=== PATIENT | male | born 1990 | race Caucasian/White ===

== ENCOUNTER 2017-12-24 20:12 | Emergency (ER) | payer BC, MEDICAID ==
--- NOTE | 2017-12-24 20:13 | EDPHY ---
H & P Time Seen by Provider: 12/24/17 20:20 Constitutional: Initial Vital Signs Temperature (C) 36.8 C 12/24/17 20:19 Heart Rate 90 12/24/17 20:19 Respiratory Rate 16 12/24/17 20:19 Blood Pressure 124/86 H 12/24/17 20:19 O2 Sat (%) 95 12/24/17 20:19 O2 Delivery Mode Room Air O2 (L/minute) 2 Allergies/Adverse Reactions: No Known Allergies Allergy (Unverified 12/24/17 20:21) Home Medications: Medication Instructions Recorded NK [No Known Home Meds] 12/24/17 Medical Decision Making ED Course/Re-evaluation: CHIEF COMPLAINT: Alcohol intoxication. HISTORY OF PRESENT ILLNESS: The patient is a chronic alcoholic living on the [address]. Patient drinks on a daily basis and obtains whatever alcohol is available. Patient was found outside the group home where he was waiting for a bed and bystanders called the EMS system. Patient denies any injuries denies loss of consciousness denies any recent trauma. Patient denies co-ingestion. Patient denies suicidal or homicidal behavior. REVIEW OF SYSTEMS: A comprehensive 10 system review of systems is otherwise negative aside from elements mentioned in the history of present illness and medical decision making. PHYSICAL EXAM: General Appearance: Alert, well hydrated, appropriate, and non-toxic appearing. Head: Atraumatic without scalp tenderness or obvious injury Eyes: Pupils equal, round, reactive to light and accommodation, EOMI, no trauma , no injection. Ears: Clear bilaterally, no perforation, normal landmarks Nose: Atraumatic, no rhinorrhea, clear. Throat: There is no erythema or exudates, no lesions, normal tonsils, mucus membranes moist. Neck: Supple, 2+ carotid upstroke, nontender, no lymphadenopathy. Respiratory: No retractions, no distress, no wheezes, and no accessory muscle use. Lungs are clear to auscultation bilaterally. Cardiovascular: Regular rate and rhythm, no murmurs, rubs, or gallops. Bilateral carotid, radial, dorsalis pedis, and posterior tibial pulses intact. Good capillary refill all extremities. Gastrointestinal: Abdomen is soft, nontender, non-distended, no masses, no rebound, no guarding, no peritoneal signs. Musculoskeletal: Normal active ROM of all extremities, atraumatic. Neurological: Alert, appropriate, and interactive. The patient has normal DTRs and non-focal cranial nerves, motor, sensory, and cerebellar exam. Skin: No rashes, good turgor, no nodules on palpation. PAST MEDICAL HISTORY: Denies. PAST SURGICAL HISTORY: Denies. SOCIAL HISTORY: Transient. Lives in [place]. History of alcohol abuse. DIFFERENTIAL DIAGNOSIS: Includes but not limited to alcohol intoxication, polysubstance abuse. MEDICAL DECISION MAKING: I serially examined this patient since the patient's arrival here in the emergency department. The patient continues to become more and more sober with each examination. I serially questioned the patient and the patient's story given initially has not changed. The patient still denies any trauma, any head injury, and any illicit drug use. At this point, the patient is walking the department freely and is clinically sober. We're discharging the patient to the [facility] in stable condition. (Kristofer Davila) I accepted sign-out on this patient at approximately 10:15 p.m.. The patient was eventually able to walk with a steady gait and was [facility] with [facility]. (Sarah Isaacs) - Data Points Medications Given: Discontinued Medications Chlordiazepoxide (Librium 25 Mg Prepack#6) 1 btl TAKEHOME EDNOW ONE Stop: 12/25/17 03:55 Last Admin: 12/25/17 03:55 Dose: 1 btl Chlordiazepoxide HCl (Librium) 25 mg PO EDNOW ONE Stop: 12/25/17 03:51 Last Admin: 12/25/17 03:53 Dose: 25 mg Famotidine (Pepcid) 40 mg IVP EDNOW ONE Stop: 12/24/17 21:55 Last Admin: 12/24/17 22:02 Dose: 40 mg Sodium Chloride (Ns) 1,000 mls @ 0 mls/hr IV EDNOW ONE; Wide Open PRN Reason: Protocol Stop: 12/24/17 20:25 Last Admin: 12/24/17 20:28 Dose: 1,000 mls Ondansetron HCl (Zofran) 4 mg IVP EDNOW ONE Stop: 12/24/17 23:04 Last Admin: 12/24/17 23:04 Dose: 4 mg Promethazine HCl (Phenergan) 12.5 mg IVP ONCE ONE Stop: 12/25/17 00:07 Last Admin: 12/25/17 00:10 Dose: 12.5 mg Departure - Departure Disposition: Home, Routine, Self-Care Clinical Impression: Alcoholic intoxication Qualifiers: Complication of substance-induced condition: with delirium Qualified Code(s): F10.921 - Alcohol use, unspecified with intoxication delirium Vomiting Qualifiers: Vomiting type: unspecified Vomiting Intractability: non-intractable Nausea presence: with nausea Qualified Code(s): R11.2 - Nausea with vomiting, unspecified Condition: Good Instructions: At-Risk Alcohol Use (ED) Additional Instructions: Please return to the emergency department if your worse in any way. Referrals: [facility] [Outside] - As per Instructions Report Scribed for: Kristofer Davila Report Scribed by: Lucila Padron Date of Report: 12/24/17 Time of Report: 20:16
[2017-12-24] MEDS ORDERED: NS 1,000 ML IV ONE (20:24)
[2017-12-24] MEDS ORDERED: FAMOTIDINE 20 MG/2 ML SDV IVP ONE (21:54)
[2017-12-24] MEDS ORDERED: ONDANSETRON 4 MG/2 ML VIAL ONE (22:59)
[2017-12-24] MEDS ORDERED: ONDANSETRON 4 MG/2 ML VIAL IVP ONE (23:03)
[2017-12-25] MEDS ORDERED: PROMETHAZINE HCL 25 MG/ML INJ IVP ONE (00:06)
[2017-12-25] MEDS ORDERED: chlordiazePOXIDE 25 MG CAP PO ONE (03:50)
[2017-12-25] MEDS ORDERED: CHLORDIAZEPOXIDE 25MG PREPK#6 BTL TAKEHOME ONE ×2 (03:52→03:54)
[2017-12-25 04:18] VITALS: BP 158/70
== END 2017-12-25 04:17 | disposition home or self-care (01) ==
DX: F10.921 Alcohol use, unspecified with intoxication delirium (principal); R11.2 Nausea with vomiting, unspecified; E86.9 Volume depletion, unspecified
CPT/HCPCS: 96374; J2405; J2550

== ENCOUNTER 2017-12-26 23:53 | Inpatient (IN) | payer BC, MEDICAID ==
[2017-12-27] MEDS ORDERED: NS 1,000 ML IV ONE (00:03)
[2017-12-27] MEDS ORDERED: FAMOTIDINE 20 MG/NACL 50 ML IV ONE (00:03)
[2017-12-27] MEDS ORDERED: ONDANSETRON 4 MG/2 ML VIAL IVP ONE (00:03)
[2017-12-27] MEDS ORDERED: LORazepam 2 MG/ML INJ IVP ONE (00:03)
[2017-12-27] MEDS ORDERED: LORazepam 2 MG/ML INJ IVP PRN (00:10)
[2017-12-27] MEDS ORDERED: LORazepam 1 MG TAB PO PRN (00:10)
[2017-12-27] MEDS ORDERED: MAGNESIUM SULF 2 GM/WATER 50 ML IV ONE ×2 (00:44→09:18)
[2017-12-27 00:46] LABS: PLATELET COUNT 210 10^3/uL (150-400)
[2017-12-27] MEDS ORDERED: IOPAMIDOL (ISOVUE-300) 100 ML BTL ONE (02:19)
[2017-12-27] MEDS ORDERED: ONDANSETRON DISINTEGRATING 4 MG TAB PO PRN (02:58)
[2017-12-27] MEDS ORDERED: ONDANSETRON 4 MG/2 ML VIAL IVP PRN (02:58)
[2017-12-27] MEDS ORDERED: PROMETHAZINE HCL 25 MG/ML INJ IVP PRN (02:58)
[2017-12-27] MEDS ORDERED: NS 1,000 ML IV SCH (03:00)
[2017-12-27] MEDS ORDERED: FLUMAZENIL 0.5 MG/5 ML MDV IVP PRN (03:04)
--- NOTE | 2017-12-27 03:08 | EDPHY ---
H & P Stated Complaint: ETOH withdrawal, tremors, N/V Time Seen by Provider: 12/26/17 23:55 HPI/ROS: HPI The patient presents with nausea, vomiting, abdominal pain which have been present throughout the day today. Symptoms started slowly and got progressively worse. He has had multiple episodes of emesis which began as clear and then became darker. He drinks alcohol daily, he says whenever he can get and has history of alcohol withdrawal. Since about noon today he has been unable to consume any alcohol because of vomiting. He describes an aching epigastric abdominal pain which is moderate in severity getting progressively worse. He is brought in by ambulance. He has 1 prior episode of pancreatitis in which she was [place] the hospital out of state.. REVIEW OF SYSTEMS 10 systems were reviewed and negative with the exception of the elements mentioned in the history of present illness. PMHx: Hypertension, anxiety, PTSD Soc Hx: Alcohol abuse with history of alcohol withdrawal, homeless, moved to [place] about 3 weeks ago PHYSICAL General Appearance: Uncomfortable appearing with mild tremor Eyes: Pupils equal and round no pallor or injection ENT, Mouth: Mucous membranes moist Respiratory: There are no retractions, lungs are clear to auscultation Cardiovascular: Regular rate and rhythm Gastrointestinal: Abdomen is soft and tender in the epigastrium and left upper quadrant without rebound or guarding Neurological: A&O, moves all extremities, mild hand tremor Skin: Warm and dry, no rashes Musculoskeletal: Neck is supple non tender Extremities: symmetrical, full range of motion Psychiatric: Patient is oriented X 3, there is no agitation Source: Patient, EMS Exam Limitations: No limitations - Personal History Current Tetanus/Diphtheria Vaccine: Unsure - Medical/Surgical History Hx Asthma: No Hx Chronic Respiratory Disease: No Hx Diabetes: No Hx Cardiac Disease: No Hx Renal Disease: No Hx Cirrhosis: No Hx Alcoholism: No Hx HIV/AIDS: No Hx Splenectomy or Spleen Trauma: No Other PMH: HTN, anxiety, PTSD, ETOH - Social History Smoking Status: Current every day smoker Constitutional: Initial Vital Signs Temperature (C) 36.8 C 12/27/17 00:01 Heart Rate 95 12/27/17 00:01 Respiratory Rate 16 12/27/17 00:01 Blood Pressure 150/112 H 12/27/17 00:01 O2 Sat (%) 98 12/27/17 00:01 O2 Delivery Mode Room Air O2 (L/minute) 2 Allergies/Adverse Reactions: gabapentin [From Neurontin] Allergy (Verified 12/27/17 00:03) Home Medications: Medication Instructions Recorded NK [No Known Home Meds] 12/24/17 Medical Decision Making - Diagnostics Imaging Results: CT abdomen pelvis demonstrates mild pancreatitis, fatty liver, discussed with the radiologist prison guard. Imaging: Discussed imaging studies w/ call person Radiologist Differential Diagnosis: 27-year-old homeless male with history of alcohol abuse abuse, 1 episode of pancreatitis, presents with epigastric abdominal pain, nausea vomiting, tremors. I suspect she is suffering from either alcoholic gastritis or pancreatitis which then led to nausea and vomiting which prevented him from consuming his usual alcohol is which has put him into mild alcohol withdrawal. Here, he does not have any ongoing vomiting though does feel nauseated and has tenderness in his epigastrium. In the emergency department, patient received IV fluids, medication for pain and antiemetics. He received 2 doses of 1 mg of Ativan with improvement in his withdrawal symptoms. He had ongoing pain despite treatment here. His labs revealed pancreatitis and transaminitis. CT scan is abdomen was obtained which demonstrated fatty liver and pancreatitis. I consulted with Dr. Reeder of the hospitalist service and she will admit the patient for alcohol withdrawal and symptomatic pancreatitis. The patient is happy with this plan. - Data Points Laboratory Results: Laboratory Results 12/27/17 00:05 12/27/17 00:05 12/27/17 12/27/17 00:05 00:05 WBC 9.17 10^3/uL 10^3/uL (3.80-9.50) RBC 4.89 10^6/uL 10^6/uL (4.40-6.38) Hgb 16.0 g/dL g/dL (13.7-17.5) Hct 44.3 % % (40.0-51.0) MCV 90.6 fL fL (81.5-99.8) MCH 32.7 pg pg (27.9-34.1) MCHC 36.1 g/dL g/dL (32.4-36.7) RDW 13.5 % % (11.5-15.2) Plt Count 210 10^3/uL 10^3/uL (150-400) MPV 10.5 fL fL (8.7-11.7) Neut % (Auto) 81.2 % H % (39.3-74.2) Lymph % (Auto) 10.6 % L % (15.0-45.0) [place] % (Auto) 7.4 % % (4.5-13.0) Eos % (Auto) 0.0 % L % (0.6-7.6) Baso % (Auto) 0.4 % % (0.3-1.7) Nucleat RBC Rel Count 0.0 % % (0.0-0.2) Absolute Neuts (auto) 7.44 10^3/uL H 10^3/uL (1.70-6.50) Absolute Lymphs (auto) 0.97 10^3/uL L 10^3/uL (1.00-3.00) Absolute Monos (auto) 0.68 10^3/uL 10^3/uL (0.30-0.80) Absolute Eos (auto) 0.00 10^3/uL L 10^3/uL (0.03-0.40) Absolute Basos (auto) 0.04 10^3/uL 10^3/uL (0.02-0.10) Absolute Nucleated RBC 0.00 10^3/uL 10^3/uL (0-0.01) Immature Gran % 0.4 % % (0.0-1.1) Immature Gran # 0.04 10^3/uL 10^3/uL (0.00-0.10) Sodium 143 mEq/L mEq/L (135-145) Potassium 3.7 mEq/L mEq/L (3.3-5.0) Chloride 91 mEq/L L mEq/L (97-110) Carbon Dioxide 34 mEq/l H mEq/l (22-31) Anion Gap 18 mEq/L H mEq/L (8-16) BUN 10 mg/dL mg/dL (7-23) Creatinine 0.7 mg/dL mg/dL (0.7-1.3) Estimated GFR > 60 Glucose 116 mg/dL H mg/dL (70-100) Calcium 10.4 mg/dL mg/dL (8.5-10.4) Magnesium 1.4 mg/dL L mg/dL (1.6-2.3) Total Bilirubin 1.9 mg/dL H mg/dL (0.1-1.4) Conjugated Bilirubin 0.6 mg/dL H mg/dL (0.0-0.5) Unconjugated Bilirubin 1.3 mg/dL H mg/dL (0.0-1.1) AST 290 IU/L H IU/L (17-59) ALT 272 IU/L H IU/L (21-72) Alkaline Phosphatase 144 IU/L H IU/L (38-126) Total Protein 8.8 g/dL H g/dL (6.3-8.2) Albumin 5.1 g/dL H g/dL (3.5-5.0) Lipase 2640 IU/L H IU/L (23-300) Medications Given: Lorazepam (Ativan Injection) 0 mg IVP Q1H PRN; Protocol PRN Reason: Alcohol Withdrawal w/IV access Stop: 12/27/17 12:10 Last Admin: 12/27/17 02:05 Dose: 1 mg Discontinued Medications Sodium Chloride (Ns) 1,000 mls @ 0 mls/hr IV EDNOW ONE; Wide Open PRN Reason: Protocol Stop: 12/27/17 00:04 Last Admin: 12/27/17 00:10 Dose: 1,000 mls Famotidine/Sodium Chloride (Pepcid 20 Mg (Premix)) 50 mls @ 200 mls/hr IV EDNOW ONE Stop: 12/27/17 00:17 Last Admin: 12/27/17 00:10 Dose: 50 mls Magnesium Sulfate (Magnesium Sulf 2 Gm (Premix)) 50 mls @ 50 mls/hr IV ONCE ONE Stop: 12/27/17 01:43 Last Admin: 12/27/17 01:21 Dose: 50 mls Lorazepam (Ativan Injection) 1 mg IVP EDNOW ONE Stop: 12/27/17 00:04 Last Admin: 12/27/17 00:10 Dose: 1 mg Ondansetron HCl (Zofran) 4 mg IVP EDNOW ONE Stop: 12/27/17 00:04 Last Admin: 12/27/17 00:11 Dose: 4 mg Departure - Departure Disposition: [facility] Clinical Impression: Acute alcoholic pancreatitis Qualifiers: Acute pancreatitis complication: unspecified Qualified Code(s): K85.20 - Alcohol induced acute pancreatitis without necrosis or infection Alcohol withdrawal Qualifiers: Complication of substance-induced condition: with delirium Qualified Code(s): F10.231 - Alcohol dependence with withdrawal delirium Condition: Fair
[2017-12-27 03:18] LABS: INR 0.89 (0.83-1.16); PROTIME(PATIENT) 12.3 SEC (12.0-15.0)
--- NOTE | 2017-12-27 05:15 | PDGENHP ---
History and Physical - Chief Complaint Abdominal pain, nausea and vomiting - History of Present Illness Source-patient provides history is fair historian. EMR was reviewed and case discussed with ED provider. HPI - this is a 27-year-old gentleman with past medical history significant for alcohol dependence, bipolar disorder, anxiety, PTSD who presents emergency department today with complaints of intractable nausea vomiting for 12 hr as well as epigastric abdominal pain. Patient with longstanding history of alcohol dependence. He reports drinking up to on average 1 L of hard liquor every day. He was seen in the emergency department in treated for alcohol intoxication. Patient has continued to drink alcohol and subsequently developed intractable nausea vomiting. He reports he feels very dehydrated has not yet urinated in many hours. Unknown if patient had any hematemesis. He denies any diarrhea. Patient denies any fevers or chills. In the emergency department patient was treated for acute pancreatitis and nausea vomiting. In addition patient had signs symptoms of increasing withdrawal and was given initial dosing of Ativan 1 mg. History Information - Allergies/Home Medication List Allergies/Adverse Reactions: gabapentin [From Neurontin] Allergy (Verified 12/27/17 00:03) Home Medications: NK [No Known Home Meds] 12/24/17 [Last Taken Unknown] I have personally reviewed and updated: family history, medical history, social history, surgical history - Past Medical History Additional medical history: Bipolar disorder, PTSD, anxiety, alcohol dependence - Surgical History Reports: no pertinent surgical hx - Family History Additional family history: Diabetes in grandparents. Grandfather with history of stroke and [place] - Social History Smoking Status: Current every day smoker Alcohol Use: None Drug Use: None Additional social history: Patient is currently homeless. Recently relocated from [place]. Review of Systems Review of Systems: ROS: 10pt was reviewed & negative except for what was stated in HPI & below Constitutional: Denies: chills, fever Respiratory: Denies: cough, shortness of breath Gastrointestinal: Reports: vomitting, abdominal pain (See HPI), nausea. Denies : black stools, diarrhea Genitourinary: Reports: other (Patient reports that he has not made any urine today) Muscolosketal: Reports: no symptoms Skin: Reports: no symptoms (Patient denies any new rashes or sores) Neurological: Reports: anxiety, emotional problems, tremors Physical Exam Physical Exam: Selected Entries 12/27/17 00:01 Blood Pressure Automatic Method Heart Rate 95 Respiratory 16 Rate O2 Sat (%) 98 Temperature (C) 36.8 C Blood Pressure 150/112 H Mean Arterial 124 H Pressure (MAP) O2 Delivery Room Air Mode Temperature Oral Source Temp Pulse Resp BP Pulse Ox 36.7 C 69 16 119/62 97 12/27/17 03:39 12/27/17 03:39 12/27/17 03:39 12/27/17 03:39 12/27/17 03:39 O2 (L/minute) 2 Constitutional: no apparent distress, unkempt, other (NAD. Pleasant young adult gentleman is lying quietly in bed. He wakes easily to name falls back asleep) Eyes: PERRL (Decreased reactivity light bilaterally but symmetric), anicteric sclera, EOMI (Grossly normal limited secondary to patient's somnolence), No scleral injection Ears, Nose, Mouth, Throat: dry mucous membranes, other (No nasal discharge), No poor dentition Cardiovascular: regular rate and rhythym, no murmur, rub, or gallop, pulses symmetric bilaterally, No edema Peripheral Pulses: 1+: dorsalis-pedis (R), dorsalis-pedis (L) Respiratory: no respiratory distress, no rales or rhonchi, clear to auscultation , No inspiratory crackles Gastrointestinal: no palpable masses, tenderness (Epigastric and upper abdomen) , other (Hypoactive bowel sounds.), No guarding, No distension Genitourinary: no bladder tenderness, No colon in urethra Skin: no rashes or abrasions, other (Skin appears weathered, some abrasions to his distal extremities.) Musculoskeletal: generalized weakness (Patient lying quietly in bed somnolent but moves all extremities.) Neurologic: AAOx3, other (Grossly Nonfocal.), No facial droop Psychiatric: thought process linear, flat affect, No anxious, No depressed, No agitated Lab Data & Imaging Review 12/27/17 00:05 12/27/17 00:05 WBC 9.17 10^3/uL (3.80-9.50) 12/27/17 00:05 RBC 4.89 10^6/uL (4.40-6.38) 12/27/17 00:05 Hgb 16.0 g/dL (13.7-17.5) 12/27/17 00:05 Hct 44.3 % (40.0-51.0) 12/27/17 00:05 MCV 90.6 fL (81.5-99.8) 12/27/17 00:05 MCH 32.7 pg (27.9-34.1) 12/27/17 00:05 MCHC 36.1 g/dL (32.4-36.7) 12/27/17 00:05 RDW 13.5 % (11.5-15.2) 12/27/17 00:05 Plt Count 210 10^3/uL (150-400) 12/27/17 00:05 MPV 10.5 fL (8.7-11.7) 12/27/17 00:05 Neut % (Auto) 81.2 % (39.3-74.2) H 12/27/17 00:05 Lymph % (Auto) 10.6 % (15.0-45.0) L 12/27/17 00:05 [place] % (Auto) 7.4 % (4.5-13.0) 12/27/17 00:05 Eos % (Auto) 0.0 % (0.6-7.6) L 12/27/17 00:05 Baso % (Auto) 0.4 % (0.3-1.7) 12/27/17 00:05 Nucleat RBC Rel Count 0.0 % (0.0-0.2) 12/27/17 00:05 Absolute Neuts (auto) 7.44 10^3/uL (1.70-6.50) H 12/27/17 00:05 Absolute Lymphs (auto) 0.97 10^3/uL (1.00-3.00) L 12/27/17 00:05 Absolute Monos (auto) 0.68 10^3/uL (0.30-0.80) 12/27/17 00:05 Absolute Eos (auto) 0.00 10^3/uL (0.03-0.40) L 12/27/17 00:05 Absolute Basos (auto) 0.04 10^3/uL (0.02-0.10) 12/27/17 00:05 Absolute Nucleated RBC 0.00 10^3/uL (0-0.01) 12/27/17 00:05 Immature Gran % 0.4 % (0.0-1.1) 12/27/17 00:05 Immature Gran # 0.04 10^3/uL (0.00-0.10) 10 00:05 PT 12.3 SEC (12.0-15.0) 12/27/17 00:05 INR 0.89 (0.83-1.16) 12/27/17 00:05 APTT 27.2 SEC (23.0-38.0) 12/27/17 00:05 Sodium 143 mEq/L (135-145) 12/27/17 00:05 Potassium 3.7 mEq/L (3.3-5.0) 12/27/17 00:05 Chloride 91 mEq/L (97-110) L 12/27/17 00:05 Carbon Dioxide 34 mEq/l (22-31) H 12/27/17 00:05 Anion Gap 18 mEq/L (8-16) H 12/27/17 00:05 BUN 10 mg/dL (7-23) 12/27/17 00:05 Creatinine 0.7 mg/dL (0.7-1.3) 12/27/17 00:05 Estimated GFR > 60 12/27/17 00:05 Glucose 116 mg/dL (70-100) H 12/27/17 00:05 Calcium 10.4 mg/dL (8.5-10.4) 12/27/17 00:05 Magnesium 1.4 mg/dL (1.6-2.3) L 12/27/17 00:05 Total Bilirubin 1.9 mg/dL (0.1-1.4) H 12/27/17 00:05 Conjugated Bilirubin 0.6 mg/dL (0.0-0.5) H 12/27/17 00:05 Unconjugated Bilirubin 1.3 mg/dL (0.0-1.1) H 12/27/17 00:05 AST 290 IU/L (17-59) H 12/27/17 00:05 ALT 272 IU/L (21-72) H 12/27/17 00:05 Alkaline Phosphatase 144 IU/L (38-126) H 12/27/17 00:05 Total Protein 8.8 g/dL (6.3-8.2) H 12/27/17 00:05 Albumin 5.1 g/dL (3.5-5.0) H 12/27/17 00:05 Lipase 2640 IU/L (23-300) H 12/27/17 00:05 Imaging Review: Preliminary radiology report as noted below. Final report pending. early pancreatitis fatty hepatomegally riguzzi 2:45 am Visualized and Interpreted imaging results: Yes Assessment & Plan Assessment: 27-year-old male with history of alcohol dependence, bipolar disorder, anxiety, PTSD presents to the ED with complaints of intractable nausea vomiting and epigastric pain #Acute alcoholic pancreatitis (Acute) - # intractable nausea vomiting - Zofran Phenergan p.r.n. # abdominal pain - pain improved since arrival. Dilaudid available p.r.n.. #Alcohol withdrawal (Acute) - CIWA protocol in place. Patient received 2 mg Ativan since arrival to the floor and his CIWA score was minimal. At time of my interview patient was with a baseline tremor but he is quite cooperative and somnolent. # transaminitis - continue to monitor LFTs. Likely secondary to alcoholic hepatitis # hyperbilirubinemia - due to alcohol dependence. IV fluids as noted above. # hypomagnesemia - replacement has been given in the emergency department will continue monitor replace if needed. # anion gap metabolic acidosis - likely related to starvation ketosis in setting of intractable nausea vomiting and significant dehydration. Chronic medical issues Bipolar disorder - Ativan available p.r.n. and through CIWA protocol Anxiety - Ativan available p.r.n. PTSD - Ativan available p.r.n. FEN - continue IV fluid hydration. Electrolyte monitoring replacement as noted above. NPO status. PPX-SCDs. Anticoagulation with Lovenox. Cor status-full Disposition-patient admitted inpatient status on the [facility] floor for his acute pancreatitis
--- NOTE | 2017-12-27 05:43 | CPEKG ---
Test Reason : OPEN Blood Pressure : / mmHG Vent. Rate : 083 BPM Atrial Rate : 084 BPM P-R Int : 132 ms QRS Dur : 100 ms QT Int : 405 ms P-R-T Axes : 035 102 028 degrees QTc Int : 476 ms Sinus rhythm Left posterior fascicular block Abnormal inferior Q waves Borderline T abnormalities, anterior leads Borderline prolonged QT interval Confirmed by Sarah Isaacs ([id number]) on 12/27/2017 5:42:44 AM Referred By: Confirmed By:Sarah Isaacs
[2017-12-27] MEDS ORDERED: PROTOCOL MAGNESIUM 1 DOSE IV PRN (08:45)
[2017-12-27] MEDS: FAMOTIDINE 20 MG/NACL 50 ML IV SCH ×2 (09:22→20:59)
[2017-12-27] MEDS: ENOXAPARIN 40 MG/0.4 ML SYR SC SCH (09:22)
[2017-12-27] MEDS: THIAMINE HCL 500 MG in NS 100 ML IV SCH (09:22)
--- NOTE | 2017-12-27 09:40 | PDMN ---
Medical Necessity Medical necessity: MCG: M595 substance related disorders A-2 days, M250 pancreatitis 2 days: : presents with intractable N/V., adb. pain., acute alcoholic pancreatitis,( Lipase 2640) CIWA initiated, tremors noted, cont. to monitor LFT's, transaminitis, hyperbilirubeniemia, hypomagnesemia, anion gap metabolic acidosis. pt will be NPO anticipate > 2 MN ongoing med nec care, tx and further eval.
[2017-12-27] MEDS: HYDROmorphONE/DILAUDID 2 MG/ML INJ IVP PRN ×3 (09:46→22:50)
--- NOTE | 2017-12-27 09:49 | HOSPPROG ---
Hospitalist Progress Note Assessment/Plan: 27-year-old male with history of alcohol dependence, bipolar disorder, anxiety, PTSD admitted with acute pancreatitis and alcohol WD #Acute alcoholic pancreatitis (Acute) - # intractable nausea vomiting - Phenergan p.r.n. # abdominal pain - pain improved since arrival. Dilaudid available p.r.n.. #Alcohol withdrawal (Acute) - CIWA protocol in place. Patient received 2 mg Ativan since arrival to the floor and his CIWA score was minimal. # transaminitis - continue to monitor LFTs. Likely secondary to alcoholic hepatitis # hyperbilirubinemia - due to alcohol dependence. IV fluids as noted above. # hypomagnesemia. # anion gap metabolic acidosis - likely related to starvation ketosis in setting of intractable nausea vomiting and significant dehydration *abnormal EKG *prolonged QT syndrome *Bipolar disorder - Ativan available p.r.n. and through CIWA protocol *Anxiety - Ativan available p.r.n. *PTSD - Ativan available p.r.n. FEN - continue IV fluid hydration. Electrolyte monitoring replacement as noted above. NPO status. PPX-SCDs. Anticoagulation with Lovenox. Cor status-full Plan: He is actively WD. Given his hx of daily ETOH abuse, will start long acting Benzo in addition to CIWA cont IVF, will change to NS + KCl Stop meds (Zofran) which prolong QT recheck EKG in a.m. cont NPO, will provide Ice chips recheck Magnesium and replace accordingly Subjective: hx of cocaine use. denies prior heart attack. no cp. still with abd pain but better. Tremulous Objective: Vital Signs Temp Pulse Resp BP Pulse Ox 36.8 C 70 16 114/66 92 12/27/17 07:54 12/27/17 07:54 12/27/17 07:54 12/27/17 07:54 12/27/17 07:54 12/26/17 12/27/17 12/28/17 05:59 05:59 05:59 Intake Total 1050 Balance 1050 PT 12.3 SEC (12.0-15.0) 12/27/17 00:05 INR 0.89 (0.83-1.16) 12/27/17 00:05 - Physical Exam Constitutional: no apparent distress Eyes: PERRL Ears, Nose, Mouth, Throat: dry mucous membranes Cardiovascular: regular rate and rhythym, no murmur, rub, or gallop, systolic murmur Respiratory: no respiratory distress Gastrointestinal: normoactive bowel sounds, tenderness Skin: warm Musculoskeletal: full muscle strength Neurologic: AAOx3 Psychiatric: interacting appropriately, not encephalopathic, anxious Lymph, Heme, Immunologic: No petechiae ICD10 Worksheet Patient Problems: Problems Problem Status Onset Acute alcoholic pancreatitis Acute Alcohol withdrawal Acute
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
[2017-12-27] MEDS: NS W/ 20 KCl/L 1,000 ML IV SCH ×2 (10:52→19:47)
[2017-12-27] MEDS: DIAZEPAM 5 MG/ML 1 ML SYR IVP SCH ×3 (10:52→22:51)
--- NOTE | 2017-12-27 11:16 | ASMTCMCOM ---
CM Note CM Note Notes: Reviewed chart, pt is a homeless young man. He is an alcoholic, he drinks 1L of hard liquor per day. Spoke with RN, pt not appropriate to talk to today, he is still withdrawing. Medicaid application will be submitted for him today. DC Plan: TBD Date Signed: 12/27/2017 11:15 AM Electronically Signed By:Melina Tracy RN
[2017-12-27] MEDS: LORazepam 2 MG/ML INJ IVP PRN ×3 (11:27→19:47)
[2017-12-28] MEDS: HYDROmorphONE/DILAUDID 2 MG/ML INJ IVP PRN ×3 (02:35→16:33)
[2017-12-28] MEDS: NS W/ 20 KCl/L 1,000 ML IV SCH ×3 (03:47→17:36)
[2017-12-28 05:40] LABS: PLATELET COUNT 143 10^3/uL (150-400)
[2017-12-28] MEDS: DIAZEPAM 5 MG/ML 1 ML SYR IVP SCH ×3 (05:54→23:01)
[2017-12-28] MEDS: ENOXAPARIN 40 MG/0.4 ML SYR SC SCH (09:35)
[2017-12-28] MEDS: FAMOTIDINE 20 MG/NACL 50 ML IV SCH ×2 (09:35→20:26)
[2017-12-28] MEDS: THIAMINE HCL 500 MG in NS 100 ML IV SCH (10:57)
--- NOTE | 2017-12-28 11:41 | HOSPPROG ---
Hospitalist Progress Note Assessment/Plan: 27-year-old male with history of alcohol dependence, bipolar disorder, anxiety, PTSD admitted with acute pancreatitis and alcohol WD #Acute alcoholic pancreatitis (Acute) - # intractable nausea vomiting - Phenergan p.r.n. # abdominal pain - pain improved since arrival. Dilaudid available p.r.n.. #Alcohol withdrawal (Acute) - [facility] protocol in place. Patient received 2 mg Ativan since arrival to the floor and his CIWA score was minimal. # transaminitis - continue to monitor LFTs. Likely secondary to alcoholic hepatitis # hyperbilirubinemia - due to alcohol dependence. IV fluids as noted above. # hypomagnesemia. # anion gap metabolic acidosis - likely related to starvation ketosis in setting of intractable nausea vomiting and significant dehydration *abnormal EKG *prolonged QT syndrome *Bipolar disorder - Ativan available p.r.n. and through CIWA protocol *Anxiety - Ativan available p.r.n. *PTSD - Ativan available p.r.n. #Sinus Bradycardia, likely Benzo induced FEN - continue IV fluid hydration. Electrolyte monitoring replacement as noted above. NPO status. PPX-SCDs. Anticoagulation with Lovenox. Cor status-full Plan: Still with acute pancreatitis. cont with IVF and bowel rest. No Ice as he has been taking in too much cont with scheduled Valium and Ativan as needed. Will need to monitor Hr closely EKG shows inferior Q waves. Will likely need a TTE once acute issues are resolved Pain mgmt repeat labs in a.m. Subjective: no cp or sob. still with abd pain. afebrile. bradycardia present Objective: Vital Signs Temp Pulse Resp BP Pulse Ox 36.2 C 40 L 14 124/85 H 92 12/28/17 08:00 12/28/17 08:00 12/28/17 08:00 12/28/17 08:00 12/28/17 08:00 Laboratory Results 12/28/17 05:30 12/28/17 05:10 12/27/17 12/28/17 12/29/17 05:59 05:59 05:59 Intake Total 1050 2785 Output Total 450 350 Balance 1050 2335 -350 PT 12.3 SEC (12.0-15.0) 12/27/17 00:05 INR 0.89 (0.83-1.16) 12/27/17 00:05 - Physical Exam Constitutional: no apparent distress Eyes: PERRL Ears, Nose, Mouth, Throat: moist mucous membranes, hearing normal Cardiovascular: bradycardia Respiratory: no respiratory distress, no rales or rhonchi, clear to auscultation Gastrointestinal: tenderness, No rebound, No distension Skin: warm Neurologic: AAOx3 Psychiatric: interacting appropriately, not anxious, not encephalopathic Lymph, Heme, Immunologic: No petechiae ICD10 Worksheet Patient Problems: Problems Problem Status Onset Acute alcoholic pancreatitis Acute Alcohol withdrawal Acute
--- NOTE | 2017-12-28 11:41 | ASMTCAGE ---
CAGE Do you feel you ought to Answers: Yes cut down on your drinking or drug use? Do people annoy you by Answers: No criticizing your drinking or drug use? Do you feel guilty about Answers: Yes your drinking or drug use? Do you drink or use drugs Answers: Yes first thing in the morning ([employer])? Additional Comments daily marijuana use 1/2 gram. In addition 1 pint to 1 L of vodka daily Date Signed: 12/28/2017 11:40 AM Electronically Signed By:Kathy Chavez RN
--- NOTE | 2017-12-28 12:02 | ASMTCMCOM ---
CM Note CM Note Notes: 12/28/2017 Case Management Note Met w/pt. Pt on CIWA protocol for withdrawl. Pt has flat affect and spoke softly making it difficult to hear at times but able to participate in conversation. CAGE complete. Pt reports lengthy struggle with addiction. Confirms current use of marijuana and alcohol with history of cocaine use. Pt reports a diagnosis of bipolar, anxiety, depression and PTSD. Pt reports taking Trazadone, Seroquel, Mirtazapine and Klonopin while at an inpatient treatment center in [facility] in 2017. Pt unable to recall name of facility. Pt reported Trazadone helped him sleep but didn't find the rest of the meds helpful and discontinued them shortly after completing rehab. Pt reports that his mother approximately 6 months ago from kidney failure. Pt and mother had achieved sobriety prior to her passing. Pt resumed drinking upon her . Pt reports a younger brother in [place] that he is not in contact with any longer. Pt states has no relationship with his father. 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 Pt came to [place]. Pt spent the night at the residential but has not completed the coordinated entry process. Discussed difficulties with finding inpatient residential treatment with Medicaid. Provided resources for private counselors, [facility], [employer] in [place] and the coordinated entry process for the residential. Case Management d/c poc: anticipating to the street Case Management will follow. Date Signed: 12/28/2017 12:01 PM Electronically Signed By:Kathy Chavez RN
--- NOTE | 2017-12-28 12:13 | CPEKG ---
Test Reason : OPEN Blood Pressure : / mmHG Vent. Rate : 044 BPM Atrial Rate : 043 BPM P-R Int : 133 ms QRS Dur : 100 ms QT Int : 483 ms P-R-T Axes : 021 085 033 degrees QTc Int : 414 ms Sinus bradycardia Abnormal inferior Q waves Confirmed by Marlon Jefferson ([id number]) on 12/28/2017 12:13:10 PM Referred By: Confirmed By:Marlon Jefferson
[2017-12-28] MEDS: LORazepam 2 MG/ML INJ IVP PRN ×3 (12:56→20:26)
[2017-12-28] MEDS: NICOTINE 14 MG/24 HR PATCH TD SCH (23:01)
[2017-12-29] MEDS: NS W/ 20 KCl/L 1,000 ML IV SCH ×2 (00:06→06:06)
[2017-12-29] MEDS: LORazepam 2 MG/ML INJ IVP PRN ×6 (00:11→20:59)
[2017-12-29] MEDS: HYDROmorphONE/DILAUDID 2 MG/ML INJ IVP PRN ×3 (01:26→15:40)
[2017-12-29 06:04] LABS: PLATELET COUNT 163 10^3/uL (150-400)
[2017-12-29] MEDS: DIAZEPAM 5 MG/ML 1 ML SYR IVP SCH (06:31)
[2017-12-29] MEDS ORDERED: MAGNESIUM SULF 1 GM/DEXTROSE 100 ML IV ONE (08:31)
[2017-12-29] MEDS: THIAMINE HCL 500 MG in NS 100 ML IV SCH (08:49)
[2017-12-29] MEDS: FAMOTIDINE 20 MG/NACL 50 ML IV SCH ×2 (08:50→20:30)
[2017-12-29] MEDS: ENOXAPARIN 40 MG/0.4 ML SYR SC SCH (08:50)
[2017-12-29] MEDS: NICOTINE 14 MG/24 HR PATCH TD SCH (08:50)
--- NOTE | 2017-12-29 11:05 | HOSPPROG ---
Hospitalist Progress Note Assessment/Plan: 27-year-old male with history of alcohol dependence, bipolar disorder, anxiety, PTSD admitted with acute pancreatitis and alcohol WD #Acute alcoholic pancreatitis (Acute) - # intractable nausea vomiting - Phenergan p.r.n. # abdominal pain - pain improved since arrival. Dilaudid available p.r.n.. #Alcohol withdrawal (Acute) - CIWA protocol in place. # transaminitis - continue to monitor LFTs. Likely secondary to alcoholic hepatitis # hyperbilirubinemia - due to alcohol dependence. # hypomagnesemia, on replacement protocol # anion gap metabolic acidosis - likely related to starvation ketosis in setting of intractable nausea vomiting and significant dehydration *abnormal EKG *prolonged QT syndrome *Bipolar disorder - Ativan available p.r.n. and through CIWA protocol *Anxiety - Ativan available p.r.n. *PTSD - Ativan available p.r.n. #Sinus Bradycardia, likely Benzo induced FEN - continue IV fluid hydration. Electrolyte monitoring replacement as noted above. NPO status. PPX-SCDs. Anticoagulation with Lovenox. Cor status-full Plan: start CLD Stop IVF Stop Diazepam Cont CIWA with Ativan cont inpatient Subjective: was asleep last night. no Diazepam given at night. still with mild tremor. Feels better. Abd pain is better too. Objective: Vital Signs Temp Pulse Resp BP Pulse Ox 37.7 C 71 14 139/96 H 95 12/29/17 07:54 12/29/17 07:54 12/29/17 07:54 12/29/17 07:54 12/29/17 07:54 Laboratory Results 12/29/17 05:02 12/29/17 05:02 12/28/17 12/29/17 12/30/17 05:59 05:59 05:59 Intake Total 2785 3755 Output Total 450 3150 1375 Balance 2335 605 -1375 PT 12.3 SEC (12.0-15.0) 12/27/17 00:05 INR 0.89 (0.83-1.16) 12/27/17 00:05 - Physical Exam Constitutional: no apparent distress Eyes: PERRL Ears, Nose, Mouth, Throat: moist mucous membranes, hearing normal Cardiovascular: regular rate and rhythym Respiratory: no respiratory distress, no rales or rhonchi Gastrointestinal: normoactive bowel sounds, soft, non-tender abdomen, tenderness (mild mid epigastric), No rebound, No distension Skin: warm Neurologic: AAOx3 Psychiatric: interacting appropriately, not encephalopathic, anxious Lymph, Heme, Immunologic: No petechiae ICD10 Worksheet Patient Problems: Problems Problem Status Onset Acute alcoholic pancreatitis Acute Alcohol withdrawal Acute
[2017-12-30] MEDS: LORazepam 2 MG/ML INJ IVP PRN (02:01)
[2017-12-30] MEDS: HYDROmorphONE/DILAUDID 2 MG/ML INJ IVP PRN (03:08)
[2017-12-30] MEDS: THIAMINE HCL 100 MG TAB PO SCH (08:03)
[2017-12-30] MEDS: ENOXAPARIN 40 MG/0.4 ML SYR SC SCH (08:03)
[2017-12-30] MEDS: FAMOTIDINE 20 MG/NACL 50 ML IV SCH ×2 (08:03→08:09)
[2017-12-30] MEDS: NICOTINE 14 MG/24 HR PATCH TD SCH (08:04)
[2017-12-30] MEDS: MAGNESIUM SULF 1 GM/DEXTROSE 100 ML IV ONE ×2 (08:04→08:09)
--- NOTE | 2017-12-30 09:48 | HOSPPROG ---
Hospitalist Progress Note Assessment/Plan: 27-year-old male with history of alcohol dependence, bipolar disorder, anxiety, PTSD admitted with acute pancreatitis and alcohol WD. He is tolerating a CLD. His lipase cont to be mildly elevated. He cont to have abd pain, although improved. He will cont with a CLD. Saltine crackers ok. Can hopefully advance diet tomorrow. He is off IVF. His IV infiltrated this morning and he has requested no IV. Meds will be changed to PO. Ativan PO as needed for anxiety and WD symptoms which have improved significantly. #Acute alcoholic pancreatitis # intractable nausea vomiting - Phenergan p.r.n. # abdominal pain - pain improved since arrival. Dilaudid available p.r.n.. #Alcohol withdrawal (Acute) - [facility] protocol in place. # transaminitis - continue to monitor LFTs. Likely secondary to alcoholic hepatitis # hyperbilirubinemia - due to alcohol dependence. # hypomagnesemia, on replacement protocol # anion gap metabolic acidosis - likely related to starvation ketosis in setting of intractable nausea vomiting and significant dehydration *abnormal EKG: will check TTE today *prolonged QT syndrome *Bipolar disorder - Ativan available p.r.n. and through CIWA protocol *Anxiety - Ativan available p.r.n. *PTSD - Ativan available p.r.n. #Sinus Bradycardia, likely Benzo induced: TTE per above FEN - continue IV fluid hydration. Electrolyte monitoring replacement as noted above. NPO status. PPX-SCDs. Anticoagulation with Lovenox. Cor status-full cont inpatient Subjective: no cp or sob. still with some anxiety and WD but much improved. Still with abd pain, but improving. no n/v Objective: Vital Signs Temp Pulse Resp BP Pulse Ox 36.7 C 47 L 16 127/90 H 97 12/30/17 07:23 12/30/17 07:23 12/30/17 07:23 12/30/17 07:23 12/30/17 07:23 Laboratory Results 12/29/17 05:02 12/30/17 05:37 12/29/17 12/30/17 12/31/17 05:59 05:59 05:59 Intake Total 3755 650 Output Total 3150 3400 Balance 605 -2750 PT 12.3 SEC (12.0-15.0) 12/27/17 00:05 INR 0.89 (0.83-1.16) 12/27/17 00:05 - Physical Exam Constitutional: no apparent distress Eyes: PERRL Ears, Nose, Mouth, Throat: moist mucous membranes Cardiovascular: regular rate and rhythym Respiratory: no respiratory distress Gastrointestinal: normoactive bowel sounds, tenderness Skin: warm Neurologic: AAOx3 Psychiatric: interacting appropriately, not anxious, not encephalopathic Lymph, Heme, Immunologic: No petechiae ICD10 Worksheet Patient Problems: Problems Problem Status Onset Acute alcoholic pancreatitis Acute Alcohol withdrawal Acute
[2017-12-30] MEDS: LORazepam 0.5 MG TAB PO PRN ×3 (11:20→22:05)
--- NOTE | 2017-12-30 12:59 | ECHO ---
[email or web address] [address] Main: [phone] Fax: Transthoracic Echocardiogram Name: JUVENCIO HICKMAN MR#: [id number] Study Date: 12/30/2017 Study Time: 11:44 AM Date of : 1990 Age: 27 year(s) Height: 167.6 cm (66 in.) Weight: 106.14 kg (234 lb.) BSA: 2.14 m2 Gender: Male Examination: Echo Indication: Inferior Q waves, Hx of Cocaine/Polysubstance abuse Image Quality: Contrast: Requested by: Marcio Crook BP: 122 mmHg/77 mmHg Heart Rate: Rhythm: Indication: Inferior Q waves, Hx of Cocaine/Polysubstance abuse Procedure Staff Manager Fine Dining: Peter Valera RDCS Reading Physician: Po Bernal MD Requesting Provider: Measurements: Chambers Valvular Assessment AV/MV Valvular Assessment TV/PV Normal Normal Normal Name Value Range Name Value Range Name Value Range Ao Crystal (MM): 3.4 cm (2.2 cm-3.7 AV Vmax: 1.15 m/s (1 m/s-1.7 PV Vmax: 0.69 m/s (0.6 m/s-0.9 cm) m/s) m/s) IVSd (2D): 1.0 cm (0.6 cm-1.1 AV maxP mmHg ( - ) PV PGmax: 2 mmHg ( - ) cm) LVOT Vmax: 0.71 m/s (0.7 m/s-1.1 LVDd (2D): 5.4 cm (4.2 cm-5.9 m/s) cm) MV E Vmax: 0.55 m/s ( - ) LVDs (2D): 3.5 cm (2.1 cm-4 MV A Vmax: 0.44 m/s ( - ) cm) MV E/A: 1.25 ( - ) LVPWd (2D): 1.0 cm (0.6 cm-1 cm) LVEF (2D): 62 (>=54 %) Continued Measurements: Chambers Valvular Assessment AV/MV Name Value Name Value LADs Lon.6 cm MV E' Septal: 0.08 m/s LA Area: 14.0 cm2 MV E/E' Septal: 6.50 LA Volume: 41 ml MV E/E' Lateral: 6.50 LA Volume Index: 19.2 ml/m2 Findings: Left Ventricle: Normal size left ventricle. No LV hypertrophy. Normal global systolic LV function. EF is 62 %. No Patient: JUVENCIO HICKMAN Study Date: 12/30/2017 Page 1 of 2 11:44 AM regional wall motion abnormality. Normal diastolic LV function. Right Ventricle: Normal size right ventricle. Left Atrium: The left atrium is normal in size. Right Atrium: The right atrium is normal in size. Mitral Valve: The mitral valve is normal in appearance and function. Aortic Valve: The aortic valve is normal in appearance and function. Tricuspid Valve: The tricuspid valve is normal in appearance and function. Pulmonic Valve: The pulmonic valve is normal in appearance and function. Aorta: The aorta is normal. Pericardium: No pericardial effusion. Exam Comments: Bradycardia. (No Signature Object) Patient: JUVENCIO HICKMAN Study Date: 12/30/2017 Page 2 of 2 11:44 AM [id number]
[2017-12-30] MEDS: oxyCODONE IR 5 MG TAB PO PRN ×3 (15:15→22:06)
[2017-12-30] MEDS: PANTOPRAZOLE SODIUM 40 MG TAB PO SCH (15:15)
[2017-12-31] MEDS: oxyCODONE IR 5 MG TAB PO PRN ×6 (02:03→23:08)
[2017-12-31] MEDS: LORazepam 0.5 MG TAB PO PRN ×6 (02:04→23:08)
--- NOTE | 2017-12-31 10:09 | ASMTCMCOM ---
CM Note CM Note Notes: Pt will most likely d/c independent when medically stable. Resources have been given. CM available for changes. Plan: Independent Date Signed: 12/31/2017 10:08 AM Electronically Signed By:JUNIE Howell
[2017-12-31] MEDS: ENOXAPARIN 40 MG/0.4 ML SYR SC SCH ×2 (10:21→11:17)
[2017-12-31] MEDS ORDERED: MAGNESIUM HYDROXIDE 30 ML UDCUP PO PRN (10:46)
[2017-12-31] MEDS ORDERED: POLYETHYLENE GLYCOL 3350 17 GM PKT PO PRN (10:46)
[2017-12-31] MEDS ORDERED: LACTULOSE 20 GM/30 ML UDCUP PO PRN (10:46)
[2017-12-31] MEDS ORDERED: BISACODYL 10 MG SUPP PR PRN (10:46)
[2017-12-31] MEDS: PANTOPRAZOLE SODIUM 40 MG TAB PO SCH (11:17)
[2017-12-31] MEDS: THIAMINE HCL 100 MG TAB PO SCH (11:17)
[2017-12-31] MEDS: NICOTINE 14 MG/24 HR PATCH TD SCH (11:17)
--- NOTE | 2017-12-31 11:47 | HOSPPROG ---
Hospitalist Progress Note Assessment/Plan: 27-year-old male with history of alcohol dependence, bipolar disorder, anxiety, PTSD admitted with acute pancreatitis and alcohol WD. He is tolerating a CLD. His lipase cont to be mildly elevated. He cont to have abd pain, although improved. He will cont with a CLD. Saltine crackers ok. Can hopefully advance diet tomorrow. He is off IVF. His IV infiltrated this morning and he has requested no IV. Meds will be changed to PO. Ativan PO as needed for anxiety and WD symptoms which have improved significantly. #Acute alcoholic pancreatitis # intractable nausea vomiting - Phenergan p.r.n., tolerated CLD yesterday, will advance as tolerated today # abdominal pain - pain improved since arrival. Dilaudid available p.r.n.. #Alcohol withdrawal (Acute) - [facility] protocol in place. # transaminitis - continue to monitor LFTs. Likely secondary to alcoholic hepatitis # hyperbilirubinemia - due to alcohol dependence. # hypomagnesemia, on replacement protocol # anion gap metabolic acidosis - likely related to starvation ketosis in setting of intractable nausea vomiting and significant dehydration *abnormal EKG: TTE WNL *prolonged QT syndrome *Bipolar disorder - Ativan available p.r.n. and through CIWA protocol *Anxiety - Ativan available p.r.n. *PTSD - Ativan available p.r.n. #Sinus Bradycardia, likely Benzo induced: TTE per above FEN - continue IV fluid hydration. Electrolyte monitoring replacement as noted above. Advance diet as tolerated PPX-SCDs. Anticoagulation with Lovenox. Cor status-full cont inpatient, if tolerated diet with improved pain, possible d/c tomorrow Subjective: Patient reports 6/10 abdominal pain, he tolerated CLD well yesterday Objective: Vital Signs Temp Pulse Resp BP Pulse Ox 36.4 C 42 L 16 115/79 98 12/31/17 07:31 12/31/17 07:31 12/31/17 07:31 12/31/17 07:31 12/31/17 07:31 Laboratory Results 12/29/17 05:02 12/31/17 04:34 12/30/17 12/31/17 01/01/18 05:59 05:59 05:59 Intake Total 650 2000 Output Total 3400 Balance -2750 2000 PT 12.3 SEC (12.0-15.0) 12/27/17 00:05 INR 0.89 (0.83-1.16) 12/27/17 00:05 - Physical Exam Constitutional: no apparent distress Eyes: PERRL Ears, Nose, Mouth, Throat: moist mucous membranes Cardiovascular: regular rate and rhythym Respiratory: clear to auscultation Gastrointestinal: tenderness (TTP in epigastric area) Genitourinary: no bladder fullness Skin: warm Musculoskeletal: full muscle strength Neurologic: AAOx3 Psychiatric: interacting appropriately ICD10 Worksheet Patient Problems: Problems Problem Status Onset Acute alcoholic pancreatitis Acute Alcohol withdrawal Acute
[2017-12-31] MEDS: SENNOSIDES/DOCUSATE SODIUM TAB PO SCH (20:07)
[2017-12-31 23:15] VITALS: BP 126/86
[2018-01-01] MEDS: oxyCODONE IR 5 MG TAB PO PRN ×2 (05:19→10:38)
[2018-01-01] MEDS: LORazepam 0.5 MG TAB PO PRN ×2 (05:19→10:37)
[2018-01-01] MEDS: PANTOPRAZOLE SODIUM 40 MG TAB PO SCH (10:38)
[2018-01-01] MEDS: THIAMINE HCL 100 MG TAB PO SCH (10:38)
[2018-01-01] MEDS: SENNOSIDES/DOCUSATE SODIUM TAB PO SCH (10:38)
[2018-01-01] MEDS: ENOXAPARIN 40 MG/0.4 ML SYR SC SCH (10:38)
[2018-01-01] MEDS: NICOTINE 14 MG/24 HR PATCH TD SCH ×2 (10:39→10:44)
--- NOTE | 2018-01-01 11:46 | PDDCSUM ---
Discharge Summary Discharge Summary: Date of Admission: 12/27/2017 Date of Discharge: 01/01/2018 Consults: N/A Followup: PCP Hospital Course Problem List: 27-year-old male with history of alcohol dependence, bipolar disorder, anxiety, PTSD admitted with acute pancreatitis and alcohol WD. # Acute alcoholic pancreatitis # intractable nausea vomiting # abdominal pain - pain improved since arrival. # Alcohol withdrawal (Acute) - CIWA protocol in place. # transaminitis - Likely secondary to alcoholic hepatitis # hyperbilirubinemia - due to alcohol dependence. # hypomagnesemia, was on replacement protocol # anion gap metabolic acidosis - likely related to starvation ketosis in setting of intractable nausea vomiting and significant dehydration * abnormal EKG: Qwaves seen in inferior leads, TTE performed which was normal * prolonged QT syndrome * Bipolar disorder - Was on CIWA protocol during IP stay * Anxiety * PTSD Time spent on patient discharge was 35 minutes with >50% of time spent on patient education and counseling
--- NOTE | 2018-01-01 11:51 | ASMTDCNOTE ---
Case Management Discharge Discharge Order Complete? Answers: Yes Patient to Obtain Answers: Independently Medications Transportation Arranged Answers: Bus Tokens EMTALA Complete Answers: No Case Management Transport Answers: No Form Complete Faxed Final Orders Answers: No Agency/Facility Transfer Answers: No Report Printed & Faxed to Receiving Agency Family Notified Answers: No Discharge Comments Notes: Pts case discussed w/ [address] and Dr. Fabian. Pt is being discharged today. CM provided pt w/ additional resources, a bus pass and made a reservation w/ the [facility]. No other needs at this time. CM available for changes. Plan: Independent Date Signed: 01/01/2018 11:50 AM Electronically Signed By:JUNIE Howell
== END 2018-01-01 12:06 | disposition home or self-care (01) | DRG 282 ==
LOC: EDUNIT# → EDBD → F3E 12-27 03:30
PROVIDERS: ADMIT Family Medicine; ATTEND Family Medicine
DX: K85.20 Alcohol induced acute pancreatitis without necrosis or infection (principal); E83.42 Hypomagnesemia; E87.2 Acidosis; K70.10 Alcoholic hepatitis without ascites; F10.239 Alcohol dependence with withdrawal, unspecified; F31.9 Bipolar disorder, unspecified; F41.9 Anxiety disorder, unspecified; F43.10 Post-traumatic stress disorder, unspecified; E80.6 Other disorders of bilirubin metabolism; E86.0 Dehydration; I45.81 Long QT syndrome; Z59.0 Homelessness
CPT/HCPCS: 96365; J1170; J1650; J2060; J2405; J3360; J3411; J3475; Q9967

== ENCOUNTER 2018-01-03 20:41 | Inpatient (IN) | payer MEDICAID ==
[2018-01-03] MEDS ORDERED: NS 1,000 ML IV ONE ×2 (20:46)
[2018-01-03] MEDS ORDERED: chlordiazePOXIDE 25 MG CAP PO ONE (20:46)
[2018-01-03] MEDS ORDERED: ONDANSETRON DISINTEGRATING 4 MG TAB PO ONE (20:46)
[2018-01-03] MEDS ORDERED: LORazepam 2 MG/ML INJ IVP ONE (20:46)
[2018-01-03] MEDS ORDERED: PANTOPRAZOLE SODIUM 40 MG VIAL IVP ONE (20:47)
--- NOTE | 2018-01-03 20:47 | EDPHY ---
H & P Source: Patient, RN/MD, EMS Exam Limitations: Intoxication - Medical/Surgical History Hx Asthma: No Hx Chronic Respiratory Disease: No Hx Diabetes: No Hx Cardiac Disease: No Hx Renal Disease: No Hx Cirrhosis: No Hx Alcoholism: No Hx HIV/AIDS: No Hx Splenectomy or Spleen Trauma: No Other PMH: HTN, anxiety, PTSD, ETOH - Social History Smoking Status: Current every day smoker Time Seen by Provider: 01/03/18 20:43 HPI/ROS: HPI: This is a 27-year-old male who presents with Chief Complaint: Alcohol intoxication Location:body Quality: Alcohol withdrawal Duration: Today Signs and Symptoms: no fever, + nausea, no vomiting, no hematemesis, no blood in stool, no abdominal bloating, no diarrhea, no back pain, no urinary symptoms , no testicular/groin pain, no indigestion, no chest pain, no shortness of breath, + carpal pedal spasm Timing: Acute on chronic Severity: Moderate Context: Patient presents via EMS from the alf with complaints of alcohol withdrawal that started several hours prior to arrival company by bilateral hand cramping and nausea. Patient reports he has not had any alcohol in 24 hr. He has a history of alcohol withdrawal seizures. Patient also has a history of pancreatitis any complains of epigastric discomfort that is nonradiating in nature describes as sharp and cramping. Patient was admitted and discharged on 01/01/18 for pancreatitis. Modifying Factors: Numb Comment: ROS: A comprehensive 10 system review of systems is otherwise negative aside from elements mentioned in the history of present illness. MEDICAL/SURGICAL/SOCIAL HISTORY: Medical history: HTN, anxiety, PTSD, ETOH, pancreatitis Surgical history: Denies Social history: Originally from [place]. Homeless. Family history noncontributory. CONSTITUTIONAL: Untidy, polite and cooperative, young adult white male, awake and alert, no obvious distress HEENT: Atraumatic and normocephalic, PERRL, EOMI. Nares patent; no rhinorrhea; no nasal mucosal edema. Tympanic membranes clear. Oropharynx clear, no exudate and moist pink mucosa. Airway patent. No lymphadenopathy. No meningismus. Cardiovascular: Normal S1/S2, regular rate, regular rhythm, without murmur rub or gallop. PULMONARY/CHEST: Symmetrical and nontender. Clear to auscultation bilaterally. Good air movement. No accessory muscle usage. ABDOMEN: Soft, nondistended, moderate epigastric tenderness, no rebound, no guarding, no peritoneal signs, no masses or organomegaly. No CVAT. EXTREMITIES: 2/2 pulses, strength 5/5, no deformities, no clubbing, no cyanosis or edema. NEUROLOGICAL: no focal neuro deficits. GCS 15. Tremulous. SKIN: Warm and dry, no erythema. no rash. Good capillary refill. (Jocy Lopez) Constitutional: Initial Vital Signs Temperature (C) 36.6 C 01/03/18 20:43 Heart Rate 80 01/03/18 20:43 Respiratory Rate 16 01/03/18 20:43 Blood Pressure 128/81 H 01/03/18 20:43 O2 Sat (%) 94 01/03/18 20:43 O2 Delivery Mode Room Air Allergies/Adverse Reactions: gabapentin [From Neurontin] Allergy (Verified 01/03/18 20:42) Home Medications: Medication Instructions Recorded NK [No Known Home Meds] 01/03/18 Medical Decision Making - Diagnostics Imaging Results: Imaging Impressions Abdomen Ultrasound 01/03/18 22:26 Impression: Small amount of peripancreatic free fluid. No gallstones or biliary obstruction. ED Course/Re-evaluation: Vital signs reviewed and stable upon arrival. CIWA=5 upon arrival and will follow protocol for alcohol withdrawal. IV access obtained and placed on quality assurance monitor chassis. Laboratory studies, IV fluids, IV medications, oral medications ordered Patient given 2 L normal saline, IV Zofran, IV Ativan 2 mg, p.o. Librium 50 mg, IV Protonix 40 mg 2225: Labs reviewed. Lipase 1415, AST 207, ALT 352, EtOH 271 Abdominal ultrasound ordered to evaluate for appendicitis and gallbladder disease 2325: ED decision to consult for admission for acute pancreatitis; alcoholic type. Patient made NPO. Ultrasound results pending at time of consult with hospitalist, Dr. Castro. 2344: Ultrasound results posted and show Small amount of peripancreatic free fluid. No gallstones or biliary obstruction. Hospitalists updated. This patient was seen under the supervision of my secondary supervising physician. I evaluated care for this patient independently. Discussed this patient with Dr. Iraheta. (Jocy Lopez) Differential Diagnosis: Abdominal pain including but not limited to appendicitis, cholecystitis, gastritis and urinary tract infection. (Jocy Lopez) Other Provider: The patient was evaluated and managed by the Physician Third Steel Pourer. I discussed the patient's presentation and course with the midlevel provider with them and agree with the evaluation. My co-signature indicates that I have reviewed this chart and I agree with the findings and plan of care as documented. I am the secondary supervising physician. (Zonia Iraheta) - Data Points Laboratory Results: Laboratory Results 01/03/18 20:45 01/03/18 20:45 01/03/18 01/03/18 20:45 20:45 WBC 5.68 10^3/uL 10^3/uL (3.80-9.50) RBC 4.72 10^6/uL 10^6/uL (4.40-6.38) Hgb 15.5 g/dL g/dL (13.7-17.5) Hct 43.4 % % (40.0-51.0) MCV 91.9 fL fL (81.5-99.8) MCH 32.8 pg pg (27.9-34.1) MCHC 35.7 g/dL g/dL (32.4-36.7) RDW 13.3 % % (11.5-15.2) Plt Count 433 10^3/uL H 10^3/uL (150-400) MPV 9.8 fL fL (8.7-11.7) Neut % (Auto) 35.1 % L % (39.3-74.2) Lymph % (Auto) 45.8 % H % (15.0-45.0) [place] % (Auto) 17.1 % H % (4.5-13.0) Eos % (Auto) 0.7 % % (0.6-7.6) Baso % (Auto) 0.9 % % (0.3-1.7) Nucleat RBC Rel Count 0.0 % % (0.0-0.2) Absolute Neuts (auto) 2.00 10^3/uL 10^3/uL (1.70-6.50) Absolute Lymphs (auto) 2.60 10^3/uL 10^3/uL (1.00-3.00) Absolute Monos (auto) 0.97 10^3/uL H 10^3/uL (0.30-0.80) Absolute Eos (auto) 0.04 10^3/uL 10^3/uL (0.03-0.40) Absolute Basos (auto) 0.05 10^3/uL 10^3/uL (0.02-0.10) Absolute Nucleated RBC 0.00 10^3/uL 10^3/uL (0-0.01) Immature Gran % 0.4 % % (0.0-1.1) Immature Gran # 0.02 10^3/uL 10^3/uL (0.00-0.10) Sodium 141 mEq/L mEq/L (135-145) Potassium 4.8 mEq/L mEq/L (3.3-5.0) Chloride 104 mEq/L mEq/L (97-110) Carbon Dioxide 21 mEq/l L mEq/l (22-31) Anion Gap 16 mEq/L H mEq/L (6-14) BUN 12 mg/dL mg/dL (7-23) Creatinine 0.8 mg/dL mg/dL (0.7-1.3) Estimated GFR > 60 Glucose 100 mg/dL mg/dL (70-100) Calcium 10.1 mg/dL mg/dL (8.5-10.4) Total Bilirubin 0.4 mg/dL mg/dL (0.1-1.4) Conjugated Bilirubin 0.2 mg/dL mg/dL (0.0-0.5) Unconjugated Bilirubin 0.2 mg/dL mg/dL (0.0-1.1) AST 207 IU/L H IU/L (17-59) ALT 352 IU/L H IU/L (21-72) Alkaline Phosphatase 109 IU/L IU/L (38-126) Total Protein 8.7 g/dL H g/dL (6.3-8.2) Albumin 5.1 g/dL H g/dL (3.5-5.0) Lipase 1415 IU/L H IU/L (23-300) Ethyl Alcohol 271 mg/dL H mg/dL (0-10) Medications Given: Discontinued Medications Chlordiazepoxide HCl (Librium) 50 mg PO EDNOW ONE Stop: 01/03/18 20:47 Last Admin: 01/03/18 20:55 Dose: 50 mg Sodium Chloride (Ns) 1,000 mls @ 0 mls/hr IV EDNOW ONE; Wide Open PRN Reason: Protocol Stop: 01/03/18 20:47 Last Admin: 01/03/18 20:55 Dose: 1,000 mls Sodium Chloride (Ns) 1,000 mls @ 0 mls/hr IV EDNOW ONE; Wide Open PRN Reason: Protocol Stop: 01/03/18 20:47 Last Admin: 01/03/18 21:20 Dose: 1,000 mls Lorazepam (Ativan Injection) 2 mg IVP EDNOW ONE Stop: 01/03/18 20:47 Last Admin: 01/03/18 20:55 Dose: 2 mg Ondansetron HCl (Zofran Odt) 4 mg PO EDNOW ONE Stop: 01/03/18 20:47 Last Admin: 01/03/18 20:55 Dose: 4 mg Pantoprazole Sodium (Protonix) 40 mg IVP ONCE ONE Stop: 01/03/18 20:48 Last Admin: 01/03/18 21:02 Dose: 40 mg Departure - Departure Disposition: [facility] Clinical Impression: Alcohol abuse Alcohol withdrawal Qualifiers: Complication of substance-induced condition: uncomplicated Qualified Code(s): F10.230 - Alcohol dependence with withdrawal, uncomplicated Alcoholic pancreatitis Qualifiers: Chronicity: acute Acute pancreatitis complication: unspecified Qualified Code(s ): K85.20 - Alcohol induced acute pancreatitis without necrosis or infection Condition: Fair
[2018-01-03 20:53] LABS: PLATELET COUNT 433 10^3/uL (150-400)
[2018-01-03] MEDS ORDERED: PANTOPRAZOLE SODIUM 40 MG VIAL ONE (20:56)
--- NOTE | 2018-01-03 23:48 | PDGENHP ---
History and Physical - Chief Complaint Epigastric pain, nausea vomiting - History of Present Illness Patient seen in the ED prior to midnight on 01/03/2018. Source-patient provides history appears reliable. EMR was reviewed and case discussed with ED provider. HPI - pleasant 27-year-old gentleman with past medical history significant for PTSD, anxiety, HTN, alcohol dependence and history of alcoholic pancreatitis presents emergency department with complaints of 1 day history of epigastric pain and intractable nausea vomiting. Patient recently relocated from [place] and has been staying in a homeless usp. His symptoms continued to escalate and this evening he on arrived by EMS. Patient reports that after discharge she was able to stay sober for 2 days. He reports that struggled with comments made from other residents in the usp as well as was trying to deal with persistent tremor and epigastric pain and subsequently resumed drinking. Patient drinks up to 1 L of vodka on a daily basis. He was recently discharged on 01/01/2018 for acute alcoholic pancreatitis. Patient felt that he had increasing tremors after discharge with abrupt cessation of benzos and opiates. Patient also reports that he had time had thoughts of harming himself any thought that resuming alcohol consumption would be a better option than suicide. Patient currently denying any active thoughts of suicide. He reports that Librium has not helped him previously and he had has had a history of alcohol withdrawal seizures. History Information - Allergies/Home Medication List Allergies/Adverse Reactions: gabapentin [From Neurontin] Allergy (Verified 01/03/18 20:42) Home Medications: NK [No Known Home Meds] 01/03/18 [Last Taken Unknown] I have personally reviewed and updated: family history, medical history, social history, surgical history - Past Medical History Additional medical history: Bipolar disorder, PTSD, anxiety, alcohol dependence/ pancreatitis, withdrawal seizures - Surgical History Reports: no pertinent surgical hx - Family History Additional family history: Diabetes in grandparents. Grandfather with history of stroke and [place]. mother - Crohn's. etoh, bipolar, anxiet/depression - Social History Smoking Status: Current every day smoker Tobacco Use: Cigarettes (half pack per day) Alcohol Use: Heavy (up to 1 liter vodka.day) Drug Use: Marijuana (occasional), Other (denies other illicits or IVDU.) Additional social history: Patient is currently homeless. Recently relocated from [place]. Review of Systems Review of Systems: ROS: 10pt was reviewed & negative except for what was stated in HPI & below Constitutional: Reports: chills, fever. Denies: diaphoresis, recent illness EENMT: Reports: other (dry mouth) Cardiac: Reports: no symptoms Respiratory: Reports: cough (occasional with smoking history). Denies: shortness of breath Gastrointestinal: Reports: vomitting, abdominal pain (see hpi), abdominal distention, diarrhea, nausea. Denies: black stools, rectal bleeding Genitourinary: Reports: no symptoms Muscolosketal: Reports: no symptoms Skin: Reports: no symptoms Neurological: Reports: no symptoms Hematologic/Lymphatic: Reports: no symptoms Physical Exam Physical Exam: Selected Entries 01/03/18 20:43 Blood Pressure Automatic Method Heart Rate 80 Respiratory 16 Rate O2 Sat (%) 94 Temperature (C) 36.6 C Blood Pressure 128/81 H Mean Arterial 96 Pressure (MAP) O2 Delivery Room Air Mode Temperature Oral Source Temp Pulse Resp BP Pulse Ox 36.6 C 66 16 100/65 97 01/03/18 20:43 01/03/18 23:16 01/03/18 23:16 01/03/18 23:16 01/03/18 23:16 Constitutional: no apparent distress, other (Appears fatigued, acutely ill but nontoxic.) Eyes: PERRL, anicteric sclera, EOMI, No scleral injection Ears, Nose, Mouth, Throat: poor dentition (Dentition in Fair condition), dry mucous membranes, other (No nasal discharge) Cardiovascular: regular rate and rhythym, no murmur, rub, or gallop, No edema Peripheral Pulses: 1+: dorsalis-pedis (R), dorsalis-pedis (L) Respiratory: no respiratory distress, no rales or rhonchi, clear to auscultation , other (Occasional nonproductive cough) Gastrointestinal: no palpable masses, tenderness (Epigastric left upper quadrant ), distension, other (Hypoactive bowel sounds), No guarding, No rebound Genitourinary: no bladder tenderness, No colon in urethra Skin: warm Musculoskeletal: full muscle strength, other (Moves all extremities while lying on gurney), No generalized weakness Neurologic: AAOx3, other (Grossly nonfocal minimal tremor) Psychiatric: not encephalopathic, thought process linear, depressed, flat affect , No suicidal ideation (Patient denies any current suicidal ideation but does endorse that he had these thoughts earlier. He has no active plans to harm himself.), No poor insight, No poor judgement, No poor memory Lab Data & Imaging Review 01/03/18 20:45 01/03/18 20:45 WBC 5.68 10^3/uL (3.80-9.50) 01/03/18 20:45 RBC 4.72 10^6/uL (4.40-6.38) 01/03/18 20:45 Hgb 15.5 g/dL (13.7-17.5) 01/03/18 20:45 Hct 43.4 % (40.0-51.0) 01/03/18 20:45 MCV 91.9 fL (81.5-99.8) 01/03/18 20:45 MCH 32.8 pg (27.9-34.1) 01/03/18 20:45 MCHC 35.7 g/dL (32.4-36.7) 01/03/18 20:45 RDW 13.3 % (11.5-15.2) 01/03/18 20:45 Plt Count 433 10^3/uL (150-400) H 01/03/18 20:45 MPV 9.8 fL (8.7-11.7) 01/03/18 20:45 Neut % (Auto) 35.1 % (39.3-74.2) L 01/03/18 20:45 Lymph % (Auto) 45.8 % (15.0-45.0) H 01/03/18 20:45 [place] % (Auto) 17.1 % (4.5-13.0) H 01/03/18 20:45 Eos % (Auto) 0.7 % (0.6-7.6) 01/03/18 20:45 Baso % (Auto) 0.9 % (0.3-1.7) 01/03/18 20:45 Nucleat RBC Rel Count 0.0 % (0.0-0.2) 01/03/18 20:45 Absolute Neuts (auto) 2.00 10^3/uL (1.70-6.50) 01/03/18 20:45 Absolute Lymphs (auto) 2.60 10^3/uL (1.00-3.00) 01/03/18 20:45 Absolute Monos (auto) 0.97 10^3/uL (0.30-0.80) H 01/03/18 20:45 Absolute Eos (auto) 0.04 10^3/uL (0.03-0.40) 01/03/18 20:45 Absolute Basos (auto) 0.05 10^3/uL (0.02-0.10) 01/03/18 20:45 Absolute Nucleated RBC 0.00 10^3/uL (0-0.01) 01/03/18 20:45 Immature Gran % 0.4 % (0.0-1.1) 01/03/18 20:45 Immature Gran # 0.02 10^3/uL (0.00-0.10) 01/03/18 20:45 Sodium 141 mEq/L (135-145) 01/03/18 20:45 Potassium 4.8 mEq/L (3.3-5.0) 01/03/18 20:45 Chloride 104 mEq/L (97-110) 01/03/18 20:45 Carbon Dioxide 21 mEq/l (22-31) L 01/03/18 20:45 Anion Gap 16 mEq/L (6-14) H 01/03/18 20:45 BUN 12 mg/dL (7-23) 01/03/18 20:45 Creatinine 0.8 mg/dL (0.7-1.3) 01/03/18 20:45 Estimated GFR > 60 01/03/18 20:45 Glucose 100 mg/dL (70-100) 01/03/18 20:45 Calcium 10.1 mg/dL (8.5-10.4) 01/03/18 20:45 Total Bilirubin 0.4 mg/dL (0.1-1.4) 01/03/18 20:45 Conjugated Bilirubin 0.2 mg/dL (0.0-0.5) 01/03/18 20:45 Unconjugated Bilirubin 0.2 mg/dL (0.0-1.1) 01/03/18 20:45 AST 207 IU/L (17-59) H 01/03/18 20:45 ALT 352 IU/L (21-72) H 01/03/18 20:45 Alkaline Phosphatase 109 IU/L (38-126) 01/03/18 20:45 Total Protein 8.7 g/dL (6.3-8.2) H 01/03/18 20:45 Albumin 5.1 g/dL (3.5-5.0) H 01/03/18 20:45 Lipase 1415 IU/L (23-300) H 01/03/18 20:45 Ethyl Alcohol 271 mg/dL (0-10) H 01/03/18 20:45 Imaging Review: Right Upper Quadrant Abdominal Sonogram History: Possible gallstones, epigastric pain, elevated lipase, pancreatitis Comparison: CT 12/27/17 Findings:The is a small amount of fluid adjacent to the pancreatic head, increased since the CT, and consistent with pancreatitis. There is no pseudocyst formation or pancreatic ductal dilatation. There are no gallstones, gallbladder wall thickening or pericholecystic fluid. The liver, right kidney and common duct are normal. The visualized aorta and IVC are normal. Impression: Small amount of peripancreatic free fluid. No gallstones or biliary obstruction. Dictated By: Nakul Adair MD EKG additional interpertation: tele monitor - NSR 80s. Assessment & Plan Assessment: 27-year-old gentleman with history of alcohol dependence, alcohol pancreatitis and withdrawal seizures, PTSD and anxiety who presents emergency department today with complaints of 1 day history of epigastric left upper quadrant abdominal pain intractable nausea vomiting. #Alcoholic pancreatitis - patient with elevated lipase and epigastric pain. To be made NPO. IV Ativan and Dilaudid for pain p.r.n. Monitor lipase #Alcoholic hepatitis - patient recently drank earlier today 12 hr prior to arrival. Will monitor LFTs. #Nausea vomiting - Zofran and Phenergan available p.r.n. #Anion gap metabolic acidosis - likely related to her alcoholic ketosis. Monitor BMP in the morning. Continue IV fluid hydration. #Abdominal pain - Dilaudid p.r.n. IV discussed with the patient consideration to use a lower dose on minimal as needed for his acute pancreatitis pains that he is not having to risk withdrawal at time of discharge as he will not be discharged with any narcotics. #Alcohol dependence - patient reports that he desires to enter into a treatment program for his alcohol dependence as well as for treatment of this is mental health issues. Case management consultation as well as consideration for mental health eval. Patient currently denies any active suicidal ideation but does endorse that he had these thoughts earlier today. Chronic medical issues #Anxiety and depression - Ativan available p.r.n.. Case Management consult as noted above. #PTSD FEN - IV fluids overnight. Electrolyte monitoring replacement if needed. NPO status. PPX-SCDs. Patient overall low risk for DVT. Encourage mobilization. If patient should have extended stay consider Lovenox. COR - full. Disposition-patient admitted inpatient status on the medical floor. Given transaminitis and elevated LFTs due to pancreatitis anticipate greater than 2 midnight stay.
[2018-01-04] MEDS ORDERED: PROMETHAZINE HCL 25 MG/ML INJ IVP PRN (00:03)
[2018-01-04] MEDS ORDERED: ONDANSETRON DISINTEGRATING 4 MG TAB PO PRN (00:03)
[2018-01-04] MEDS ORDERED: ONDANSETRON 4 MG/2 ML VIAL IVP PRN (00:03)
[2018-01-04] MEDS: LORazepam 2 MG/ML INJ IVP PRN ×6 (01:07→22:36)
[2018-01-04] MEDS: HYDROmorphONE/DILAUDID 1 MG/ML INJ IVP PRN ×2 (01:17→08:43)
[2018-01-04] MEDS: NS 1,000 ML IV SCH ×2 (01:17→15:01)
[2018-01-04] MEDS: NICOTINE 21 MG/24 HR PATCH TD SCH (08:49)
[2018-01-04] MEDS: THIAMINE HCL 500 MG in NS 100 ML IV SCH (08:56)
[2018-01-04] MEDS: PANTOPRAZOLE SODIUM 40 MG VIAL IVP SCH (08:56)
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
--- NOTE | 2018-01-04 11:34 | HOSPPROG ---
Hospitalist Progress Note Assessment/Plan: 27-year-old gentleman with history of alcohol dependence, alcohol pancreatitis and withdrawal seizures, PTSD and anxiety who presents emergency department today with complaints of 1 day history of epigastric left upper quadrant abdominal pain intractable nausea vomiting. He was discharged a few days ago- was able to abstain from alcohol x 2 days, but relapsed. *Alcoholic pancreatitis -supportive care w IV hydration and pain medications -he is hungry and has no nausea, no emesis, no pain w palp-trial of cl liquids, dc IV pain medications, trial of oral pain medications *epigastric pain -due to the above, he is on a PPI -informed he will not be dc on narcotics *Alcoholic hepatitis -LFT's trending down *Nausea vomiting -none further *Anion gap metabolic acidosis -related to her alcoholic ketosis. *Alcohol dependence -he had been sober x 8 months and then his mom 6 months ago -started drinking actively again . *Anxiety,PTSD and depression - Ativan p.r.n. -spoke w CARLA and they will see this evening or tomorrow -he had made SI prior to coming in but is not during my interview *homelessness -family is from the [place] area *Plan: continue supportive care, Tim is hungry and told him if he isn't having pain, we will slowly advance his diet. Spoke w ELANA and he was given resources to get f/u care on his last admission. He said he doesn't have cell service. Encouraged him to call these resources today while in the hospital. TLC will see - I am thinking he may be ready for dc this weekend, if not would get Melina Herrera to see Sunday. Subjective: Tim said his abdomen hurts but he wants to eat. Objective: Vital Signs Temp Pulse Resp BP Pulse Ox 36.8 C 80 20 108/63 94 01/04/18 07:55 01/04/18 07:55 01/04/18 07:55 01/04/18 07:55 01/04/18 07:55 Laboratory Results 01/04/18 04:20 01/03/18 01/04/18 01/05/18 05:59 05:59 05:59 Intake Total 594 Balance 594 - Physical Exam Constitutional: uncomfortable Eyes: PERRL Ears, Nose, Mouth, Throat: hearing normal Cardiovascular: regular rate and rhythym Respiratory: no respiratory distress Gastrointestinal: tenderness (slight in epigastric area with palp) Skin: warm, normal color Musculoskeletal: full muscle strength Neurologic: AAOx3 Psychiatric: interacting appropriately, not encephalopathic ICD10 Worksheet Patient Problems: Problems Problem Status Onset Alcohol abuse Acute Alcohol withdrawal Acute Alcoholic pancreatitis Acute Acute alcoholic pancreatitis Acute
--- NOTE | 2018-01-04 12:33 | PDMN ---
Medical Necessity Medical necessity: Pt meets IP criteria per MD order and MCG M-250; ext los > 2 mn, eval and tx for alcoholic pancreatitis with acute abdominal pain, lipase of 1415, inability to maintain PO hydration; requiring NPO status, IV pain management, IVF, IV protonix, CIWA protocol, f/u labs; Comorbidities alcoholic hepatitis. Per h&P and order 01/03/2018.
--- NOTE | 2018-01-04 16:20 | ASMTCMCOM ---
ELANA Note CM Note Notes: Went to meet with pt but he was sleeping. Pt was admitted for panreatitis secondary to etoh. He was here a few days ago for same thing. Please refer to EALNA note on previous dc, pt was given resources but did not follow up, he stayed at longterm but then left and started drinking. He was sober for about 8 months until his mother recently . Consult was put in for Melina Velazquez, she will be here on Sunday if pt is still here, CM left message on her vm. DC Plan: Independent Date Signed: 01/04/2018 04:17 PM Electronically Signed By:Melina Tracy RN
[2018-01-04] MEDS ORDERED: PANTOPRAZOLE SODIUM 40 MG VIAL IVP ONE (20:47)
[2018-01-04] MEDS: oxyCODONE IR 5 MG TAB PO PRN (22:35)
[2018-01-05] MEDS: ACETAMINOPHEN 325 MG TAB PO PRN (01:40)
[2018-01-05] MEDS: LORazepam 2 MG/ML INJ IVP PRN ×5 (01:40→20:29)
[2018-01-05] MEDS: oxyCODONE IR 5 MG TAB PO PRN ×4 (06:15→21:51)
[2018-01-05] MEDS: NICOTINE 21 MG/24 HR PATCH TD SCH (08:25)
[2018-01-05] MEDS: PANTOPRAZOLE SODIUM 40 MG VIAL IVP SCH (08:26)
[2018-01-05] MEDS: THIAMINE HCL 500 MG in NS 100 ML IV SCH (08:26)
[2018-01-05] MEDS: NS 1,000 ML IV SCH ×2 (08:40→20:29)
--- NOTE | 2018-01-05 11:55 | HOSPPROG ---
Hospitalist Progress Note Assessment/Plan: 27-year-old gentleman with history of alcohol dependence, alcohol pancreatitis and withdrawal seizures, PTSD and anxiety who presents emergency department today with complaints of 1 day history of epigastric left upper quadrant abdominal pain intractable nausea vomiting. He was discharged a few days ago- was able to abstain from alcohol x 2 days, but relapsed. First encounter, chart reviewed. *Alcoholic pancreatitis -supportive care w IV hydration and pain medications -he is hungry and has no nausea, no emesis, no pain w palp-trial of cl liquids, dc IV pain medications, trial of oral pain medications -eating some today *epigastric pain -due to the above, he is on a PPI -informed he will not be dc on narcotics -better but still present *Alcoholic hepatitis -LFT's trending down *Nausea vomiting -none further *Anion gap metabolic acidosis -related to alcoholic ketosis. *Alcohol dependence -he had been sober x 8 months and then his mom 6 months ago -started drinking actively again *Anxiety,PTSD and depression - Ativan p.r.n. - resources *homelessness -family is from the [facility] *Plan: continue supportive care, tolerating some food. Still having tremors Spoke w CM and he was given resources to get f/u care on his last admission. Likely DC in am but if not would get Melina Herrera to see Sunday. Subjective: Still having tremors and feels out of it. No pain. Objective: Vital Signs Temp Pulse Resp BP Pulse Ox 36.8 C 70 16 119/78 99 01/05/18 08:00 01/05/18 08:00 01/05/18 08:00 01/05/18 08:00 01/05/18 08:00 Laboratory Results 01/05/18 04:29 01/04/18 01/05/18 01/06/18 05:59 05:59 05:59 Intake Total 1814 300 Output Total 1900 Balance -86 300 - Physical Exam Constitutional: appears nourished, chronically ill appearing, uncomfortable, unkempt Eyes: PERRL, anicteric sclera, EOMI Ears, Nose, Mouth, Throat: moist mucous membranes, hearing normal, ears appear normal Cardiovascular: tachycardia, No JVD, No edema Respiratory: no respiratory distress, no rales or rhonchi, reduced air movement Gastrointestinal: normoactive bowel sounds, tenderness, distension, No ascites Skin: warm, normal color, No mottled Musculoskeletal: normal joint ROM, no joint effusions, generalized weakness Neurologic: AAOx3 Psychiatric: not anxious, not encephalopathic, depressed, poor judgement ICD10 Worksheet Patient Problems: Problems Problem Status Onset Acute alcoholic pancreatitis Acute Alcohol withdrawal Acute Alcohol abuse Acute Alcoholic pancreatitis Acute
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
--- NOTE | 2018-01-05 19:27 | ASMTCMCOM ---
CM Note CM Note Notes: Reviewed chart regarding discharge plan of care, pt's progress. Asked to see pt by DAVID Castillo TLC regarding resources for housing, community tables, substance abuse and the like. Met with pt. 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 Pt seems very motivated to get help. Pt provided with [facility], [facility], Communtiy [facility], [facility], [facility], [facility], [facility] pamphlets. Pt given information on the [facility], a [facility] brochure, the number for [facility], the [facility], and the [facility] AA meeting schedule. Pt also provided with an alcohol resource packet. Pt encouraged to start with [facility] and [facility]. Pt also encouraged to find a PCP and a therapist with [facility]. Pt grateful for resources and additional support. Discharge plan remains unclear. Anticipate pt will likely discharge independently back to the streets when stable. Pt to be seen by Melina Herrera on Sunday01/07/18. CM available for any further issues or concerns. Discharge Plan: Independent Date Signed: 01/05/2018 07:26 PM Electronically Signed By:Radha Magaña RN
[2018-01-06] MEDS: oxyCODONE IR 5 MG TAB PO PRN ×5 (01:55→19:49)
[2018-01-06] MEDS: LORazepam 2 MG/ML INJ IVP PRN ×5 (01:55→19:49)
[2018-01-06] MEDS: THIAMINE HCL 500 MG in NS 100 ML IV SCH (08:23)
[2018-01-06] MEDS: PANTOPRAZOLE SODIUM 40 MG VIAL IVP SCH (08:23)
[2018-01-06] MEDS: NICOTINE 21 MG/24 HR PATCH TD SCH (08:23)
--- NOTE | 2018-01-06 11:36 | HOSPPROG ---
Hospitalist Progress Note Assessment/Plan: 27-year-old gentleman with history of alcohol dependence, alcohol pancreatitis and withdrawal seizures, PTSD and anxiety who presents emergency department today with complaints of 1 day history of epigastric left upper quadrant abdominal pain intractable nausea vomiting. He was discharged a few days ago- was able to abstain from alcohol x 2 days, but relapsed. *Alcoholic pancreatitis -supportive care, DC IV fluid -he is hungry and has no nausea, no emesis, no pain w palp-trial of cl liquids, dc IV pain medications, trial of oral pain medications -eating some today *epigastric pain -due to the above, he is on a PPI -informed he will not be dc on narcotics -better but still present *Alcoholic hepatitis -LFT's trending down *Nausea vomiting -none further *Anion gap metabolic acidosis -related to alcoholic ketosis. *Alcohol dependence -he had been sober x 8 months and then his mom 6 months ago -started drinking actively again *Anxiety,PTSD and depression - Ativan p.r.n. - resources *homelessness -family is from the [facility] *Plan: continue supportive care, tolerating some food. Still having tremors Spoke w CM and he was given resources to get f/u care on his last admission. Likely DC in am TLC eval done Subjective: Still feeling terrible. Tremors and tayler. Anxious. Objective: Vital Signs Temp Pulse Resp BP Pulse Ox 37.8 C 89 16 115/72 94 01/06/18 11:07 01/06/18 11:07 01/06/18 11:07 01/06/18 11:07 01/06/18 11:07 Laboratory Results 01/05/18 04:29 01/05/18 01/06/18 01/07/18 05:59 05:59 05:59 Intake Total 1814 2550 Output Total 1900 4050 Balance -86 -1500 - Physical Exam Constitutional: appears nourished, uncomfortable Eyes: PERRL, anicteric sclera Ears, Nose, Mouth, Throat: moist mucous membranes, hearing normal Cardiovascular: No JVD, No edema Respiratory: no respiratory distress, reduced air movement Gastrointestinal: distension, No ascites, No guarding Skin: warm, normal color Musculoskeletal: generalized weakness, No pain with ROM Neurologic: AAOx3 Psychiatric: not encephalopathic, anxious, poor insight, poor judgement ICD10 Worksheet Patient Problems: Problems Problem Status Onset Acute alcoholic pancreatitis Acute Alcohol withdrawal Acute Alcohol abuse Acute Alcoholic pancreatitis Acute
[2018-01-06] MEDS: ACETAMINOPHEN 325 MG TAB PO PRN (23:05)
[2018-01-07] MEDS: oxyCODONE IR 5 MG TAB PO PRN ×6 (00:05→21:00)
[2018-01-07] MEDS: THIAMINE HCL 100 MG TAB PO SCH ×2 (00:06→08:14)
[2018-01-07] MEDS: LORazepam 2 MG/ML INJ IVP PRN ×5 (00:06→16:43)
[2018-01-07] MEDS: ACETAMINOPHEN 325 MG TAB PO PRN ×2 (03:09→12:03)
[2018-01-07] MEDS ORDERED: KETOROLAC 15 MG/1 ML SDV IVP ONE (04:05)
[2018-01-07 05:37] LABS: PLATELET COUNT 377 10^3/uL (150-400)
[2018-01-07] MEDS: NICOTINE 21 MG/24 HR PATCH TD SCH (08:13)
[2018-01-07] MEDS: PANTOPRAZOLE SODIUM 40 MG TAB PO SCH (08:21)
--- NOTE | 2018-01-07 14:37 | HOSPPROG ---
Hospitalist Progress Note Assessment/Plan: 27-year-old gentleman with history of alcohol dependence, alcohol pancreatitis and withdrawal seizures, PTSD and anxiety who presents emergency department today with complaints of 1 day history of epigastric left upper quadrant abdominal pain intractable nausea vomiting. He was discharged a few days ago- was able to abstain from alcohol x 2 days, but relapsed. *Alcoholic pancreatitis -supportive care w IV hydration and pain medications *fevers -chest x ray shows nothing acute -will get a CT of abdomen and pelvis to evaluate for necrosis of the pancreas *epigastric pain -due to the above, he is on a PPI -informed he will not be dc on narcotics *Alcoholic hepatitis -LFT's trending down *Nausea vomiting -none further *Anion gap metabolic acidosis -related to her alcoholic ketosis. *Alcohol dependence -he had been sober x 8 months and then his mom 6 months ago -started drinking actively again -he says he is withdrawing and requiring Ativan *Anxiety,PTSD and depression - Ativan p.r.n. -spoke w TLC and they will see this evening or tomorrow *homelessness -family is from the [place] area *Plan: CT of abdomen, asked Melina Herrera to see. I am concerned he is drug seeking with the benzodiazepines. Subjective: Tim said he is withdrawing and showing me his hands are shaking. Objective: Vital Signs Temp Pulse Resp BP Pulse Ox 37.2 C 90 16 130/73 H 94 01/07/18 12:56 01/07/18 12:56 01/07/18 12:56 01/07/18 11:56 01/07/18 12:56 Laboratory Results 01/07/18 05:25 01/07/18 05:25 01/06/18 01/07/18 01/08/18 05:59 05:59 05:59 Intake Total 2550 1000 Output Total 4050 3950 Balance -1500 -2950 - Physical Exam Constitutional: no apparent distress, appears nourished Eyes: PERRL Ears, Nose, Mouth, Throat: hearing normal Cardiovascular: regular rate and rhythym, no murmur, rub, or gallop Respiratory: no respiratory distress Gastrointestinal: normoactive bowel sounds, tenderness (epigastric area) Skin: warm Musculoskeletal: full muscle strength Neurologic: AAOx3 Psychiatric: interacting appropriately ICD10 Worksheet Patient Problems: Problems Problem Status Onset Alcohol abuse Acute Alcohol withdrawal Acute Alcoholic pancreatitis Acute Acute alcoholic pancreatitis Acute
[2018-01-07] MEDS ORDERED: IOPAMIDOL (ISOVUE-300) 100 ML BTL ONE (15:46)
[2018-01-07] MEDS ORDERED: BISACODYL 10 MG SUPP PR PRN (17:46)
[2018-01-07] MEDS ORDERED: MAGNESIUM HYDROXIDE 30 ML UDCUP PO PRN (17:46)
[2018-01-07] MEDS ORDERED: LACTULOSE 20 GM/30 ML UDCUP PO PRN (17:46)
[2018-01-07] MEDS: POLYETHYLENE GLYCOL 3350 17 GM PKT PO PRN (18:08)
[2018-01-07] MEDS: SENNOSIDES/DOCUSATE SODIUM TAB PO SCH (20:08)
[2018-01-08] MEDS: oxyCODONE IR 5 MG TAB PO PRN ×5 (01:54→23:53)
[2018-01-08] MEDS: LORazepam 0.5 MG TAB PO PRN ×4 (01:54→23:04)
[2018-01-08] MEDS: KETOROLAC 15 MG/1 ML SDV IVP PRN (04:40)
[2018-01-08] MEDS: ceFAZolin 2 GM/DEXTROSE 100 ML IV SCH ×3 (06:35→21:59)
[2018-01-08] MEDS: THIAMINE HCL 100 MG TAB PO SCH (07:39)
[2018-01-08] MEDS: PANTOPRAZOLE SODIUM 40 MG TAB PO SCH ×2 (07:39→19:58)
[2018-01-08] MEDS: SENNOSIDES/DOCUSATE SODIUM TAB PO SCH ×2 (07:40→19:58)
[2018-01-08] MEDS: POLYETHYLENE GLYCOL 3350 17 GM PKT PO PRN (07:40)
[2018-01-08] MEDS: NICOTINE 21 MG/24 HR PATCH TD SCH (07:40)
--- NOTE | 2018-01-08 11:12 | HOSPPROG ---
Hospitalist Progress Note Assessment/Plan: 27-year-old gentleman with history of alcohol dependence, alcohol pancreatitis and withdrawal seizures, PTSD and anxiety who presents emergency department today with complaints of 1 day history of epigastric left upper quadrant abdominal pain intractable nausea vomiting. He was discharged a few days ago- was able to abstain from alcohol x 2 days, but relapsed. *Alcoholic pancreatitis -supportive care w IV hydration and pain medications -reviewed CT scan which shows resolution of the pancreatitis *fevers -chest x ray shows nothing acute -CT doesn't show etiology *+ blood cx: MSSA (one blood cx) -Cefazolin *right forearm w swelling -Ultrasound is negative for dvt, abscess *epigastric pain -due to the above, he is on a PPI -informed he will not be dc on narcotics -increased PPI bid, prn Maalox *Alcoholic hepatitis -LFT's trending down *Nausea vomiting -none further *Drug seeking behavior -asking for iv Ativan and requesting pain medications -trial of non narcotics *Anion gap metabolic acidosis -related to her alcoholic ketosis. *Alcohol dependence -he had been sober x 8 months and then his mom 6 months ago -started drinking actively again -he says he is withdrawing and requiring Ativan -dc CIWA *Anxiety,PTSD and depression - Ativan p.r.n. -Melina talking w Tim about Prazosin to help him w nightmares (doesn't want it as of yet) *homelessness -family is from the [place] area *Plan: Dr Bruce to see. Melina Herrera evaluated the patient, appreciate her seeing Tim. Subjective: Tim is c/o right forearm pain, headache, overall not feeling well. Objective: Vital Signs Temp Pulse Resp BP Pulse Ox 36.7 C 77 16 101/62 95 01/08/18 07:33 01/08/18 07:33 01/08/18 07:33 01/08/18 07:33 01/08/18 07:33 Microbiology 01/07/18 05:25 Blood Panel (PCR) - Final Blood S.aureus Methicillin Suscept. Laboratory Results 01/07/18 05:25 01/07/18 05:25 01/07/18 01/08/18 01/09/18 05:59 05:59 05:59 Intake Total 1000 500 Output Total 3950 Balance -2950 500 - Physical Exam Constitutional: uncomfortable Eyes: PERRL Ears, Nose, Mouth, Throat: hearing normal Cardiovascular: regular rate and rhythym Respiratory: no respiratory distress Gastrointestinal: normoactive bowel sounds Skin: warm, other (right forearm red, warm) Neurologic: AAOx3 Psychiatric: interacting appropriately, flat affect ICD10 Worksheet Patient Problems: Problems Problem Status Onset Alcohol abuse Acute Alcohol withdrawal Acute Alcoholic pancreatitis Acute Acute alcoholic pancreatitis Acute
[2018-01-08] MEDS ORDERED: MAG HYDROX/AL HYDROX/SIMETH 30 ML UDCUP PO PRN (11:41)
--- NOTE | 2018-01-08 12:29 | ASMTCMCOM ---
CM Note CM Note Notes: Pts case reviewed. Melina Herrera met w/ pt and gave him educational material and recommended Prazosin to help w/ nightmares. Pt will d/c independent when medically stable. CM available w/ assistance to reserve a senior living bed. CM available for changes. Plan: Independent Date Signed: 01/08/2018 12:28 PM Electronically Signed By:JUNIE Howell
[2018-01-08] MEDS: ACETAMINOPHEN 325 MG TAB PO PRN (13:55)
[2018-01-08] MEDS ORDERED: hydrOXYzine HCL 25 MG TAB PO PRN (23:25)
--- NOTE | 2018-01-09 03:19 | GCON ---
INFECTIOUS DISEASE CONSULTATION DATE OF CONSULTATION: 01/08/2018 REFERRING PHYSICIAN: Irma Castellanos NP REASON FOR CONSULTATION: MSSA bacteremia. HISTORY OF PRESENT ILLNESS: 27-year-old male with a past medical history of alcohol abuse, who was free of alcohol for a period time until recent of his 43-year-old mother, who was admitted to the hospital on 01/03/2018, for abdominal pain, nausea, vomiting attributed to pancreatitis. The patient was generally improving over the hospital course until he spiked a fever on the at 2200. Subsequently, blood cultures were collected that morning, and one of two ended up growing MSSA. Patient continued to have a daily fever since initial onset as above. In addition, it was noted that patient's right arm was swollen and erythematous, and patient underwent an ultrasound of this arm, which showed right arm superficial thrombophlebitis. Patient was started on IV Ancef today, and patient already notes some improvement of his right arm. PAST MEDICAL HISTORY: Hypertension, anxiety, PTSD, alcoholism, pancreatitis. SURGICAL HISTORY: Negative. SOCIAL HISTORY: He is originally from [place], came to [place] 3 months ago. He is currently homeless. FAMILY HISTORY: His mother had Crohn disease. He is not in touch with his father but is reportedly an alcoholic. ALLERGIES: Gabapentin. MEDICATIONS: Cefazolin 2 g IV q.8. No anticoagulants or steroids. REVIEW OF SYSTEMS: A complete 10-point review of systems was performed and is negative, except as mentioned in the HPI. Patient does admit to improving abdominal pain and a desire for increased diet allowances. PHYSICAL EXAM: VITAL SIGNS: Blood pressure 101/60, heart rate 83, respiratory rate 16, saturation 94% on room air, temperature 36.8, T-max 39.2. GENERAL: This is a pleasant young male sitting up in no acute distress. HEENT: Fair dentition. Moist mucous membranes. No oral exudates or ulcers. No conjunctival hemorrhages. NECK: Supple. CARDIOVASCULAR: Regular rate. No murmurs. CHEST: Clear to auscultation bilaterally. ABDOMEN: Soft, nontender. Bowel sounds are present. EXTREMITIES: No clubbing, cyanosis, or edema of the lower extremities. No peripheral stigmata of endocarditis. The patient does have a moderately swollen right arm that is erythematous and with a palpable thrombus on the lateral aspect of his forearm. No fluctuance is appreciated. His pulses are 2+. LABORATORY: 01/07/2018, white count 11.6, hematocrit 37, platelets of 377. Creatinine 1.0, AST 64, ALT 182. This is down from AST and ALTs in the 200s and 300s respectively. IMAGING: CT abdomen was performed 01/07 that shows resolution of pancreatitis, and no pancreatic pseudocysts. Doppler of his arm as per HPI. ASSESSMENT AND PLAN: This is a 27-year-old male with alcoholism admitted for management of pancreatitis. His course is complicated by right arm superficial thrombophlebitis, cellulitis, and low grade methicillin-sensitive Staphylococcus aureus bacteremia. The source related to his right upper extremity, likely a peripheral IV. 1. Repeat blood cultures tomorrow to assess for clearance of bacteremia. If persistent bacteremia, may have to consider surgical consult to evaluate superficial thrombophlebitis and further evaluation for secondary effects of bacteremia such as endocarditis. 2. Duration of therapy: 10-14 days of intravenous therapy. Discussed potential modalities, that is, staying in-house versus coming to the infusion center with a new peripheral intravenous every day. Discharge is difficult as patient does not have transportation to return to the hospital. 3. Mild hepatitis at admission likely due to alcohol use. Overall improving. 4. Will repeat standard labs tomorrow morning with blood cultures. 5. Hold off on placement of peripherally inserted central catheter line for now until we establish his blood cultures are clear. 6. Screen viral hepatitis and HIV Thank you for this consultation. Will continue to see the patient on a daily basis. /[id number]/MODL MTDD
[2018-01-09] MEDS: KETOROLAC 15 MG/1 ML SDV IVP PRN (03:21)
[2018-01-09] MEDS: oxyCODONE IR 5 MG TAB PO PRN ×5 (03:52→21:28)
[2018-01-09] MEDS: ACETAMINOPHEN 325 MG TAB PO PRN (03:57)
[2018-01-09 05:30] LABS: PLATELET COUNT 396 10^3/uL (150-400)
[2018-01-09] MEDS: ceFAZolin 2 GM/DEXTROSE 100 ML IV SCH ×3 (05:45→21:17)
[2018-01-09] MEDS: SENNOSIDES/DOCUSATE SODIUM TAB PO SCH ×2 (08:54→22:17)
[2018-01-09] MEDS: PANTOPRAZOLE SODIUM 40 MG TAB PO SCH ×2 (08:54→21:17)
[2018-01-09] MEDS: THIAMINE HCL 100 MG TAB PO SCH (08:55)
[2018-01-09] MEDS: NICOTINE 21 MG/24 HR PATCH TD SCH (08:57)
--- NOTE | 2018-01-09 10:13 | PCMIDPN ---
Assessment/Plan: # Superficial septic thrombophlebitis related to peripheral IV with low-grade MSSA bacteremia. Still with significant inflammation and possible fluctuance over thrombosed vein right forearm but overall erythema of the forearm is improved. Still febrile overnight --blood cultures repeated this a.m. to establish clearance --continue cefazolin --may have to consider reimaging right forearm to evaluate for evolving abscess associated with vein. Discussed with patient the occasional need for surgical revision of vein for cure --elevate right upper extremity, avoid IV placement right upper extremity --discussed possible PICC line if lose IV access # Elevated LFTs: Continued gradual improvement, suspect related to alcohol. Screen hepatitis, HIV Medications Ancef 2 g IV Q 8, # 1 Microbiology 01/07 blood cultures (03/20) MSSA 01/09 blood cultures: Pending Subjective: Patient still complaining of right arm pain. Difficulty sleeping last night. Objective: Vital Signs Temp Pulse Resp BP Pulse Ox 36.4 C 63 16 113/88 H 97 01/09/18 08:00 01/09/18 08:00 01/09/18 08:00 01/09/18 08:00 01/09/18 08:00 Microbiology 01/07/18 05:25 Blood Panel (PCR) - Final Blood S.aureus Methicillin Suscept. Laboratory Results 01/09/18 04:40 01/09/18 04:40 01/08/18 01/09/18 01/10/18 05:59 05:59 05:59 Intake Total 500 4150 Output Total 800 Balance 500 3350 - Physical Exam General Appearance: alert, no apparent distress Respiratory: lungs clear, No accessory muscle use Neck: supple Cardiac/Chest: regular rate, rhythm Extremities: swelling (Right upper extremity with palpable cord medial forearm with questionable fluctuance. Overall intensity of erythema over the entire forearm is decreased but remains localized over thrombosed vein. Erythema also associated with failed IV on his right hand) Skin: No rash Neuro/Psych: alert, normal mood/affect, oriented x 3 - Time Spent With Patient Time Spent with Patient: greater than 35 minutes (Care coordinated with hospitalist) Time Spent with Patient: Greater than 35 minutes spent on this patients care, greater than 50% of time spent counseling, educating, and coordinating care regarding the above mentioned plan. ICD10 Worksheet Patient Problems: Problems Problem Status Onset Alcohol abuse Acute Alcohol withdrawal Acute Alcoholic pancreatitis Acute Acute alcoholic pancreatitis Acute
[2018-01-09] MEDS: LORazepam 0.5 MG TAB PO PRN ×2 (13:58→23:27)
--- NOTE | 2018-01-09 16:51 | HOSPPROG ---
Hospitalist Progress Note Assessment/Plan: 27-year-old gentleman with history of alcohol dependence, alcohol pancreatitis and withdrawal seizures, PTSD and anxiety who presents emergency department today with complaints of 1 day history of epigastric left upper quadrant abdominal pain intractable nausea vomiting. He was discharged a few days ago- was able to abstain from alcohol x 2 days, but relapsed. # Superficial septic thrombophlebitis related to peripheral IV with low-grade MSSA bacteremia. -Still with significant inflammation -reviewed with Dr Bruce -possible fluctuance over thrombosed vein right forearm but overall erythema of the forearm is improved. -Still febrile overnight -blood cultures repeated this a.m. to establish clearance -continue cefazolin -may have to consider reimaging right forearm to evaluate for evolving abscess associated with vein -elevate right upper extremity, avoid IV placement right upper extremity -discussed possible PICC line if lose IV access # Elevated LFTs: -Continued gradual improvement, suspect related to alcohol. -Screen hepatitis, HIV *Alcoholic pancreatitis -supportive care w IV hydration and pain medications -CT scan which shows resolution of the pancreatitis *fevers -related to thrombophlebitis *+ blood cx: MSSA (one blood cx) -Cefazolin *epigastric pain -due to the above, he is on a PPI -informed he will not be dc on narcotics -increased PPI bid, prn Maalox *Nausea vomiting -none further *Drug seeking behavior -asking for iv Ativan and requesting pain medications -trial of non narcotics *Anion gap metabolic acidosis -related to her alcoholic ketosis. *Alcohol dependence -he had been sober x 8 months and then his mom 6 months ago -started drinking actively again -he says he is withdrawing and requiring Ativan -dc CIWA *Anxiety,PTSD and depression - -start prazosin -Ativan p.r.n. -Melina talking w Tim about Prazosin to help him w nightmares *homelessness -family is from the [place] area *Plan: Continue supportive care -watch arm -cont iv abx Medications Ancef 2 g IV Q 8, # 1 Subjective: Feeling ill still. Anxious about being sick. Objective: Vital Signs Temp Pulse Resp BP Pulse Ox 36.8 C 76 16 114/78 96 01/09/18 15:10 01/09/18 15:10 01/09/18 15:10 01/09/18 15:10 10/24/18 15:10 Microbiology 01/07/18 05:25 Blood Panel (PCR) - Final Blood S.aureus Methicillin Suscept. Laboratory Results 01/09/18 04:40 01/09/18 04:40 01/08/18 01/09/18 01/10/18 05:59 05:59 05:59 Intake Total 500 4150 Output Total 800 Balance 500 3350 - Physical Exam Constitutional: appears nourished, not in pain, uncomfortable Eyes: PERRL, anicteric sclera, EOMI Ears, Nose, Mouth, Throat: moist mucous membranes, hearing normal, ears appear normal Cardiovascular: regular rate and rhythym, No irregularly irregular, No JVD Respiratory: no respiratory distress, no rales or rhonchi, reduced air movement Gastrointestinal: normoactive bowel sounds, No tenderness, No ascites Skin: warm, no rashes or abrasions, erythema Musculoskeletal: normal joint ROM, no joint effusions, generalized weakness Neurologic: AAOx3 Psychiatric: not encephalopathic, anxious, poor insight ICD10 Worksheet Patient Problems: Problems Problem Status Onset Alcohol abuse Acute Alcohol withdrawal Acute Alcoholic pancreatitis Acute Acute alcoholic pancreatitis Acute
[2018-01-09 18:35] LABS: HEPATITIS B SURFACE ANTIGEN NEGATIVE (NEGATIVE)
[2018-01-09 18:36] LABS: HEPATITIS A ANTIBODY TOTAL POSITIVE (NEGATIVE); HEPATITIS B CORE AB TOTAL NEGATIVE (NEGATIVE); HEPATITIS C ANTIBODY TOTAL NEGATIVE (NEGATIVE); HIV TYPE 1 AND 2 NEGATIVE (NEGATIVE)
[2018-01-09 19:50] LABS: HEPATITIS A ANTIBODY IGM (BCH) NEGATIVE (NEGATIVE)
[2018-01-09] MEDS: PRAZOSIN HCL 1 MG CAP PO SCH (21:17)
[2018-01-10] MEDS: oxyCODONE IR 5 MG TAB PO PRN ×5 (02:37→22:06)
[2018-01-10] MEDS: ceFAZolin 2 GM/DEXTROSE 100 ML IV SCH ×3 (06:00→21:58)
[2018-01-10] MEDS: SENNOSIDES/DOCUSATE SODIUM TAB PO SCH ×2 (08:01→22:15)
[2018-01-10] MEDS: LORazepam 0.5 MG TAB PO PRN (08:02)
[2018-01-10] MEDS: NICOTINE 21 MG/24 HR PATCH TD SCH (08:02)
[2018-01-10] MEDS: PRAZOSIN HCL 1 MG CAP PO SCH ×2 (08:02→21:57)
[2018-01-10] MEDS: PANTOPRAZOLE SODIUM 40 MG TAB PO SCH ×2 (08:02→21:57)
[2018-01-10] MEDS: THIAMINE HCL 100 MG TAB PO SCH (08:02)
[2018-01-10] MEDS ORDERED: ALTEPLASE 2 MG VIAL IVP PRN (08:52)
--- NOTE | 2018-01-10 08:59 | PCMIDPN ---
Assessment/Plan: 1. Low-grade MSSA bacteremia secondary to right forearm superficial thrombophlebitis: Thankfully, the patient seems to have cleared his bacteremia, and on exam, low clinical suspicion for evolving abscess at this point in time, although will need to be vigilant for this. Continue warm packs. Repeat blood cultures are negative at 24 hr, and unfortunately the patient looks like he is developing a superficial thrombophlebitis in his left forearm peripheral IV site. Nurse tells me that he has no other veins. Am okay with placing PICC line in the left upper extremity. Will also order TTE. HIV antibody testing negative. 2. Probable septic superficial thrombophlebitis left forearm peripheral IV site: Will remove peripheral IV promptly. Needs warm packs this area as well. Obtain ultrasound to evaluate for clot. Does not look like he is developing abscess here, either. PICC line as per the above. 3. Alcoholic pancreatitis/hepatitis: Improving. Over 25 min spent with this patient today. 01/10/18 09:00 Subjective: Patient is tearful, and tells me"I do not feel like an getting better." Proceeded to tell him the good news that his repeat blood culture so far negative, and that his lipase and liver function tests are improving as well, and fever seem to be resolving. He was happy to hear that. Still has body pain all over. Objective: Ancef 2 g IV q.8 hours day 2 T-max 37 degrees Vital Signs Temp Pulse Resp BP Pulse Ox 37.0 C 79 16 115/60 93 01/10/18 07:26 01/10/18 07:26 01/10/18 07:26 01/10/18 07:26 01/10/18 07:26 Microbiology 01/07/18 05:25 Blood Panel (PCR) - Final Blood S.aureus Methicillin Suscept. Laboratory Results 01/09/18 04:40 01/09/18 04:40 01/09/18 01/10/18 01/11/18 05:59 05:59 05:59 Intake Total 4150 500 Output Total 800 Balance 3350 500 HIV antibody negative January 09 blood cultures so far negative at over 24 hr January 07 blood cultures x2 1/4 bottles MSSA - Physical Exam General Appearance: alert, other (Tearful) EENT: pharynx normal, No thrush Respiratory: lungs clear Cardiac/Chest: regular rate, rhythm, No systolic murmur Extremities: other (Right forearm with palpable cord, and some blanching erythema that looks like it is from the warm packs and not from a cellulitis. No fluctuance. It the area is tender. Left forearm is notable for some evolving erythema and tenderness at the peripheral IV site. Patient's right hand dorsum is also notable for a patch of erythema at a previous PIV site with no tenderness) Skin: No embolic lesions Neuro/Psych: oriented x 3 ICD10 Worksheet Patient Problems: Problems Problem Status Onset Alcohol abuse Acute Alcohol withdrawal Acute Alcoholic pancreatitis Acute Acute alcoholic pancreatitis Acute
--- NOTE | 2018-01-10 11:47 | ECHO ---
[email or web address] [address] [address] Main: [phone] Fax: Transthoracic Echocardiogram Name: JUVENCIO HICKMAN MR#: [id number] Study Date: 01/10/2018 Study Time: 09:53 AM Date of : 1990 Age: 27 year(s) Height: ( ) Weight: ( ) BSA: Gender: Male Examination: Echo Indication: Re-admition, MSSA Bacteremia, Septic thromophlebitis, Polysubstance abuse Image Quality: Contrast: Requested by: Teresa Funes BP: 126 mmHg/75 mmHg Heart Rate: Rhythm: Normal sinus rhythm Indication: Re-admition, MSSA Bacteremia, Septic thromophlebitis, Polysubstance abuse Procedure Staff Press Operator Helper: Peter Valera RDCS Reading Physician: Lotus Dunn MD Requesting Provider: Conclusions: Normal size left ventricle. No LV hypertrophy. Normal global systolic LV function. EF is 66 %. No regional wall motion abnormality. Normal diastolic LV function. Normal size right ventricle. Normal RV function. Trivial mitral valve regurgitation. Cannot rule out small vegetation associated with the anterior mitral valve. . The aortic valve is tri-leaflet and functions normally. The tricuspid valve is normal in appearance and function. The pulmonic valve is normal in appearance and function. Compared with 12/30/2017 overall similar findings. Discussed with Dr. Funes. Measurements: Chambers Valvular Assessment AV/MV Valvular Assessment TV/PV Normal Normal Normal Name Value Range Name Value Range Name Value Range Ao Crystal (MM): 3.2 cm (2.2 cm-3.7 AV Vmax: 1.15 m/s (1 m/s-1.7 TR Vmax: 2.80 mm/s ( - ) cm) m/s) TR PGmax: 31 mmHg ( - ) IVSd (2D): 0.8 cm (0.6 cm-1.1 AV maxP mmHg ( - ) syst. PAP: 36 mmHg ( - ) cm) LVOT Vmax: 0.87 m/s (0.7 m/s-1.1 PV Vmax: 0.99 m/s (0.6 m/s-0.9 LVDd (2D): 4.8 cm (4.2 cm-5.9 m/s) m/s) cm) MV E Vmax: 0.74 m/s ( - ) PV PGmax: 4 mmHg ( - ) LVDs (2D): 3.0 cm (2.1 cm-4 MV A Vmax: 0.48 m/s ( - ) cm) MV E/A: 1.54 ( - ) LVPWd (2D): 1.1 cm (0.6 cm-1 cm) Patient: JUVENCIO HICKMAN Study Date: 01/10/2018 Page 1 of 2 09:53 AM LVEF (2D): 66 (>=54 %) Continued Measurements: Chambers Valvular Assessment AV/MV Valvular Assessment TV/PV Name Value Name Value Name Value LADs Lon.9 cm MV E' Septal: 0.08 m/s CVP (est.): 5 mmHg LA Area: 15.2 cm2 MV E/E' Septal: 9.50 LA Volume: 32 ml MV E/E' Lateral: 5.30 Findings: Left Ventricle: Normal size left ventricle. No LV hypertrophy. Normal global systolic LV function. EF is 66 %. No regional wall motion abnormality. Normal diastolic LV function. Right Ventricle: Normal size right ventricle. Normal RV function. Left Atrium: The left atrium is normal in size. Right Atrium: The right atrium is normal in size. Mitral Valve: Trivial mitral valve regurgitation. Cannot rule out small vegetation associated with the anterior mitral valve. . Aortic Valve: The aortic valve is normal in appearance and function. The aortic valve is tri-leaflet. The aortic valve is tri-leaflet and functions normally. Tricuspid Valve: The tricuspid valve is normal in appearance and function. Pulmonic Valve: The pulmonic valve is normal in appearance and function. Aorta: The aorta is normal. Pericardium: No pericardial effusion. Exam Comments: (No Signature Object) Patient: JUVENCIO HICKMAN Study Date: 01/10/2018 Page 2 of 2 09:53 AM [id number]
[2018-01-10] MEDS: DIAZEPAM 5 MG TAB PO PRN ×2 (14:39→22:06)
--- NOTE | 2018-01-10 15:01 | ASMTCMCOM ---
CM Note CM Note Notes: CM met with pt. Pt emotionally distraught over his continued medical needs and his uncertain circumstances following his d/c. He c/o not sleeping for the last 4 days and feeling exhausted. He again reiterated that he does not want a pic line due to the risk of infection. CM spoke with him again re [facility] and [facility]. On the day he is d/[facility] will be called, and if it is early enough in the day and there is a bed available, pt will be sent by taxi to [facility] where he can move through [facility]. If [facility] does not have an available bed the day he is d/c'ed or it is too late in the day to go through [facility] he will be given one of the hospital's beds at the long-term and a cab voucher so that the following morning he can go to [facility]. CM to follow. Date Signed: 01/10/2018 03:01 PM Electronically Signed By:Anna You
--- NOTE | 2018-01-10 15:45 | HOSPPROG ---
Hospitalist Progress Note Assessment/Plan: 27-year-old gentleman with history of alcohol dependence, alcohol pancreatitis and withdrawal seizures, PTSD and anxiety who presents emergency department today with complaints of 1 day history of epigastric left upper quadrant abdominal pain intractable nausea vomiting. He was discharged a few days ago- was able to abstain from alcohol x 2 days, but relapsed. # MSSA bacteremia superficial septic thrombophlebitis related to peripheral IV -reviewed with Dr Funes -possible fluctuance over thrombosed vein right forearm but overall erythema of the forearm is improved. -Still febrile overnight -blood cultures repeated this a.m. to establish clearance -continue cefazolin -may have to consider reimaging right forearm to evaluate for evolving abscess associated with vein -elevate right upper extremity, avoid IV placement right upper extremity -discussed possible PICC line if lose IV access, refusing, concerned about infection #abnormality on his mitral valve -warrants further evaluation with a YUAN -in am # Probable septic superficial thrombophlebitis left forearm peripheral IV site -left forearm ultrasound is notable for a large occlusive thrombosis of the cephalic vein -consult Hematology, D/W Dr Blas -warm compress # Elevated LFTs: -Continued gradual improvement -screen negative *Alcoholic pancreatitis -supportive care w IV hydration and pain medications -CT scan which shows resolution of the pancreatitis *fevers -related to thrombophlebitis *+ blood cx: MSSA (one blood cx) -Cefazolin *epigastric pain -due to the above, he is on a PPI -informed he will not be dc on narcotics -increased PPI bid, prn Maalox *Nausea vomiting -none further *Drug seeking behavior -asking for iv Ativan and requesting pain medications -trial of non narcotics *Anion gap metabolic acidosis -related to alcoholic ketosis. *Alcohol dependence -he had been sober x 8 months and then his mom 6 months ago -started drinking actively again -he says he is withdrawing and requiring Ativan -dc CIWA *Anxiety,PTSD and depression - -prazosin -DC Ativan p.r.n., start valium and seroquel -Melina talking w Tim about Prazosin to help him w nightmares *homelessness -family is from the [place] area *Plan: Continue supportive care -watch arm -cont iv abx Subjective: Very anxious today. Unable to sleep at night. Concerned about infection. Anxious about getting a PICC line. Objective: Vital Signs Temp Pulse Resp BP Pulse Ox 36.8 C 91 16 109/66 96 01/10/18 12:00 01/10/18 12:00 01/10/18 12:00 01/10/18 12:00 01/10/18 12:00 Microbiology 01/07/18 05:25 Blood Panel (PCR) - Final Blood S.aureus Methicillin Suscept. Laboratory Results 01/09/18 04:40 01/09/18 04:40 01/09/18 01/10/18 01/11/18 05:59 05:59 05:59 Intake Total 4150 500 Output Total 800 Balance 3350 500 - Physical Exam Constitutional: appears nourished, not in pain, uncomfortable Eyes: PERRL, anicteric sclera, EOMI Ears, Nose, Mouth, Throat: moist mucous membranes, hearing normal, ears appear normal Cardiovascular: No JVD, No tachycardia, No edema Respiratory: no respiratory distress, no rales or rhonchi, reduced air movement Gastrointestinal: normoactive bowel sounds, No tenderness, No ascites Skin: warm, no rashes or abrasions, erythema Musculoskeletal: no joint effusions, pain with ROM, generalized weakness Neurologic: AAOx3 Psychiatric: not encephalopathic, anxious, poor insight ICD10 Worksheet Patient Problems: Problems Problem Status Onset Alcohol abuse Acute Alcohol withdrawal Acute Alcoholic pancreatitis Acute Acute alcoholic pancreatitis Acute
--- NOTE | 2018-01-10 17:04 | GCON ---
HEMATOLOGY CONSULTATION DATE OF CONSULTATION: 01/10/2018 REFERRING PHYSICIAN: Teresa Funes MD REASON FOR CONSULTATION: Multiple superficial thrombophlebitis. HISTORY OF PRESENT ILLNESS: The patient is a 27-year-old man with alcohol-induced pancreatitis. Dur ing this hospitalization, he developed bilateral superficial thrombophlebitis in both arms at IV [facility] ture sites. He also developed methicillin-sensitive Staph aureus bacteremia, likely as a result of o ne of his IV punctures. He requires continued IV access for completion of a 2-week course of antibio tics. I am asked to consult to see whether he might have an underlying thrombophilic state that may be contributing to the superficial thrombophlebitis. Bilateral ultrasounds of the arms have not reve aled any evidence of deep vein thrombosis. As noted above, the patient was admitted with alcoholic pancreatitis. His lipase on admission was 14 00, and he had elevated AST and ALT consistent with alcoholic hepatitis. All those numbers are impro ving. He had mild thrombocytosis on admission of 433 and mild leukocytosis currently, but no other h ematological abnormalities. He has no prior history of superficial or deep venous thrombosis, and th ere is no family history of thrombophilia. PAST MEDICAL HISTORY: 1. Alcohol abuse. 2. Anxiety. 3. Depression. 4. PTSD. CURRENT MEDICATIONS: Include Ancef, hydroxyzine, Toradol, Zofran, Protonix, Seroquel, thiamine. ALLERGIES: He is allergic to gabapentin. FAMILY HISTORY: Noncontributory. SOCIAL HISTORY: He smokes a pack per day. He drinks alcohol heavily. He is homeless. REVIEW OF SYSTEMS: Other than pertinent positives in the HPI, a 14-point review of systems was negat jaime. EXAMINATION: VITAL SIGNS: His temperature was 36.8, blood pressure 109/66, heart rate 91, oxygen sa turation 96% on room air. GENERAL: He was a tired-appearing male, in no acute distress. HEENT: An icteric. Oropharynx is clear. NECK: Supple, without lymphadenopathy. LUNGS: Clear to auscultatio n bilaterally. CARDIAC: Regular rate and rhythm. No murmurs, gallops, or rubs. ABDOMEN: Normoacti ve bowel sounds. Nontender, nondistended. EXTREMITIES: There were bilateral superficial thrombophl ebitis in both forearms, without evidence of cellulitis. NEUROLOGICAL: He is alert and oriented x3. LABORATORY DATA: Reviewed in the HPI section. IMPRESSION: This is a 27-year-old man with multiple superficial thrombophlebitis. He has no prior h istory of venous thromboembolism, and there is no family history. Most likely, the thrombosis is due to the intense inflammatory state induced by the pancreatitis. I do not think there is any need to invoke an inherited hypercoagulable state, and I would not recommend testing for such right now. In terms of ongoing management, he will likely require a central line for continued administration of IV antibiotics. It would be reasonable to put him on a prophylactic dose of an anticoagulant, such as Lovenox 40 mg subcutaneously daily, in order to prevent thrombosis of the line. The Lovenox would likely be discontinued once all of his IVs are out, and it would not necessarily need to be continue d long-term as an outpatient. Certainly, if additional thrombosis develops, particularly deep vein thrombosis, we could reconsider a hypercoagulable workup, but at the current time, it does not appear to me to be indicated. Thank you for this consultation. Please call us again if any further questions arise during this hos pitalization. /[id number]/MODL
[2018-01-10] MEDS: QUEtiapine FUMARATE 50 MG TAB PO SCH (21:57)
[2018-01-11] MEDS: oxyCODONE IR 5 MG TAB PO PRN ×5 (05:28→22:16)
[2018-01-11] MEDS: ceFAZolin 2 GM/DEXTROSE 100 ML IV SCH ×3 (05:29→21:32)
[2018-01-11] MEDS ORDERED: NS 1,000 ML IV ONE (06:00)
[2018-01-11] MEDS: QUEtiapine FUMARATE 50 MG TAB PO SCH (08:05)
[2018-01-11] MEDS: THIAMINE HCL 100 MG TAB PO SCH (08:05)
[2018-01-11] MEDS: PRAZOSIN HCL 1 MG CAP PO SCH ×2 (08:05→21:32)
[2018-01-11] MEDS: SENNOSIDES/DOCUSATE SODIUM TAB PO SCH ×2 (08:05→21:32)
[2018-01-11] MEDS: PANTOPRAZOLE SODIUM 40 MG TAB PO SCH ×2 (08:05→21:32)
[2018-01-11] MEDS: NICOTINE 21 MG/24 HR PATCH TD SCH (08:05)
--- NOTE | 2018-01-11 09:17 | PCMIDPN ---
Assessment/Plan: 1. Low-grade MSSA bacteremia secondary to right forearm superficial thrombophlebitis: Blood cultures cleared rapidly. Concern for endocarditis is low. Spoke with Dr. Dunn. Will hold off on YUAN for now, as suspicion for endocarditis is low, and abnormality on TTE could be route service representative of a chordae---this is much more likely. Will treat with 2 weeks of IV Ancef; stop date January 21. He will likely need to be in house for the duration of treatment as he is homeless presently. Right forearm cord is less tender today, and smaller. Continue warm packs. No evidence of evolving abscess. Sincerely appreciate Dr. Blas 's consult; agree that clotting likely from inflammatory state in the setting of pancreatitis. 2. Superficial thrombophlebitis left forearm peripheral IV site: Peripheral IV was removed. Continue warm packs. Improving. No evidence of developing abscess. 3. Alcoholic pancreatitis/hepatitis: Also improving. Long conversation with patient today about the deleterious effects of alcohol. Patient is interested in treatment, and is working with social work to find a inpatient program. Over 25 min spent with this patient today. 01/11/18 09:19 Subjective: In a much better mood today. Much less anxious. Feeling better. Still has some central abdominal discomfort. Objective: Ancef 2 g IV q.8 hours, stop date January 21 No fevers Vital Signs Temp Pulse Resp BP Pulse Ox 36.9 C 68 16 107/68 95 01/11/18 07:08 01/11/18 07:08 01/11/18 07:08 01/11/18 07:08 01/11/18 07:08 Microbiology 01/07/18 05:25 Blood Panel (PCR) - Final Blood S.aureus Methicillin Suscept. Laboratory Results 01/09/18 04:40 01/09/18 04:40 01/10/18 01/11/18 01/12/18 05:59 05:59 05:59 Intake Total 500 Balance 500 January 09 blood cultures x2 negative January 07 blood cultures 1/4 bottles MSSA - Physical Exam General Appearance: alert, no apparent distress EENT: pharynx normal, No thrush Respiratory: lungs clear Cardiac/Chest: regular rate, rhythm, No systolic murmur Extremities: other (Dorsum of right arm with palpable cord, but much less tender. No erythema or developing abscess. Left forearm with palpable cord at previous P IV site. No erythema or developing abscess) Abdomen: soft, other (Mild tenderness to palpation) Skin: No embolic lesions ICD10 Worksheet Patient Problems: Problems Problem Status Onset Alcohol abuse Acute Alcohol withdrawal Acute Alcoholic pancreatitis Acute Acute alcoholic pancreatitis Acute
--- NOTE | 2018-01-11 13:28 | HOSPPROG ---
Hospitalist Progress Note Assessment/Plan: 27-year-old gentleman with history of alcohol dependence, alcohol pancreatitis and withdrawal seizures, PTSD and anxiety who presents emergency department today with complaints of 1 day history of epigastric left upper quadrant abdominal pain intractable nausea vomiting. He was discharged a few days ago- was able to abstain from alcohol x 2 days, but relapsed. # MSSA bacteremia superficial septic thrombophlebitis related to peripheral IV -reviewed with Dr Funes -improved -continue cefazolin, last day Jan 21. -elevate both upper extremity, avoid IV placement right upper extremity #abnormality on mitral valve -no noreen -likely chordae # Probable septic superficial thrombophlebitis left forearm peripheral IV site -left forearm ultrasound is notable for a large occlusive thrombosis of the cephalic vein -appreciate oncology consult -warm compress # Elevated LFTs: -Continued gradual improvement -screen negative *Alcoholic pancreatitis -supportive care w IV hydration and pain medications -CT scan which shows resolution of the pancreatitis *fevers -related to thrombophlebitis *+ blood cx: MSSA (one blood cx) -Cefazolin *epigastric pain -due to the above, he is on a PPI -informed he will not be dc on narcotics -increased PPI bid, prn Maalox *Nausea vomiting -none further *Drug seeking behavior -asking for iv Ativan and requesting pain medications -trial of non narcotics *Anion gap metabolic acidosis -related to alcoholic ketosis. *Alcohol dependence -he had been sober x 8 months and then his mom 6 months ago -started drinking actively again -he says he is withdrawing and requiring Ativan -dc CIWA *Anxiety,PTSD and depression - -prazosin -DC Ativan p.r.n., start valium and seroquel -much better today -D/W CM will need outpt support -Melina talking w Tmi about Prazosin to help him w nightmares *homelessness -family is from the [place] area *Plan: Continue supportive care -watch arm -cont iv abx Subjective: Up in bed. Feeling better today. Less anxiety. Slept last night. Objective: Vital Signs Temp Pulse Resp BP Pulse Ox 36.9 C 68 16 107/68 95 01/11/18 07:08 01/11/18 07:08 01/11/18 07:08 01/11/18 07:08 01/11/18 07:08 Microbiology 01/07/18 05:25 Blood Panel (PCR) - Final Blood S.aureus Methicillin Suscept. Laboratory Results 01/09/18 04:40 01/09/18 04:40 01/10/18 01/11/18 01/12/18 05:59 05:59 05:59 Intake Total 500 Balance 500 - Physical Exam Constitutional: no apparent distress, appears nourished, uncomfortable Eyes: PERRL, anicteric sclera, EOMI Ears, Nose, Mouth, Throat: moist mucous membranes, hearing normal, ears appear normal Cardiovascular: No JVD, No edema Respiratory: no respiratory distress, no rales or rhonchi, reduced air movement Gastrointestinal: normoactive bowel sounds, No tenderness, No ascites Skin: warm, erythema, No mottled Musculoskeletal: normal joint ROM, no joint effusions, generalized weakness Neurologic: AAOx3 Psychiatric: thought process linear, anxious, poor insight, poor judgement ICD10 Worksheet Patient Problems: Problems Problem Status Onset Acute alcoholic pancreatitis Acute Alcohol withdrawal Acute Alcohol abuse Acute Alcoholic pancreatitis Acute
[2018-01-11] MEDS: DIAZEPAM 5 MG TAB PO PRN ×2 (13:56→21:42)
[2018-01-12] MEDS: ceFAZolin 2 GM/DEXTROSE 100 ML IV SCH ×3 (05:56→21:42)
[2018-01-12] MEDS: NICOTINE 21 MG/24 HR PATCH TD SCH (09:44)
[2018-01-12] MEDS: PANTOPRAZOLE SODIUM 40 MG TAB PO SCH ×2 (09:45→21:42)
[2018-01-12] MEDS: SENNOSIDES/DOCUSATE SODIUM TAB PO SCH ×2 (09:46→21:42)
[2018-01-12] MEDS: PRAZOSIN HCL 1 MG CAP PO SCH ×2 (09:46→21:43)
[2018-01-12] MEDS: THIAMINE HCL 100 MG TAB PO SCH (09:47)
[2018-01-12] MEDS: oxyCODONE IR 5 MG TAB PO PRN ×4 (09:48→23:12)
[2018-01-12] MEDS: QUEtiapine FUMARATE 50 MG TAB PO SCH ×2 (11:18→21:43)
[2018-01-12] MEDS: HYDROCODONE/APAP 5/325 TAB PO PRN (12:45)
[2018-01-12] MEDS: DIAZEPAM 5 MG TAB PO PRN ×2 (14:33→23:12)
--- NOTE | 2018-01-12 15:30 | PCMIDPN ---
Assessment/Plan: Assessment: MSSA bacteremia secondary to superficial thrombophlebitis from recent treatment for pancreatitis. Currently on cefazolin. Plan to give a 2 week course given rapid clearance of MSSA. Most recent blood cultures remain no growth to date. Bilateral upper extremity still with infiltrated indurated areas. Will monitor the improvement of this over time. Plan: 1. Continue IV Ancef. 2. Start IV fluids with KVO Subjective: Patient is resting in his hospital room. He notes that his arms are still painful right more than left. Denies any new fevers or chills. In reasonably good spirits. Tolerating Ancef without issue Objective: Cefazolin # 5 Vital Signs Temp Pulse Resp BP Pulse Ox 36.6 C 64 12 119/80 95 01/12/18 08:00 01/12/18 08:00 01/12/18 08:00 01/12/18 08:00 01/12/18 08:00 Microbiology 01/07/18 05:25 Blood Culture - Final Blood Staphylococcus Aureus Blood Panel (PCR) - Final S.aureus Methicillin Suscept. 01/07/18 05:20 Blood Culture - Final Blood Laboratory Results 01/09/18 04:40 01/09/18 04:40 01/11/18 01/12/18 01/13/18 05:59 05:59 05:59 Intake Total 550 Balance 550 - Physical Exam General Appearance: WD/WN, alert, no apparent distress, non-toxic Respiratory: lungs clear, normal breath sounds, No respiratory distress Cardiac/Chest: regular rate, rhythm, No tachycardia Extremities: swelling, erythema, No non-tender, No normal inspection Skin: normal color, warm/dry, No rash Neuro/Psych: alert, normal mood/affect, oriented x 3 ICD10 Worksheet Patient Problems: Problems Problem Status Onset Alcohol abuse Acute Alcohol withdrawal Acute Alcoholic pancreatitis Acute Acute alcoholic pancreatitis Acute
--- NOTE | 2018-01-12 15:53 | HOSPPROG ---
Hospitalist Progress Note Assessment/Plan: 27-year-old gentleman with history of alcohol dependence presenting initially with alcoholic pancreatitis with hospital course complicated by etoh w/d and MSSA bacteremia # MSSA bacteremia: 2/2 superficial septic thrombophlebitis related to peripheral IV, will require IV abx with cefazolin until at least 01/21, arms remain painful with some areas of induration # bilateral septic superficial thrombophlebitis: oncology has weighed in and feels that this is likely due to inflammatory state related to pancreatitis rather than underlying predisposition to clotting # alcoholic pancreatitis: CT scan has shown resolution and sxs are improved, tolerating diet, has had this in the past as well # alcoholic hepatitis: LFTs have been trending down # alcohol use disorder, severe: with complications of pancreatitis in the past as well as withdrawal and w/d seizures, will continue to family life counselor patient on importance of cessation # AGMA: secondary to alcohol ketoacidosis, resolved # anxiety/ptd/depression: prazosin, prn valium, seroquel at hs and all in all improving # IP status Patient new to my care. Old records reviewed and summarized as above. Subjective: no significant overnight events, patient notes that he is a bit bored but otherwise doing well Objective: Vital Signs Temp Pulse Resp BP Pulse Ox 36.6 C 64 12 119/80 95 01/12/18 08:00 01/12/18 08:00 01/12/18 08:00 01/12/18 08:00 01/12/18 08:00 Microbiology 01/07/18 05:25 Blood Culture - Final Blood Staphylococcus Aureus Blood Panel (PCR) - Final S.aureus Methicillin Suscept. 01/07/18 05:20 Blood Culture - Final Blood Laboratory Results 01/09/18 04:40 01/09/18 04:40 01/11/18 01/12/18 01/13/18 05:59 05:59 05:59 Intake Total 550 Balance 550 awake alert anicteric op clear rrr no mrg cta b soft nt nd no cce warm dry well perfused oriented tremulous - Time Spent With Patient Time Spent with Patient: greater than 35 minutes Time Spent with Patient: Greater than 35 minutes spent on this patients care, greater than 50% of time spent counseling, educating, and coordinating care regarding the above mentioned plan. ICD10 Worksheet Patient Problems: Problems Problem Status Onset Acute alcoholic pancreatitis Acute Alcohol withdrawal Acute Alcohol abuse Acute Alcoholic pancreatitis Acute
[2018-01-13] MEDS: ceFAZolin 2 GM/DEXTROSE 100 ML IV SCH ×3 (05:50→20:49)
[2018-01-13] MEDS: oxyCODONE IR 5 MG TAB PO PRN ×4 (05:51→22:14)
[2018-01-13] MEDS: SENNOSIDES/DOCUSATE SODIUM TAB PO SCH ×2 (08:49→20:49)
[2018-01-13] MEDS: PRAZOSIN HCL 1 MG CAP PO SCH ×2 (08:49→20:48)
[2018-01-13] MEDS: HYDROCODONE/APAP 5/325 TAB PO PRN ×2 (08:49→18:31)
[2018-01-13] MEDS: THIAMINE HCL 100 MG TAB PO SCH (08:49)
[2018-01-13] MEDS: PANTOPRAZOLE SODIUM 40 MG TAB PO SCH ×2 (08:49→20:48)
[2018-01-13] MEDS: NICOTINE 21 MG/24 HR PATCH TD SCH (08:50)
--- NOTE | 2018-01-13 14:11 | ASMTCMCOM ---
CM Note CM Note Notes: 01/13/2018 Case Management Note Reviewed chart. Per hospitalist 01/12 note pt to remain on IV cefazolin at least until 01/21. Please see previous case management notes for complete update on pt hospital stay. Case Management d/c poc: remains unchanged. Option 1) d/c to reserved bed at [facility] and then complete coordinated entry. Option 2) [place] [facility] bed and then complete coordinated entry. Case Management to follow. Date Signed: 01/13/2018 02:10 PM Electronically Signed By:Kathy Chavez RN
--- NOTE | 2018-01-13 14:47 | HOSPPROG ---
Hospitalist Progress Note Assessment/Plan: 27-year-old gentleman with history of alcohol dependence presenting initially with alcoholic pancreatitis with hospital course complicated by etoh w/d and MSSA bacteremia # MSSA bacteremia: 2/2 superficial septic thrombophlebitis related to peripheral IV, will require IV abx with cefazolin until at least 01/21, arms remain painful with some areas of induration but overall improving # bilateral septic superficial thrombophlebitis: oncology has weighed in and feels that this is likely due to inflammatory state related to pancreatitis rather than underlying predisposition to clotting so no need for ongoing AC but he does recommend lovenox ppx dosing for now # alcoholic pancreatitis: CT scan has shown resolution and sxs are improved, tolerating diet, has had this in the past as well # alcoholic hepatitis: LFTs have been trending down # alcohol use disorder, severe: with complications of pancreatitis in the past as well as withdrawal and w/d seizures, will continue to [place] counsel patient on importance of cessation # AGMA: secondary to alcohol ketoacidosis, resolved # anxiety/ptd/depression: prazosin, prn valium, seroquel at hs and all in all improving # IP status Subjective: no significant overnight events, patient notes he is overall feeling better Objective: Vital Signs Temp Pulse Resp BP Pulse Ox 36.8 C 70 16 103/68 95 01/13/18 07:51 01/13/18 07:51 01/13/18 07:51 01/13/18 07:51 01/13/18 07:51 Laboratory Results 01/09/18 04:40 01/09/18 04:40 01/12/18 01/13/18 01/14/18 05:59 05:59 05:59 Intake Total 550 800 Balance 550 800 awake alert anicteric op clear rrr no mrg cta b soft nt nd no cce warm dry well perfused oriented tremulous ICD10 Worksheet Patient Problems: Problems Problem Status Onset Alcohol abuse Acute Alcohol withdrawal Acute Alcoholic pancreatitis Acute Acute alcoholic pancreatitis Acute
[2018-01-13] MEDS: DIAZEPAM 5 MG TAB PO PRN ×2 (15:07→22:14)
[2018-01-13] MEDS: ENOXAPARIN 40 MG/0.4 ML SYR SC SCH (15:07)
--- NOTE | 2018-01-13 17:32 | PCMIDPN ---
Assessment/Plan: Assessment: MSSA bacteremia secondary to superficial thrombophlebitis from recent treatment for pancreatitis. Currently on cefazolin. Plan to give a 2 week course given rapid clearance of MSSA. Most recent blood cultures remain no growth to date. Bilateral upper extremity still with infiltrated indurated areas. Will monitor the improvement of this over time. Plan: 1. Continue IV Ancef. 2. Continue KVO. 01/13/18 17:29 Subjective: Patient states that his swelling in his arms are slightly better today. No fevers or chills. Right wrist peripheral IV is still holding up. Objective: Cefazolin # 6 Vital Signs Temp Pulse Resp BP Pulse Ox 36.5 C 72 16 99/56 L 95 01/13/18 15:32 01/13/18 15:32 01/13/18 15:32 01/13/18 15:32 01/13/18 15:32 Laboratory Results 01/09/18 04:40 01/09/18 04:40 01/12/18 01/13/18 01/14/18 05:59 05:59 05:59 Intake Total 550 800 Balance 550 800 - Physical Exam General Appearance: WD/WN, alert, no apparent distress, non-toxic Cardiac/Chest: regular rate, rhythm, No tachycardia Extremities: inflammation (Mild), swelling (Mild bilateral upper extremity with tender cords), No non-tender, No normal inspection, No erythema Skin: normal color, warm/dry, No rash Neuro/Psych: alert, normal mood/affect, oriented x 3 ICD10 Worksheet Patient Problems: Problems Problem Status Onset Alcohol abuse Acute Alcohol withdrawal Acute Alcoholic pancreatitis Acute Acute alcoholic pancreatitis Acute
[2018-01-13] MEDS: QUEtiapine FUMARATE 50 MG TAB PO SCH (20:48)
[2018-01-13] MEDS ORDERED: BENZOCAINE 20%/MENTHOL (ORAJEL) GEL 11.9GM TUBE TP PRN (22:55)
[2018-01-14] MEDS: oxyCODONE IR 5 MG TAB PO PRN ×5 (02:38→21:51)
[2018-01-14] MEDS: HYDROCODONE/APAP 5/325 TAB PO PRN (05:27)
[2018-01-14] MEDS: ceFAZolin 2 GM/DEXTROSE 100 ML IV SCH ×3 (05:28→21:51)
[2018-01-14] MEDS: NICOTINE 21 MG/24 HR PATCH TD SCH (08:15)
[2018-01-14] MEDS: ENOXAPARIN 40 MG/0.4 ML SYR SC SCH (08:16)
[2018-01-14] MEDS: THIAMINE HCL 100 MG TAB PO SCH (08:16)
[2018-01-14] MEDS: PANTOPRAZOLE SODIUM 40 MG TAB PO SCH ×2 (08:16→21:52)
[2018-01-14] MEDS: PRAZOSIN HCL 1 MG CAP PO SCH ×2 (08:16→21:52)
[2018-01-14] MEDS: SENNOSIDES/DOCUSATE SODIUM TAB PO SCH ×2 (08:16→21:52)
[2018-01-14] MEDS: DIAZEPAM 5 MG TAB PO PRN ×3 (08:26→21:52)
--- NOTE | 2018-01-14 09:58 | PCMIDPN ---
Assessment/Plan: Assessment/Plan: * MSSA bacteremia due to superficial thrombophlebitis with rapid clearance of blood cultures: Completing 2 weeks of IV cefazolin with stop date of 2017. Continue supportive care for areas of thrombophlebitis. Disposition complicated by patient being homeless with continued need for IV antibiotics. * Rash: Scaly rash over here. Will apply topical hydrocortisone. Separate rash over anterior knee consistent with psoriasis. 01/14/18 09:55 01/14/18 09:58 Subjective: Patient complains of pain at site of fractured wisdom tooth. Persistent pain in both forearms although improved versus initial presentation. Also complains of pruritic rash over right earlobe. Objective: Vital Signs Temp Pulse Resp BP Pulse Ox 36.8 C 63 16 106/73 97 01/14/18 07:34 01/14/18 07:34 01/14/18 07:34 01/14/18 07:34 01/14/18 07:34 Microbiology 01/09/18 04:40 Blood Culture - Final Blood 01/09/18 04:56 Blood Culture - Final Blood Laboratory Results 01/09/18 04:40 01/09/18 04:40 01/13/18 01/14/18 01/15/18 05:59 05:59 05:59 Intake Total 800 2580 Balance 800 2580 Cefazolin # 7 Blood cultures 01/09/2018 no growth - Physical Exam General Appearance: alert, no apparent distress EENT: No scleral icterus, No thrush Respiratory: lungs clear, No respiratory distress Cardiac/Chest: regular rate, rhythm, No systolic murmur Extremities: inflammation (Edema with tenderness and induration over right forearm below antecubital fossa extending distally to mid forearm; left forearm with indurated area phlebitis at site of prior IV; no fluctuance at either site) Skin: rash (Scaly rash over right earlobe; patch of psoriasis below right knee) ICD10 Worksheet Patient Problems: Problems Problem Status Onset Alcohol abuse Acute Alcohol withdrawal Acute Alcoholic pancreatitis Acute Acute alcoholic pancreatitis Acute
[2018-01-14] MEDS: HYDROCORTISONE 1% CREAM TP SCH ×2 (13:47→21:55)
--- NOTE | 2018-01-14 14:29 | HOSPPROG ---
Hospitalist Progress Note Assessment/Plan: 27-year-old gentleman with history of alcohol dependence presenting initially with alcoholic pancreatitis with hospital course complicated by etoh w/d and MSSA bacteremia # MSSA bacteremia: 2/2 superficial septic thrombophlebitis related to peripheral IV, will require IV abx with cefazolin until at least 01/21, arms remain painful with some areas of induration but overall improving # bilateral septic superficial thrombophlebitis: oncology has weighed in and feels that this is likely due to inflammatory state related to pancreatitis rather than underlying predisposition to clotting so no need for ongoing AC but he does recommend lovenox ppx dosing for now # alcoholic pancreatitis: CT scan has shown resolution and sxs are improved, tolerating diet, has had this in the past as well # alcoholic hepatitis: LFTs have been trending down # alcohol use disorder, severe: with complications of pancreatitis in the past as well as withdrawal and w/d seizures, will continue to corrections counselor patient on importance of cessation # AGMA: secondary to alcohol ketoacidosis, resolved # anxiety/ptd/depression: prazosin, prn valium, seroquel at hs and all in all improving will increase seroquel # IP status cont abx therapy discussed anxiety treatment Subjective: Feeling better today. Still tremors. Anxious. Objective: Vital Signs Temp Pulse Resp BP Pulse Ox 36.8 C 63 16 106/73 97 01/14/18 07:34 01/14/18 07:34 01/14/18 07:34 01/14/18 07:34 01/14/18 07:34 Microbiology 01/09/18 04:40 Blood Culture - Final Blood 01/09/18 04:56 Blood Culture - Final Blood Laboratory Results 01/09/18 04:40 01/09/18 04:40 01/13/18 01/14/18 01/15/18 05:59 05:59 05:59 Intake Total 800 2580 Balance 800 2580 - Physical Exam Constitutional: no apparent distress, appears nourished Eyes: PERRL, anicteric sclera Ears, Nose, Mouth, Throat: moist mucous membranes, hearing normal Cardiovascular: No JVD, No edema Respiratory: no respiratory distress, reduced air movement Gastrointestinal: No tenderness, No ascites Skin: warm, normal color Musculoskeletal: no joint effusions, generalized weakness Neurologic: AAOx3 Psychiatric: interacting appropriately, not encephalopathic, anxious ICD10 Worksheet Patient Problems: Problems Problem Status Onset Acute alcoholic pancreatitis Acute Alcohol withdrawal Acute Alcohol abuse Acute Alcoholic pancreatitis Acute
--- NOTE | 2018-01-14 16:21 | ASMTCMCOM ---
CM Note CM Note Notes: Pts case discussed w/ Janae Lopez EAR[employer] AUGER OPERATOR regarding d/c POC. CM provided pt w/ resources for [facility] and the phone number and names of the shelters in [place] and in [place] per his request. Pt will be here until 01/21 for ivabx. CM to follow. Plan: [facility] Date Signed: 01/14/2018 04:20 PM Electronically Signed By:JUNIE Howell
[2018-01-14] MEDS ORDERED: QUEtiapine FUMARATE 100 MG TAB PO SCH (21:00)
[2018-01-14] MEDS: QUEtiapine FUMARATE 100 MG TAB PO SCH (21:52)
[2018-01-15] MEDS: oxyCODONE IR 5 MG TAB PO PRN ×5 (05:25→22:11)
[2018-01-15] MEDS: ceFAZolin 2 GM/DEXTROSE 100 ML IV SCH ×3 (05:25→22:10)
[2018-01-15] MEDS: ENOXAPARIN 40 MG/0.4 ML SYR SC SCH (07:44)
[2018-01-15] MEDS: NICOTINE 21 MG/24 HR PATCH TD SCH (07:45)
[2018-01-15] MEDS: PRAZOSIN HCL 1 MG CAP PO SCH ×2 (07:46→22:11)
[2018-01-15] MEDS: SENNOSIDES/DOCUSATE SODIUM TAB PO SCH ×2 (07:47→22:10)
[2018-01-15] MEDS: THIAMINE HCL 100 MG TAB PO SCH (07:47)
[2018-01-15] MEDS: PANTOPRAZOLE SODIUM 40 MG TAB PO SCH ×2 (07:47→22:11)
[2018-01-15] MEDS: DIAZEPAM 5 MG TAB PO PRN ×3 (08:00→22:11)
[2018-01-15] MEDS: HYDROCODONE/APAP 5/325 TAB PO PRN (08:05)
[2018-01-15] MEDS: HYDROCORTISONE 1% CREAM TP SCH (08:07)
--- NOTE | 2018-01-15 10:23 | HOSPPROG ---
Hospitalist Progress Note Assessment/Plan: 27-year-old gentleman with history of alcohol dependence presenting initially with alcoholic pancreatitis with hospital course complicated by etoh w/d and MSSA bacteremia # MSSA bacteremia: 2/2 superficial septic thrombophlebitis related to peripheral IV, will require IV abx with cefazolin until at least 01/21, arms remain painful with some areas of induration but overall improving # bilateral septic superficial thrombophlebitis: oncology has weighed in and feels that this is likely due to inflammatory state related to pancreatitis rather than underlying predisposition to clotting so no need for ongoing AC but he does recommend lovenox ppx dosing for now # alcoholic pancreatitis: CT scan has shown resolution and sxs are improved, tolerating diet, has had this in the past as well # alcoholic hepatitis: LFTs have been trending down # alcohol use disorder, severe: with complications of pancreatitis in the past as well as withdrawal and w/d seizures, will continue to dependency counselor patient on importance of cessation # AGMA: secondary to alcohol ketoacidosis, resolved # anxiety/ptd/depression: prazosin, prn valium, seroquel at hs and all in all improving slept better with the increase seroquel dose # IP status cont abx therapy discussed anxiety treatment Subjective: FEeling better. Excersidedyesterday. Slept better. Objective: Vital Signs Temp Pulse Resp BP Pulse Ox 36.7 C 65 14 115/77 97 01/15/18 07:54 01/15/18 07:54 01/15/18 07:54 01/15/18 07:54 01/15/18 07:54 Microbiology 01/09/18 04:40 Blood Culture - Final Blood 01/09/18 04:56 Blood Culture - Final Blood Laboratory Results 01/09/18 04:40 01/09/18 04:40 01/14/18 01/15/18 01/16/18 05:59 05:59 05:59 Intake Total 2580 1800 Balance 2580 1800 - Physical Exam Constitutional: appears nourished, not in pain Eyes: PERRL, anicteric sclera Ears, Nose, Mouth, Throat: moist mucous membranes, hearing normal Cardiovascular: No JVD, No edema Respiratory: no respiratory distress, reduced air movement Gastrointestinal: No tenderness, No ascites Skin: warm, normal color Musculoskeletal: no joint effusions, generalized weakness Neurologic: AAOx3 Psychiatric: interacting appropriately, not encephalopathic, thought process linear ICD10 Worksheet Patient Problems: Problems Problem Status Onset Acute alcoholic pancreatitis Acute Alcohol withdrawal Acute Alcohol abuse Acute Alcoholic pancreatitis Acute
--- NOTE | 2018-01-15 16:12 | PCMIDPN ---
Assessment/Plan: Assessment/Plan: * MSSA bacteremia due to superficial thrombophlebitis with rapid clearance of blood cultures: Plan 2 weeks of IV cefazolin with stop date of 01/22/2016. Plan CBC and CMP in a.m. on antibiotic therapy. Continue supportive care for phlebitis. 01/15/18 16:10 Subjective: Patient with persistent bilateral forearm pain. No diarrhea. Objective: Vital Signs Temp Pulse Resp BP Pulse Ox 36.5 C 75 14 95/58 L 95 01/15/18 16:00 01/15/18 16:00 01/15/18 16:00 01/15/18 16:00 01/15/18 16:00 Laboratory Results 01/09/18 04:40 01/09/18 04:40 01/14/18 01/15/18 01/16/18 05:59 05:59 05:59 Intake Total 2580 1800 Balance 2580 1800 Cefazolin # 8 (end date 01/21/2018) - Physical Exam General Appearance: alert, no apparent distress EENT: No scleral icterus, No thrush, No conjunctival petechiae Respiratory: lungs clear, No respiratory distress Cardiac/Chest: regular rate, rhythm, No systolic murmur Extremities: inflammation (Residual thrombophlebitis in both forearms, right greater than left; no fluctuance) Abdomen: tender (Mild epigastric) ICD10 Worksheet Patient Problems: Problems Problem Status Onset Acute alcoholic pancreatitis Acute Alcohol withdrawal Acute Alcohol abuse Acute Alcoholic pancreatitis Acute
[2018-01-15] MEDS: NS 1,000 ML IV SCH (22:11)
[2018-01-15] MEDS: QUEtiapine FUMARATE 100 MG TAB PO SCH (22:11)
[2018-01-16] MEDS: HYDROCORTISONE 1% CREAM TP SCH ×3 (00:43→22:41)
[2018-01-16 05:32] LABS: PLATELET COUNT 474 10^3/uL (150-400)
[2018-01-16] MEDS: oxyCODONE IR 5 MG TAB PO PRN ×5 (05:51→22:15)
[2018-01-16] MEDS: ceFAZolin 2 GM/DEXTROSE 100 ML IV SCH ×3 (05:51→22:19)
[2018-01-16] MEDS: HYDROCODONE/APAP 5/325 TAB PO PRN (07:58)
[2018-01-16] MEDS: DIAZEPAM 5 MG TAB PO PRN ×3 (07:59→22:23)
[2018-01-16] MEDS: PRAZOSIN HCL 1 MG CAP PO SCH ×2 (08:01→22:15)
[2018-01-16] MEDS: PANTOPRAZOLE SODIUM 40 MG TAB PO SCH ×2 (08:01→22:16)
[2018-01-16] MEDS: THIAMINE HCL 100 MG TAB PO SCH (08:01)
[2018-01-16] MEDS: ENOXAPARIN 40 MG/0.4 ML SYR SC SCH (08:02)
[2018-01-16] MEDS: SENNOSIDES/DOCUSATE SODIUM TAB PO SCH ×2 (08:02→22:16)
[2018-01-16] MEDS: NICOTINE 21 MG/24 HR PATCH TD SCH (08:04)
[2018-01-16] MEDS: BENZOCAINE UNIT DOSE SPRAY HURRICAINE MM PRN (09:51)
--- NOTE | 2018-01-16 13:11 | HOSPPROG ---
Hospitalist Progress Note Assessment/Plan: 27-year-old gentleman with history of alcohol dependence presenting initially with alcoholic pancreatitis with hospital course complicated by etoh w/d and MSSA bacteremia # MSSA bacteremia: 2/2 superficial septic thrombophlebitis related to peripheral IV, will require IV abx with cefazolin until at least 01/21, arms remain painful with some areas of induration but overall improving # bilateral septic superficial thrombophlebitis: oncology has weighed in and feels that this is likely due to inflammatory state related to pancreatitis rather than underlying predisposition to clotting so no need for ongoing AC but he does recommend lovenox ppx dosing for now # alcoholic pancreatitis: CT scan has shown resolution and sxs are improved, tolerating diet, has had this in the past as well # alcoholic hepatitis: LFT's resolved # alcohol use disorder, severe: with complications of pancreatitis in the past as well as withdrawal and w/d seizures, will continue to career technical counselor patient on importance of cessation # AGMA: secondary to alcohol ketoacidosis, resolved # anxiety/ptd/depression: prazosin, prn valium, seroquel at hs and all in all improving slept better with the increase seroquel dose will need medications and follow up at time of DC # IP status cont abx therapy discussed anxiety treatment and future plans Subjective: Doing ok. Still having some pain in arms. Anxious about future. Objective: Vital Signs Temp Pulse Resp BP Pulse Ox 36.9 C 71 18 113/73 96 01/16/18 08:00 01/16/18 08:00 01/16/18 08:00 01/16/18 08:00 01/16/18 08:00 Laboratory Results 01/16/18 04:59 01/16/18 04:59 01/15/18 01/16/18 01/17/18 05:59 05:59 05:59 Intake Total 1800 500 Balance 1800 500 - Physical Exam Constitutional: no apparent distress, appears nourished Eyes: PERRL, anicteric sclera Ears, Nose, Mouth, Throat: moist mucous membranes, hearing normal Cardiovascular: No JVD, No edema Respiratory: no respiratory distress, reduced air movement Gastrointestinal: No tenderness, No ascites Skin: warm, normal color Musculoskeletal: no joint effusions, generalized weakness Neurologic: AAOx3 Psychiatric: not encephalopathic, thought process linear, anxious ICD10 Worksheet Patient Problems: Problems Problem Status Onset Acute alcoholic pancreatitis Acute Alcohol withdrawal Acute Alcohol abuse Acute Alcoholic pancreatitis Acute
[2018-01-16] MEDS: QUEtiapine FUMARATE 100 MG TAB PO SCH (22:16)
[2018-01-17] MEDS: ceFAZolin 2 GM/DEXTROSE 100 ML IV SCH ×3 (05:32→22:13)
[2018-01-17] MEDS: NS 1,000 ML IV SCH (05:33)
[2018-01-17] MEDS: oxyCODONE IR 5 MG TAB PO PRN ×5 (05:41→22:14)
[2018-01-17] MEDS: THIAMINE HCL 100 MG TAB PO SCH (08:49)
[2018-01-17] MEDS: SENNOSIDES/DOCUSATE SODIUM TAB PO SCH ×2 (08:49→22:15)
[2018-01-17] MEDS: PRAZOSIN HCL 1 MG CAP PO SCH ×2 (08:49→22:14)
[2018-01-17] MEDS: DIAZEPAM 5 MG TAB PO PRN ×3 (08:49→22:15)
[2018-01-17] MEDS: NICOTINE 21 MG/24 HR PATCH TD SCH (08:50)
[2018-01-17] MEDS: HYDROCODONE/APAP 5/325 TAB PO PRN (08:50)
[2018-01-17] MEDS: ENOXAPARIN 40 MG/0.4 ML SYR SC SCH (08:50)
[2018-01-17] MEDS: HYDROCORTISONE 1% CREAM TP SCH ×2 (08:51→23:02)
[2018-01-17] MEDS: PANTOPRAZOLE SODIUM 40 MG TAB PO SCH ×2 (09:11→22:14)
--- NOTE | 2018-01-17 09:26 | PCMIDPN ---
Assessment/Plan: 1. Low-grade MSSA bacteremia secondary to right forearm superficial thrombophlebitis: Blood cultures cleared rapidly. Treating for 2 weeks with high-dose cefazolin; stop date January 21. 2. Superficial thrombophlebitis left forearm peripheral IV site: Improving. 3. Miscellaneous: Patient is immune to hepatitis a, but hepatitis-B surface antibody is negative. Antibody titer has likely fallen below level of assay detection and needs boosting. Will give hepatitis B booster today. He will need serology checked in a month if feasible. Patient is also asking [facility] test [facility]. Will obtain T spot given phlebitis in both forearms. Subjective: In good spirits. No complaints. No diarrhea. Objective: Ancef 2 g IV q.8 hours, stop date January 21 Vital Signs Temp Pulse Resp BP Pulse Ox 36.8 C 73 16 110/68 95 01/17/18 07:31 01/17/18 07:31 01/17/18 07:31 01/17/18 07:31 01/17/18 07:31 Laboratory Results 01/16/18 04:59 01/16/18 04:59 01/16/18 01/17/18 01/18/18 05:59 05:59 05:59 Intake Total 500 Balance 500 Safety labs on antibiotics within normal limits - Physical Exam General Appearance: alert, no apparent distress EENT: pharynx normal, No thrush Respiratory: lungs clear Extremities: other (Palpable cord bilateral forearms, more prominent right forearm, but no fluctuance or erythema. Still quite tender) Abdomen: non-tender, soft ICD10 Worksheet Patient Problems: Problems Problem Status Onset Alcohol abuse Acute Alcohol withdrawal Acute Alcoholic pancreatitis Acute Acute alcoholic pancreatitis Acute
[2018-01-17] MEDS ORDERED: HEPATITIS B VIRUS VACCINE-PF 20 MCG/ML INJ IM ONE (09:30)
--- NOTE | 2018-01-17 11:22 | HOSPPROG ---
Hospitalist Progress Note Assessment/Plan: 27-year-old gentleman with history of alcohol dependence presenting initially with alcoholic pancreatitis with hospital course complicated by etoh w/d and MSSA bacteremia # MSSA bacteremia: 2/2 superficial septic thrombophlebitis related to peripheral IV -IV abx through 01/21 # bilateral septic superficial thrombophlebitis: oncology has weighed in and feels that this is likely due to inflammatory state related to pancreatitis rather than underlying predisposition to clotting so no need for ongoing AC but he does recommend lovenox ppx dosing for now *right molar tooth pain w tooth loss -spoke with Dr Tellez and he will come evaluate Tim's tooth today # alcoholic pancreatitis: CT scan has shown resolution and sxs are improved, tolerating diet, has had this in the past as well # alcoholic hepatitis: LFT's resolved # alcohol use disorder, severe -no s/sx of withdrawal, he knows this is a problem #pancreatitis -resolved -eating and drinking well # AGMA: secondary to alcohol ketoacidosis, resolved # anxiety/ptd/depression: prazosin, prn Valium, seroquel at hs and all in all improving decreased valium dose today and prn pain medications #plan: appreciate Dr Tellez, if indicated, ok to remove tooth, reviewed this w ID and they are fine w tooth removal. Subjective: Tim said his right molar is causing significant pain. Objective: Vital Signs Temp Pulse Resp BP Pulse Ox 36.8 C 73 16 110/68 95 01/17/18 07:31 01/17/18 07:31 01/17/18 07:31 01/17/18 07:31 01/17/18 07:31 Laboratory Results 01/16/18 04:59 01/16/18 04:59 01/16/18 01/17/18 01/18/18 05:59 05:59 05:59 Intake Total 500 Balance 500 - Physical Exam Constitutional: appears nourished, uncomfortable, No not in pain Eyes: PERRL Ears, Nose, Mouth, Throat: hearing normal Respiratory: no respiratory distress Skin: warm, other (r forearm area with some redness and warmth, tender w palp) Neurologic: AAOx3 Psychiatric: interacting appropriately ICD10 Worksheet Patient Problems: Problems Problem Status Onset Alcohol abuse Acute Alcohol withdrawal Acute Alcoholic pancreatitis Acute Acute alcoholic pancreatitis Acute
--- NOTE | 2018-01-17 16:41 | ASMTCMCOM ---
CM Note CM Note Notes: Spoke w/RN, pt is having tooth pain. Oral surgeon to see, may go to OR, CM will f/u in the am. DC Plan: Independent Date Signed: 01/17/2018 04:38 PM Electronically Signed By:Melina Tracy RN
--- NOTE | 2018-01-17 18:00 | SOAPPROG ---
SOAP Progress Note Assessment/Plan: s: asked to consult on this 27 yo male with tooth pain tooth # 32 fx and painful with cold and sweets Exam: no swelling or any sign of infection. caries on #32, no mobility, some pain on palpation. a/p 1- no acute infection noted. 2- recommend pain meds and send to my office on discharge ( call [phone] and schedule to have tooth extracted sunday on discharge) 3- consult again if need any help between now and jan 22 discharge. [place] [phone] (c) [phone](office *) Plan: 01/17/18 17:54 Objective: Vital Signs Temp Pulse Resp BP Pulse Ox 36.7 C 68 16 99/62 L 95 01/17/18 16:00 01/17/18 16:00 01/17/18 16:00 01/17/18 16:00 01/17/18 16:00 Laboratory Results 01/16/18 04:59 01/16/18 04:59 01/16/18 01/17/18 01/18/18 05:59 05:59 05:59 Intake Total 500 Balance 500 ICD10 Worksheet Patient Problems: Problems Problem Status Onset Alcohol abuse Acute Alcohol withdrawal Acute Alcoholic pancreatitis Acute Acute alcoholic pancreatitis Acute
[2018-01-17] MEDS: QUEtiapine FUMARATE 100 MG TAB PO SCH (22:14)
[2018-01-18] MEDS: oxyCODONE IR 5 MG TAB PO PRN ×5 (03:56→22:23)
[2018-01-18] MEDS: ceFAZolin 2 GM/DEXTROSE 100 ML IV SCH ×3 (05:33→21:43)
[2018-01-18] MEDS: DIAZEPAM 5 MG TAB PO PRN ×2 (08:25→21:42)
[2018-01-18] MEDS: NICOTINE 21 MG/24 HR PATCH TD SCH (08:27)
[2018-01-18] MEDS: SENNOSIDES/DOCUSATE SODIUM TAB PO SCH ×2 (08:28→21:42)
[2018-01-18] MEDS: THIAMINE HCL 100 MG TAB PO SCH (08:28)
[2018-01-18] MEDS: ENOXAPARIN 40 MG/0.4 ML SYR SC SCH (08:28)
[2018-01-18] MEDS: PANTOPRAZOLE SODIUM 40 MG TAB PO SCH ×2 (08:29→21:42)
[2018-01-18] MEDS: PRAZOSIN HCL 1 MG CAP PO SCH ×2 (08:29→21:42)
[2018-01-18] MEDS: HYDROCORTISONE 1% CREAM TP SCH ×2 (08:40→21:46)
--- NOTE | 2018-01-18 09:37 | PCMIDPN ---
Assessment/Plan: 1. Low-grade MSSA bacteremia secondary to right forearm superficial thrombophlebitis: Blood cultures cleared rapidly. Treating for 2 weeks with high-dose cefazolin; stop date January 21. Infectious Diseases will sign off. Patient will be discharged on Sunday. No follow-up necessary. Please call with questions. Thank you! 2. Superficial thrombophlebitis left forearm peripheral IV site: Improving. Objective: Vital Signs Temp Pulse Resp BP Pulse Ox 36.5 C 70 16 103/70 95 01/18/18 07:58 01/18/18 07:58 01/18/18 07:58 01/18/18 07:58 01/18/18 07:58 Laboratory Results 01/16/18 04:59 01/16/18 04:59 01/17/18 01/18/18 01/19/18 05:59 05:59 05:59 Intake Total 500 Balance 500 ICD10 Worksheet Patient Problems: Problems Problem Status Onset Alcohol abuse Acute Alcohol withdrawal Acute Alcoholic pancreatitis Acute Acute alcoholic pancreatitis Acute
[2018-01-18] MEDS: BENZOCAINE UNIT DOSE SPRAY HURRICAINE MM PRN ×2 (12:29→22:24)
--- NOTE | 2018-01-18 14:06 | ASMTCMCOM ---
CM Note CM Note Notes: Spoke w/pt re; dc poc. Pt will dc to a bed at the [facility], states has done paperwork for coordinated entry. He also has made an appt with a dentist to have a tooth pulled, on Sunday the at 2:30. DC Plan: [facility] Date Signed: 01/18/2018 02:05 PM Electronically Signed By:Melina Tracy RN
[2018-01-18] MEDS: NS 1,000 ML IV SCH (15:03)
--- NOTE | 2018-01-18 15:11 | HOSPPROG ---
Hospitalist Progress Note Assessment/Plan: 27-year-old gentleman with history of alcohol dependence presenting initially with alcoholic pancreatitis with hospital course complicated by etoh w/d and MSSA bacteremia # MSSA bacteremia: 2/2 superficial septic thrombophlebitis related to peripheral IV -IV abx through 01/21 (can dc in the morning) # bilateral septic superficial thrombophlebitis: oncology has weighed in and feels that this is likely due to inflammatory state related to pancreatitis rather than underlying predisposition to clotting so no need for ongoing AC but he does recommend lovenox ppx dosing for now *right molar tooth pain w tooth loss (tooth #32 w fx) -spoke with Dr Tellez and he will remove Tim's tooth is his office on Sunday, RN gave Tim the # to schedule the appt # alcoholic pancreatitis: CT scan has shown resolution and sxs are improved, tolerating diet # alcoholic hepatitis: LFT's resolved # alcohol use disorder, severe -no s/sx of withdrawal, he knows this is a problem #pancreatitis -resolved -eating and drinking well # AGMA: secondary to alcohol ketoacidosis, resolved # anxiety/ptd/depression: prazosin, prn Valium, seroquel at hs and all in all improving decreased Valium dose and prn pain medications he has been walking and getting outside which has helped his depression #plan: reviewed his care w Dr Funes, plan is for dc Sunday morning w f/u with Dr Tellez Subjective: Tim said he is feeling better, still having some tooth pain. Objective: Vital Signs Temp Pulse Resp BP Pulse Ox 36.8 C 83 16 98/52 L 94 01/18/18 14:40 01/18/18 14:40 01/18/18 14:40 01/18/18 14:40 01/18/18 14:40 Laboratory Results 01/16/18 04:59 01/16/18 04:59 01/17/18 01/18/18 01/19/18 05:59 05:59 05:59 Intake Total 500 Balance 500 - Physical Exam Constitutional: no apparent distress, appears nourished Eyes: PERRL Ears, Nose, Mouth, Throat: hearing normal Respiratory: no respiratory distress Skin: warm, other (phlebitis is better) Musculoskeletal: full muscle strength Neurologic: AAOx3 Psychiatric: interacting appropriately, not anxious ICD10 Worksheet Patient Problems: Problems Problem Status Onset Alcohol abuse Acute Alcohol withdrawal Acute Alcoholic pancreatitis Acute Acute alcoholic pancreatitis Acute
[2018-01-18] MEDS: QUEtiapine FUMARATE 100 MG TAB PO SCH (21:43)
[2018-01-19] MEDS: oxyCODONE IR 5 MG TAB PO PRN ×5 (02:53→20:19)
[2018-01-19] MEDS: ceFAZolin 2 GM/DEXTROSE 100 ML IV SCH ×3 (05:17→21:17)
[2018-01-19] MEDS: DIAZEPAM 5 MG TAB PO PRN ×3 (08:23→23:10)
[2018-01-19] MEDS: NICOTINE 21 MG/24 HR PATCH TD SCH (08:24)
[2018-01-19] MEDS: PANTOPRAZOLE SODIUM 40 MG TAB PO SCH ×2 (08:24→20:19)
[2018-01-19] MEDS: THIAMINE HCL 100 MG TAB PO SCH (08:24)
[2018-01-19] MEDS: PRAZOSIN HCL 1 MG CAP PO SCH ×2 (08:24→23:10)
[2018-01-19] MEDS: ENOXAPARIN 40 MG/0.4 ML SYR SC SCH (08:24)
[2018-01-19] MEDS: SENNOSIDES/DOCUSATE SODIUM TAB PO SCH ×2 (08:24→20:19)
[2018-01-19] MEDS: HYDROCORTISONE 1% CREAM TP SCH ×2 (08:25→20:22)
--- NOTE | 2018-01-19 12:14 | HOSPPROG ---
Hospitalist Progress Note Assessment/Plan: 27-year-old gentleman with history of alcohol dependence presenting initially with alcoholic pancreatitis with hospital course complicated by etoh w/d and MSSA bacteremia # MSSA bacteremia: 2/2 superficial septic thrombophlebitis related to peripheral IV -IV abx through 01/21 (can dc in the morning) # bilateral septic superficial thrombophlebitis: oncology has weighed in and feels that this is likely due to inflammatory state related to pancreatitis rather than underlying predisposition to clotting so no need for ongoing AC but he does recommend lovenox ppx dosing for now *right molar tooth pain w tooth loss (tooth #32 w fx) -spoke with Dr Tellez and he will remove Tim's tooth is his office on Sunday, RN gave Tim the # to schedule the appt # alcoholic pancreatitis: CT scan has shown resolution and sxs are improved, tolerating diet # alcoholic hepatitis: LFT's resolved # alcohol use disorder, severe -no s/sx of withdrawal, he knows this is a problem #pancreatitis -resolved -eating and drinking well # AGMA: secondary to alcohol ketoacidosis, resolved # anxiety/ptd/depression: prazosin, prn Valium, seroquel at hs and all in all improving decreased Valium dose and prn pain medications he has been walking and getting outside which has helped his depression #plan: dc Sunday morning to [facility], dentist appt Sunday. Tim is very motivated to never drink, get a job. Subjective: Tim is very upbeat and has no complaints. Objective: Vital Signs Temp Pulse Resp BP Pulse Ox 36.6 C 69 16 107/87 H 97 01/19/18 08:00 01/19/18 08:00 01/19/18 08:00 01/19/18 08:00 01/19/18 08:00 Laboratory Results 01/16/18 04:59 01/16/18 04:59 - Physical Exam Constitutional: no apparent distress, appears nourished, not in pain Eyes: PERRL Ears, Nose, Mouth, Throat: hearing normal Respiratory: no respiratory distress Skin: warm Musculoskeletal: full muscle strength Neurologic: AAOx3 Psychiatric: interacting appropriately ICD10 Worksheet Patient Problems: Problems Problem Status Onset Alcohol abuse Acute Alcohol withdrawal Acute Alcoholic pancreatitis Acute Acute alcoholic pancreatitis Acute
[2018-01-19] MEDS: BENZOCAINE UNIT DOSE SPRAY HURRICAINE MM PRN (20:21)
[2018-01-19] MEDS: QUEtiapine FUMARATE 100 MG TAB PO SCH (23:10)
[2018-01-20] MEDS: oxyCODONE IR 5 MG TAB PO PRN ×3 (00:33→10:24)
[2018-01-20] MEDS: NS 1,000 ML IV SCH (03:42)
[2018-01-20] MEDS: ceFAZolin 2 GM/DEXTROSE 100 ML IV SCH ×2 (05:24→13:13)
[2018-01-20] MEDS: THIAMINE HCL 100 MG TAB PO SCH (09:59)
[2018-01-20] MEDS: NICOTINE 21 MG/24 HR PATCH TD SCH (09:59)
[2018-01-20] MEDS: PRAZOSIN HCL 1 MG CAP PO SCH ×2 (09:59→22:16)
[2018-01-20] MEDS: ENOXAPARIN 40 MG/0.4 ML SYR SC SCH (09:59)
[2018-01-20] MEDS: PANTOPRAZOLE SODIUM 40 MG TAB PO SCH ×2 (09:59→22:16)
[2018-01-20] MEDS: SENNOSIDES/DOCUSATE SODIUM TAB PO SCH ×2 (09:59→22:16)
[2018-01-20] MEDS: HYDROCORTISONE 1% CREAM TP SCH ×2 (10:00→22:18)
[2018-01-20] MEDS: DIAZEPAM 5 MG TAB PO PRN (10:24)
--- NOTE | 2018-01-20 12:21 | PCMIDPN ---
Assessment/Plan: Assessment/Plan: * MSSA bacteremia due to superficial thrombophlebitis with rapid clearance of blood cultures: Continues to have pain related to phlebitis. Giving ongoing symptoms, will discontinue cefazolin today and remove peripheral IV with goal of minimizing phlebitis. Has received 13/14 days of cefazolin. 01/20/18 12:19 Subjective: Asked to re-evaluate patient with worsening bilateral arm pain versus last 2 days. Patient complains of bilateral forearm pain. Does not note significantly worse than prior. Objective: Vital Signs Temp Pulse Resp BP Pulse Ox 36.8 C 70 12 122/84 H 98 01/20/18 08:00 01/20/18 08:00 01/20/18 08:00 01/20/18 08:00 01/20/18 08:00 Laboratory Results 01/16/18 04:59 01/16/18 04:59 01/19/18 01/20/18 01/21/18 06:59 05:59 05:59 Intake Total Balance Cefazolin (end date 01/21/2018) - Physical Exam General Appearance: alert, no apparent distress, non-toxic Extremities: inflammation (Bilateral forearm edema and tenderness without significant interval change; no active cellulitis) ICD10 Worksheet Patient Problems: Problems Problem Status Onset Alcohol abuse Acute Alcohol withdrawal Acute Alcoholic pancreatitis Acute Acute alcoholic pancreatitis Acute
--- NOTE | 2018-01-20 12:40 | HOSPPROG ---
Hospitalist Progress Note Assessment/Plan: 27-year-old gentleman with history of alcohol dependence presenting initially with alcoholic pancreatitis with hospital course complicated by etoh w/d and MSSA bacteremia # MSSA bacteremia: 2/2 superficial septic thrombophlebitis related to peripheral IV -IV abx through this afternoon, has ongoing thrombophlebitis (reviewed his care w Dr Carrillo) # bilateral septic superficial thrombophlebitis: oncology has weighed in and feels that this is likely due to inflammatory state related to pancreatitis rather than underlying predisposition to clotting so no need for ongoing AC but he does recommend lovenox ppx dosing for now *right molar tooth pain w tooth loss (tooth #32 w fx) -spoke with Dr Tellez and he will remove Tim's tooth is his office on Sunday # alcoholic pancreatitis: CT scan has shown resolution and sxs are improved, tolerating diet # alcoholic hepatitis: LFT's resolved # alcohol use disorder, severe -no s/sx of withdrawal, he knows this is a problem #pancreatitis -resolved -eating and drinking well # AGMA: secondary to alcohol ketoacidosis, resolved # anxiety/ptd/depression: prazosin, prn Valium, seroquel at hs and all in all improving decreased Valium dose and prn pain medications he has been walking and getting outside which has helped his depression #plan: dc Sunday morning to [facility], dentist appt Sunday. dc Valium and pain medications, have told Tim he won't be discharged on these medications Subjective: Tim said his arms hurt, his tooth hurts. Objective: Vital Signs Temp Pulse Resp BP Pulse Ox 36.8 C 70 12 122/84 H 98 01/20/18 08:00 01/20/18 08:00 01/20/18 08:00 01/20/18 08:00 01/20/18 08:00 Laboratory Results 01/16/18 04:59 01/16/18 04:59 01/19/18 01/20/18 01/21/18 06:59 05:59 05:59 Intake Total Balance - Physical Exam Constitutional: uncomfortable, No not in pain Eyes: PERRL Ears, Nose, Mouth, Throat: hearing normal Respiratory: no respiratory distress Skin: other (arms with swelling, not red or warm, can palpate the veins on right arm and are firm) Musculoskeletal: full muscle strength Neurologic: AAOx3 Psychiatric: interacting appropriately, other (bit withdrawn today) ICD10 Worksheet Patient Problems: Problems Problem Status Onset Alcohol abuse Acute Alcohol withdrawal Acute Alcoholic pancreatitis Acute Acute alcoholic pancreatitis Acute
[2018-01-20] MEDS ORDERED: IBUPROFEN 600 MG TAB PO PRN (15:00)
[2018-01-20] MEDS: QUEtiapine FUMARATE 100 MG TAB PO SCH (22:16)
[2018-01-21 07:53] VITALS: BP 119/90
--- NOTE | 2018-01-21 09:43 | HOSPPROG ---
Hospitalist Progress Note Assessment/Plan: 27-year-old gentleman with history of alcohol dependence presenting initially with alcoholic pancreatitis with hospital course complicated by etoh w/d and MSSA bacteremia # MSSA bacteremia: 2/2 superficial septic thrombophlebitis related to peripheral IV -treated w antibiotics # bilateral septic superficial thrombophlebitis: oncology has weighed in and feels that this is likely due to inflammatory state related to pancreatitis rather than underlying predisposition to clotting so no need for ongoing AC but he does recommend lovenox ppx dosing for now *right molar tooth pain w tooth loss (tooth #32 w fx) -spoke with Dr Tellez and he will remove Tim's tooth is his office on Sunday -confirmed this again today # alcoholic pancreatitis: CT scan has shown resolution and sxs are improved, tolerating diet # alcoholic hepatitis: LFT's resolved # alcohol use disorder, severe -no s/sx of withdrawal, he knows this is a problem #pancreatitis -resolved -eating and drinking well # AGMA: secondary to alcohol ketoacidosis, resolved # anxiety/ptd/depression: prazosin, prn Valium, seroquel at hs and all in all improving decreased Valium dose and prn pain medications he has been walking and getting outside which has helped his depression #plan: dc today with place [facility] the [facility], has a dental appt, has a f/u appt, scripts filled, chest x ray shows no s/sx of any TB Subjective: Tim is tearful about being dc, worried about dentist, f/u care, place to live. Objective: Vital Signs Temp Pulse Resp BP Pulse Ox 36.6 C 88 16 119/90 H 96 01/21/18 07:51 01/21/18 07:51 01/21/18 07:51 01/21/18 07:51 01/21/18 07:51 Laboratory Results 01/16/18 04:59 01/16/18 04:59 01/20/18 01/21/18 01/22/18 05:59 05:59 05:59 Intake Total Balance - Physical Exam Constitutional: uncomfortable Eyes: PERRL Ears, Nose, Mouth, Throat: hearing normal Respiratory: no respiratory distress Skin: warm, other (bilateral forearms with less swelling, cont to be tender) Neurologic: AAOx3 Psychiatric: anxious ICD10 Worksheet Patient Problems: Problems Problem Status Onset Alcohol abuse Acute Alcohol withdrawal Acute Alcoholic pancreatitis Acute Acute alcoholic pancreatitis Acute
[2018-01-21] MEDS: HYDROCORTISONE 1% CREAM TP SCH (10:55)
[2018-01-21] MEDS: ENOXAPARIN 40 MG/0.4 ML SYR SC SCH (10:55)
[2018-01-21] MEDS: PANTOPRAZOLE SODIUM 40 MG TAB PO SCH (10:56)
[2018-01-21] MEDS: NICOTINE 21 MG/24 HR PATCH TD SCH (10:56)
[2018-01-21] MEDS: ACETAMINOPHEN 325 MG TAB PO PRN (11:00)
[2018-01-21] MEDS: SENNOSIDES/DOCUSATE SODIUM TAB PO SCH ×2 (11:00→11:01)
[2018-01-21] MEDS: PRAZOSIN HCL 1 MG CAP PO SCH (11:01)
[2018-01-21] MEDS: THIAMINE HCL 100 MG TAB PO SCH (11:01)
--- NOTE | 2018-01-21 12:07 | ASMTCMCOM ---
CM Note CM Note Notes: Patient states he has not done the paperwork for coordinated entry. Have attempted to call [facility] all morning, leaving messages and have not gotten a return response. Reserved a [facility] bed but they state the beds are reserved for [facility]. Contacted [facility] who is checking on the [facility] bed reservation. Patient will get an xray for TB for the [facility]. Set up a follow up appointment with [facility] for patient for January at 9:[address] Freedom Swift. Gave patient the appointment time, the location of the clinic, and a phone number if he has to cancel. He was also given the list of things he needs to take to his appointment including a picture ID, insurance card, and his current medications.Patient was also given a bus pass to get to the [facility] today. We will await the results of patient's x-ray and a call back from [facility] regarding the [facility] bed. Patient's medications have been mapped. CM will follow. Date Signed: 01/21/2018 12:00 PM Electronically Signed By:Kristen Guerra LCSW
--- NOTE | 2018-01-21 14:23 | ASMTDCNOTE ---
Case Management Discharge Discharge Order Complete? Answers: Yes Patient to Obtain Answers: via MAP Medications Transportation Arranged Answers: Bus Tokens Discharge Comments Notes: Patient is discharging today to the [facility] where we have reserved a bed. Patient's medications were mapped and an appointment was set up for him with [facility] for January at 9:[address] Freedom Swift. Patient was given a bus pass to get [facility]. [facility] did not contact us back about patient having a bed there. Encouraged him to go there or ask at [facility] if they have reserved a bed for him. If they haven't he can go to the [facility] where a hospital bed has been reserved. 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 ([facility] was out of one of his) No further needs. Date Signed: 01/21/2018 02:01 PM Electronically Signed By:Kristen Guerra LCSW
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
--- NOTE | 2018-01-21 15:04 | GDS ---
DISCHARGE DIAGNOSES: 1. Methicillin-susceptible Staphylococcus aureus bacteremia secondary to superficial septic thrombophlebitis related to peripheral IV. 2. Bilateral septic superficial thrombophlebitis. 3. Right tooth pain, tooth #32. 4. Alcoholic pancreatitis. 5. Alcoholic hepatitis. 6. Alcohol use disorder. 7. Anion gap metabolic acidosis. 8. Anxiety, posttraumatic disorder, depression. CONSULTATIONS: 1. Dr. Maylin Bruce. 2. Dr. Nakul Blas. 3. Dr. Tellez. HISTORY: Briefly, the patient is a 27-year-old male who was initially admitted for abdominal pain, nausea, and vomiting attributed to pancreatitis. He has a past medical history of alcohol abuse, who was free of alcohol until the recent of his 43-year-old mother. He improved in regard to his pancreatitis. He started having fevers on January 06. Blood cultures were checked, and he ended up growing MSSA. He was started on IV Ancef with improvement. HOSPITAL COURSE: 1. Methicillin-susceptible Staphylococcus aureus bacteremia secondary to superficial septic thrombophlebitis related to peripheral IV. Received treatment 2. Right molar tooth pain with tooth loss. He has an appointment scheduled tomorrow to get the tooth removed. 3. Alcoholic pancreatitis. He had a repeat CT scan that showed resolution. 4. Alcoholic hepatitis. LFTs improved. 5. Severe alcohol use disorder. He has had no signs or symptoms of withdrawal. 6. Anion gap metabolic acidosis, resolved. 7. Anxiety, posttraumatic stress disorder, and depression. He has been started on Minipress, as well as Seroquel with improvement. DISCHARGE CONDITION: Stable. Blood pressure is 119/90. Respiratory rate is 16. Pulse is 88. Temperature is 36.6 Celsius. O2 saturation on room air 96%. DISCHARGE MEDICATIONS: Please see the EMR. DISCHARGE INSTRUCTIONS: 1. To see Dr. Tellez tomorrow at 2:20. 2. He has an appointment with Dr. Freedom Swift on morning at 9:30 to get followup care. 3. To talk to Dr. Swift about his medications for his anxiety and PTSD. Scripts were filled for him until he has his follow up appointment. 4. To not drink alcohol. Greater than 30 minutes discharging and coordinating the patient's care. Copy requested to: Dr. Tellez /[id number]/MODL MTDD
== END 2018-01-21 14:10 | disposition other institution (70) | DRG 282 ==
LOC: EDUNIT# → F3E 01-04 00:25
PROVIDERS: ADMIT Family Medicine; ATTEND Family Medicine
DX: K85.20 Alcohol induced acute pancreatitis without necrosis or infection (principal); K70.10 Alcoholic hepatitis without ascites; F10.20 Alcohol dependence, uncomplicated; E87.2 Acidosis; T82.868A Thrombosis due to vascular prosthetic devices, implants and grafts, initial encounter; R78.81 Bacteremia; B95.61 Methicillin susceptible Staphylococcus aureus infection as the cause of diseases classified elsewhere; K08.89 Other specified disorders of teeth and supporting structures; K03.81 Cracked tooth; K02.9 Dental caries, unspecified; F43.10 Post-traumatic stress disorder, unspecified; I10 Essential (primary) hypertension; F17.210 Nicotine dependence, cigarettes, uncomplicated; Z59.0 Homelessness
CPT/HCPCS: 80305; 80307; 86704-90; 86708-90; 86709-90; 96374; 97161-GP; G0010; G0472; G0480; J0690; J1170; J1650; J1885; J2060; J3411; Q9967

== ENCOUNTER 2018-03-18 20:15 | Emergency (ER) | payer MEDICAID ==
--- NOTE | 2018-03-18 20:17 | EDPHY ---
H & P Time Seen by Provider: 03/18/18 20:17 - Medical/Surgical History Hx Asthma: No Hx Chronic Respiratory Disease: No Hx Diabetes: No Hx Cardiac Disease: No Hx Renal Disease: No Hx Cirrhosis: No Hx Alcoholism: No Hx HIV/AIDS: No Hx Splenectomy or Spleen Trauma: No Other PMH: HTN, anxiety, PTSD, ETOH - Social History Smoking Status: Current every day smoker Constitutional: Initial Vital Signs Temperature (C) 36.8 C 03/18/18 20:21 Heart Rate 114 H 03/18/18 20:21 Respiratory Rate 18 03/18/18 20:21 Blood Pressure 129/91 H 03/18/18 20:21 O2 Sat (%) 92 03/18/18 20:21 O2 Delivery Mode Room Air Allergies/Adverse Reactions: gabapentin [From Neurontin] Allergy (Verified 03/18/18 20:20) Medical Decision Making ED Course/Re-evaluation: CHIEF COMPLAINT: Alcohol withdrawal seizure HISTORY OF PRESENT ILLNESS: The patient is a chronic alcoholic arriving via EMS after having an alcohol withdrawal seizure tonight. He denies biting his tongue or incontinence. He reports that Librium does not help his seizures and he would rather be discharged to the senior living and not the [facility]. Patient drinks on a daily basis and obtains whatever alcohol is available. Patient has had multiple ER visits over the last several years for the same complaint. Patient denies any other injuries and denies any recent trauma. Patient denies co- ingestion. Patient denies suicidal or homicidal behavior. REVIEW OF SYSTEMS: A comprehensive 10 system review of systems is otherwise negative aside from elements mentioned in the history of present illness and medical decision making. PHYSICAL EXAM: General Appearance: Alert, well hydrated, appropriate, and non-toxic appearing. Head: Atraumatic without scalp tenderness or obvious injury Eyes: Pupils equal, round, reactive to light and accommodation, EOMI, no trauma , no injection. Ears: Clear bilaterally, no perforation, normal landmarks Nose: Atraumatic, no rhinorrhea, clear. Throat: There is no erythema or exudates, no lesions, normal tonsils, mucus membranes moist. Neck: Supple, 2+ carotid upstroke, nontender, no lymphadenopathy. Respiratory: No retractions, no distress, no wheezes, and no accessory muscle use. Lungs are clear to auscultation bilaterally. Cardiovascular: Regular rate and rhythm, no murmurs, rubs, or gallops. Bilateral carotid, radial, dorsalis pedis, and posterior tibial pulses intact. Good capillary refill all extremities. Gastrointestinal: Abdomen is soft, nontender, non-distended, no masses, no rebound, no guarding, no peritoneal signs. Musculoskeletal: Normal active ROM of all extremities, atraumatic. Neurological: Alert, appropriate, and interactive. The patient has normal DTRs and non-focal cranial nerves, motor, sensory, and cerebellar exam. Skin: No rashes, good turgor, no nodules on palpation. PAST MEDICAL HISTORY: Hypertension, anxiety, PTSD, alcoholism with withdrawal seizures PAST SURGICAL HISTORY: Denies SOCIAL HISTORY: Transient, single, not employed DIAGNOSTICS/PROCEDURES/CRITICAL CARE TIME: Not indicated DIFFERENTIAL DIAGNOSIS: The differential diagnosis for the patient's seizure included but was not limited to electrolyte abnormality, alcohol withdrawal, medication noncompliance , head injury, LEATHER PRODUCTION ARTISAN structural abnormality, and break through seizure. MEDICAL DECISION MAKING: I serially examined this patient since the patient's arrival here in the emergency department. He has a normal physical exam and is refusing Librium after an alcohol withdrawal seizure. He is declining being sent to the [facility] and is requesting to go back to the senior living. 2mg PO Ativan and 4mg PO administered. I have also given him an additional Ativan and Zofran to go home with. Return precautions provided; patient is comfortable with this plan. The patient still denies any trauma, any head injury, and any illicit drug use. Departure - Departure Disposition: Home, Routine, Self-Care Clinical Impression: Alcohol withdrawal Qualifiers: Complication of substance-induced condition: with unspecified complication Qualified Code(s): F10.239 - Alcohol dependence with withdrawal, unspecified Alcohol withdrawal seizure Qualifiers: Complication of substance-induced condition: uncomplicated Qualified Code(s): F10.230 - Alcohol dependence with withdrawal, uncomplicated Condition: Good Instructions: Alcohol Withdrawal (ED) Additional Instructions: 1. Take Ativan and Zofran as prescribed. 2. Please refrain from abusing alcohol. 3. Return to the emergency department immediately for fever, vomiting, confusion , headache, abdominal pain or other worsening of condition. 4. Followup with your primary care physician within 72 hours for reevaluation. Referrals: [facility],. [Clinic] - As per Instructions Report Scribed for: Kristofer Davila Report Scribed by: Audra Lance Date of Report: 03/18/18 Time of Report: 20:21
[2018-03-18] MEDS ORDERED: LORazepam 1 MG TAB PO ONE (20:23)
[2018-03-18] MEDS ORDERED: LORAZEPAM 1 MG PREPACK#4 BTL TAKEHOME ONE (20:23)
[2018-03-18 20:25] VITALS: BP 129/91
[2018-03-18] MEDS ORDERED: ONDANSETRON DISINTEGRATING 4 MG TAB PO ONE (20:29)
[2018-03-18] MEDS ORDERED: ONDANSETRON 4MG PREPACK#2 BTL TAKEHOME ONE (20:29)
== END 2018-03-18 20:53 | disposition home or self-care (01) ==
LOC: EDUNIT#
DX: F10.230 Alcohol dependence with withdrawal, uncomplicated (principal); I10 Essential (primary) hypertension; F41.9 Anxiety disorder, unspecified; F17.200 Nicotine dependence, unspecified, uncomplicated

== ENCOUNTER 2018-06-05 08:11 | Inpatient (IN) | payer MEDICAID ==
--- NOTE | 2018-06-05 08:10 | EDPHY ---
H & P Time Seen by Provider: 06/05/18 08:10 HPI/ROS: CHIEF COMPLAINT: Seizure, right elbow pain HISTORY OF PRESENT ILLNESS: Previous history of bipolar disorder and anxiety and alcoholism. Patient says he has had 2 previous alcohol withdrawal seizures. He had a seizure today about 12 hr after his last drink, at 6:00 a.m.. EMS was called and patient declined transport. He returns now by EMS complaining of right elbow pain and left knee pain. Elbow pain is worse with movement, mild. Started after the seizure. REVIEW OF SYSTEMS: Eye: no change in vision ENT: no sore throat Cardiac: no chest pain or syncope Pulmonary: no cough or SOB Abdomen: no vomiting, diarrhea, abdominal pain Musculoskeletal: HPI Skin: no rash Neuro: no headache Constitutional: no fever : no urinary symptoms A comprehensive 10 point review of systems is otherwise negative aside from elements mentioned in the history of present illness. PAST MEDICAL HISTORY: Bipolar, anxiety, alcoholism with previous seizure but never had cranial imaging Social history: No alcohol for past 12 hr General Appearance: Alert and conversant, cooperative. Eyes: No scleral icterus. ENT, Mouth: Tongue abrasion Respiratory: Normal respiratory effort, breath sounds equal, lungs are clear to auscultation. Cardiovascular: Regular rate and rhythm. Gastrointestinal: Abdomen is soft and non tender. Neurological: Alert, face symmetric, normal motor and sensory in extremities. Resting tremor. Skin: Bruising on the left elbow Musculoskeletal: Pain to palpation on the left patella and on the olecranon process of the right elbow, cannot fully extend the right arm at the elbow. Left knee is stable to varus and valgus negative Timur's. No spinal tenderness. Psychiatric: Not agitated. Emergency Department course/MDM: 1 mg IV Ativan for tremor 2 mg IV Ativan for tremor. 2 mg additional IV Ativan for tremor at 9:53 a.m.. Results discussed the patient. Contusion but no fracture seen. 1109: Still tremulous, additional 2 mg IV Ativan, admission for alcohol withdrawal. Constitutional: Initial Vital Signs Temperature (C) 36.8 C 06/05/18 08:11 Heart Rate 90 06/05/18 08:11 Blood Pressure 134/92 H 06/05/18 08:11 O2 Sat (%) 92 06/05/18 08:11 O2 Delivery Mode Nasal Cannula Allergies/Adverse Reactions: gabapentin [From Neurontin] Allergy (Verified 03/18/18 20:20) Home Medications: Medication Instructions Recorded NK [No Known Home Meds] 06/05/18 Medical Decision Making - Diagnostics Imaging Results: Imaging Impressions Elbow X-Ray 06/05/18 08:16 Impression: 1. No acute osseous abnormality seen right elbow. 2. Soft tissue swelling along the dorsal aspect of the elbow joint either related to contusion or bursitis. Head CT 06/05/18 08:19 Impression: 1. There is no acute intracranial abnormality identified on this unenhanced CT evaluation. 2. Chronic paranasal sinus mucosal thickening, most significantly involving the maxillary sinuses which are subtotally opacified. If there is further clinical concern regarding the patient's symptoms, MR imaging is suggested, if not otherwise contraindicated. Findings were discussed with JAY LYON MD at 9:08, on 06/05/2018. Knee X-Ray 06/05/18 08:19 Impression: Normal left knee series. Imaging: Discussed imaging studies w/ scallop binder Radiologist Differential Diagnosis: Differential diagnosis considered for a seizure including but not limited to electrolyte abnormality, alcohol withdrawal, medication noncompliance, head injury, and breakthrough seizure. Consult/Admit Bed Type: [place] [id number] Critical Care Time: Critical care time spent by me, Dr. Lyon, exclusively with the care of this patient was 30 minutes, exclusive of PA or SANITATION TRUCK CLEANER time and exclusive of separate procedures. The organ system at risk was neurologic and I ordered serial examinations, diagnostics and multiple doses of IV benzodiazepines to stabilize the patient and prevent worsening of the patient's condition. - Data Points Laboratory Results: Laboratory Results 06/05/18 09:30 06/05/18 09:30 06/05/18 06/05/18 06/05/18 09:30 09:30 09:30 WBC 3.90 10^3/uL 10^3/uL (3.80-9.50) RBC 4.38 10^6/uL L 10^6/uL (4.40-6.38) Hgb 14.7 g/dL g/dL (13.7-17.5) Hct 41.7 % % (40.0-51.0) MCV 95.2 fL fL (81.5-99.8) MCH 33.6 pg pg (27.9-34.1) MCHC 35.3 g/dL g/dL (32.4-36.7) RDW 12.7 % % (11.5-15.2) Plt Count 115 10^3/uL L 10^3/uL (150-400) MPV 11.7 fL fL (8.7-11.7) Neut % (Auto) 62.4 % % (39.3-74.2) Lymph % (Auto) 25.6 % % (15.0-45.0) [place] % (Auto) 7.9 % % (4.5-13.0) Eos % (Auto) 2.8 % % (0.6-7.6) Baso % (Auto) 1.0 % % (0.3-1.7) Nucleat RBC Rel Count 0.0 % % (0.0-0.2) Absolute Neuts (auto) 2.43 10^3/uL 10^3/uL (1.70-6.50) Absolute Lymphs (auto) 1.00 10^3/uL 10^3/uL (1.00-3.00) Absolute Monos (auto) 0.31 10^3/uL 10^3/uL (0.30-0.80) Absolute Eos (auto) 0.11 10^3/uL 10^3/uL (0.03-0.40) Absolute Basos (auto) 0.04 10^3/uL 10^3/uL (0.02-0.10) Absolute Nucleated RBC 0.00 10^3/uL 10^3/uL (0-0.01) Immature Gran % 0.3 % % (0.0-1.1) Immature Gran # 0.01 10^3/uL 10^3/uL (0.00-0.10) Sodium 134 mEq/L L mEq/L (135-145) Potassium 3.7 mEq/L mEq/L (3.5-5.2) Chloride 93 mEq/L L mEq/L (97-110) Carbon Dioxide 25 mEq/l mEq/l (22-31) Anion Gap 16 mEq/L H mEq/L (6-14) BUN 6 mg/dL L mg/dL (7-23) Creatinine 0.7 mg/dL mg/dL (0.7-1.3) Estimated GFR > 60 Glucose 104 mg/dL H mg/dL (70-100) Calcium 10.1 mg/dL mg/dL (8.5-10.4) Total Bilirubin 1.1 mg/dL mg/dL (0.1-1.4) Conjugated Bilirubin 0.7 mg/dL H mg/dL (0.0-0.5) Unconjugated Bilirubin 0.4 mg/dL mg/dL (0.0-1.1) AST 494 IU/L H IU/L (17-59) ALT 325 IU/L H IU/L (21-72) Alkaline Phosphatase 110 IU/L IU/L (38-126) Total Protein 7.5 g/dL g/dL (6.3-8.2) Albumin 4.6 g/dL g/dL (3.5-5.0) Medications Given: Discontinued Medications Sodium Chloride (Ns) 1,000 mls @ 0 mls/hr IV EDNOW ONE; Wide Open PRN Reason: Protocol Stop: 06/05/18 09:55 Last Admin: 06/05/18 09:57 Dose: 1,000 mls Lorazepam (Ativan Injection) 1 mg IVP EDNOW ONE Stop: 06/05/18 08:20 Last Admin: 06/05/18 08:28 Dose: 1 mg Lorazepam (Ativan Injection) 2 mg IVP EDNOW ONE Stop: 06/05/18 09:22 Last Admin: 06/05/18 09:24 Dose: 2 mg Lorazepam (Ativan Injection) 2 mg IVP EDNOW ONE Stop: 06/05/18 09:55 Last Admin: 06/05/18 10:07 Dose: 2 mg Lorazepam (Ativan Injection) 2 mg IVP EDNOW ONE Stop: 06/05/18 11:10 Last Admin: 06/05/18 11:20 Dose: 2 mg Departure - Departure Disposition: [facility] In[facility] Acute Clinical Impression: Alcohol withdrawal Qualifiers: Complication of substance-induced condition: with unspecified complication Qualified Code(s): F10.239 - Alcohol dependence with withdrawal, unspecified Contusion of right elbow Qualifiers: Encounter type: initial encounter Qualified Code(s): S50.01XA - Contusion of right elbow, initial encounter Contusion of left knee Qualifiers: Encounter type: initial encounter Qualified Code(s): S80.02XA - Contusion of left knee, initial encounter Condition: Fair
[2018-06-05] MEDS ORDERED: LORazepam 2 MG/ML INJ IVP ONE ×4 (08:19→11:09)
[2018-06-05] MEDS ORDERED: NS 1,000 ML IV ONE (09:54)
[2018-06-05 10:02] LABS: PLATELET COUNT 115 10^3/uL (150-400)
--- NOTE | 2018-06-05 13:45 | ASMTCMCOM ---
CM Note CM Note Notes: Chart reviewed and visited with patient in the ED prior to admisssion for seizures and ETOH withdrawal. Please see detailed CM and behavioral health notes and discharge summary from 01/21/18 Patient informs me that he has followed up with [facility] and is staying at [facility]. When asked, patient tells me that [facility] director at [facility] is Sherin. Patient's converstaion with me is consistent with previous CM assessments regarding MH and substance abuse history, as well as minimal to non existent family support or contact. Patient is originally from [place] and moved to [place] from [place] several months ago. Patient states that he had 6-8 months of sobriety after attending rehab in [place]. He began drinking and using again shortly after arriving to [place] for a job last summer I talked with patient about terminal block assembler recovery programs such as [facility] [employer] [facility], [facility], and [facility]. Patient states that he has discussed options for treatment with his CM but patient has a court date on June 21 and he "want's to see what happens before going anywhere". Given patient's young age, MH history and trauma (?) this CM believes patient would likely benefit from terminal block assembler, dual diagnosis treatment as his best option for recovery and stabilization. This CM left messages with Tiago and Shelby [phone] and associate director financial aid-at [facility] to inform of patient's admission. CM to follow Date Signed: 06/05/2018 01:45 PM Electronically Signed By:Keysha Valdez RN
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
[2018-06-05] MEDS ORDERED: ACETAMINOPHEN 325 MG TAB PO PRN (14:23)
[2018-06-05] MEDS ORDERED: ONDANSETRON DISINTEGRATING 4 MG TAB PO PRN (14:23)
[2018-06-05] MEDS ORDERED: ONDANSETRON 4 MG/2 ML VIAL IVP PRN (14:23)
[2018-06-05] MEDS ORDERED: PHENobarbital 30 MG TAB PO ONE ×4 (14:24→23:15)
[2018-06-05] MEDS ORDERED: LR 1,000 ML IV ONE (14:25)
[2018-06-05] MEDS ORDERED: FLUMAZENIL 0.5 MG/5 ML MDV IVP PRN (14:28)
--- NOTE | 2018-06-05 14:36 | PDCONSULT ---
Instructional Manager Note: ASSESSMENT 28 yo male with etoh dependence admitted with etoh w/d seizure, AGMA and RUQ # etoh w/d seizure # etoh w/d, severe. H/o high requirements # AGMA # abdominal pain # bipolar mood disorder, non compliant with medications # leukopenia. etoh suppression # thrombocytopenia etoh suppression # h/o IVDU prior HCV and HIV eval negative PLAN # oral phenobarb now, as he has h/o high benzo requirements and seizures # crystaloid bolus # high dose thiamine # multivitamin # add on LFTs # place on CIWA # Feeding - NPO # Analgesia APAP, fentanyl # Sedation propofol # Thromboprophylaxis - SQ hep # Head of bed elevated # Ulcer prophylaxis - H2 bhanu # Glucose SSI # Skin no skin breakdown # Delirium - delirium precautions ABX none IMAGING Personally reviewed interpreted patient's radiographic images well as formal radiology reads 06/05/2018 CXR normal cardiac silhouette. Clear lungs 06/05/2018 CT right arm no fracture, mild soft tissue swelling 06/05/2018 CT head negative for intracranial process 06/05/2018 knee x-ray no fracture LABS Personally reviewed labs. CC seizure HPI 28-year-old male with bipolar mood disorder as well as significant alcohol use admitted to the ICU after alcohol withdrawal seizure. His last drink was approximately 17 hr prior. He has had 2-3 prior withdrawal seizures and his life all associated with alcohol. He is noncompliant with his bipolar medications, smokes tobacco daily, has a history of IV drug use but none in months, smokes marijuana. He has a history of septic thrombophlebitis and MRSA bacteremia and was previously hospitalized at [facility] for this.He also complains of a bony pain. Both images were negative. A CT head was negative. He also complains of mild abdominal pain. LFTs are pending. He denies fevers, chills, shortness of breath, nausea vomiting. Allergies Gabapentin Medications None Past medical history Bipolar mood disorder, alcohol dependence and alcohol withdrawal seizures, Social history Homeless, marijuana alcohol dependence, half a gallon of hard liquor per day. Tobacco use Family history No history of withdrawal seizures Review of systems A comprehensive 10 point review of systems was obtained is negative except as per HPI Physical exam Vitals afebrile pulse 88 blood pressure 118/76 respiratory rate 18 94% room air GEN: NAD, up in chair, interactive NEURO: A&Ox3, CN 2-12 GI HEENT: PERRL, EOMI, MMM, OP clear NECK: supple, trachea midline CHEST normal shape, no pes excavatum CVS: rrr no m/r/g PULM: CTA B, no wheezes/rales/rhonchi ABD: Mild tenderness to palpation, ND, NABS EXT: no swelling, no cyanosis, full ROM SKIN: Scrape on the mild elbow swelling PSYCH CAM negative, appropriate affect
--- NOTE | 2018-06-05 15:06 | GHP ---
[f rep st] HISTORY AND PHYSICAL DATE OF ADMISSION: 06/05/2018 CHIEF COMPLAINT: Alcohol withdrawal seizure. HISTORY OF PRESENT ILLNESS: This is a 28-year-old man with a history of alcohol abuse, who presents with a withdrawal seizure. This occurred about 8:00 this morning at the [facility]. His last drink was about 12 hours before his seizure. He tells me that he drinks about half a gallon of hard alcohol every day. This was his approximate intake yesterday. He did bite his tongue and feels that he lost control of his bladder during the seizure. He complains of some right elbow pain, as well a s some left knee pain. He has had about 3 seizures in his life. They have all been associated with alcohol withdrawal in the past. PAST MEDICAL/SURGICAL HISTORY: 1. Bipolar disorder, not on medications. 2. PTSD. 3. Anxiety. 4. Alcohol abuse. 5. Pancreatitis. 6. Seizure disorder. 7. Staph aureus bacteremia on his last admission here, thought due to a septic thrombophlebitis due to peripheral IV. 8. History of intravenous drug use in the past. MEDICATIONS: Please see medication reconciliation. ALLERGIES: Gabapentin. FAMILY HISTORY: Reviewed and noncontributory. SOCIAL HISTORY: He is homeless. He smokes. He would like a nicotine patch. He drinks alcohol as a francesca. REVIEW OF SYSTEMS: Positive for headache, nausea, abdominal pain, shortness of breath. Otherwise, 1 0-point review of systems is conducted and is negative except per HPI. PHYSICAL EXAM: VITAL SIGNS: Blood pressure 132/78, heart rate 78, respiration rate 16, satting 98% on room air. Temperature 36.4. GENERAL: The patient is a pleasant man, who is resting comfortably. He appears somewhat tremulous. HEENT: Shows him to be normocephalic, atraumatic. He has mild ton demi fasciculations. CARDIOVASCULAR: Exam shows a regular rate and rhythm. No murmurs, rubs, or gal lops. PULMONARY: Exam shows bilateral basilar rales, as well as some mild expiratory wheezes. ABDO MEN: Diffusely tender to palpation. He has no real Sparks sign. He has no guarding or rebound. He has no hepatosplenomegaly. SKIN: Exam shows no rash. : Exam shows no Rosenbaum. NEUROLOGIC: Exam shows him to be somewhat tremulous. EXTREMITIES: Exam shows there to be an ecchymosis over his lef t elbow, as well as a bruise over his left knee. LABS: Platelets are 115, sodium 134, anion gap is 16, creatinine 0.7. DATA: 1. Discussed with Dr. Ernandez. Will admit to the ICU. 2. Knee x-ray shows nothing acute. 3. Head CT scan shows nothing acute. 4. Elbow x-ray shows no evidence of fracture. IMPRESSION AND PLAN: 1. Alcohol withdrawal seizure: He expresses that he would like to quit drinking. I am concerned th at he will have severe alcohol withdrawal. We will give him a dose of phenobarbital now then start h im on Clinical [facility] Withdrawal Assessment protocol. He will get IV thiamin. He will be triaged to the step-down unit for now. He may need Precedex. 2. Thrombocytopenia. This is somewhat new for him. We will follow for now. Concerned that this ma y be related to liver pathology. 3. History of intravenous drug use. He had a negative HIV, as well as hepatitis on his last admissi on. 4. History of Staph aureus bacteremia. No evidence of bacteremia at this point. 5. Underlying psychiatric disease: These are likely untreated and certainly contributing to his sub stance abuse. Would consider having Melina Herrera see him during this hospitalization. /[id number]/MODL
[2018-06-05] MEDS: THIAMINE HCL 500 MG in NS 100 ML IV SCH (15:23)
[2018-06-05] MEDS: NICOTINE 21 MG/24 HR PATCH TD SCH (15:59)
[2018-06-05] MEDS: LORazepam 2 MG/ML INJ IVP PRN ×5 (16:11→22:28)
[2018-06-05] MEDS ORDERED: DEXMEDETOMIDINE HCL 400 MCG in NS 100 ML IV SCH (20:00)
[2018-06-06] MEDS: LORazepam 2 MG/ML INJ IVP PRN ×5 (06:43→22:21)
[2018-06-06 06:47] LABS: PLATELET COUNT 96 10^3/uL (150-400)
[2018-06-06] MEDS ORDERED: PHENOBARBITAL NA IVP ONE (08:30)
[2018-06-06] MEDS ORDERED: NS IVP ONE (08:30)
[2018-06-06] MEDS ORDERED: ENOXAPARIN 40 MG/0.4 ML SYR SC SCH (09:00)
[2018-06-06] MEDS: THIAMINE HCL 500 MG in NS 100 ML IV SCH (09:44)
[2018-06-06] MEDS: NICOTINE 21 MG/24 HR PATCH TD SCH (09:44)
--- NOTE | 2018-06-06 10:07 | HOSPPROG ---
Hospitalist Progress Note Assessment/Plan: Alcohol withdrawal seizure - CIWA 26 on admission, 11 overnight, did require precedex overnight, now off -cont CIWA, prn Ativan -prn phenobarb -avoid precedex Thrombocytopenia - likely 2/2 etoh -follow H/O staph aureus bacteremia H/O IVDA Psych - RN behavioral health consult requested Full code Dispo - cont inpt, ICU Subjective: Pt very sleepy, able to wake up, but not very interactive. No fevers. No seizures. Objective: Vital Signs Temp Pulse Resp BP Pulse Ox 37.2 C 93 18 138/109 H 92 06/06/18 07:54 06/06/18 07:54 06/06/18 07:54 06/06/18 07:54 06/06/18 07:54 Laboratory Results 06/06/18 06:30 06/06/18 06:30 06/05/18 06/06/18 06/07/18 05:59 05:59 05:59 Intake Total 3548.8 Output Total 1850 Balance 1698.8 - Physical Exam Constitutional: no apparent distress Eyes: PERRL Ears, Nose, Mouth, Throat: moist mucous membranes Cardiovascular: regular rate and rhythym Respiratory: no respiratory distress Gastrointestinal: normoactive bowel sounds, soft, non-tender abdomen Skin: warm Musculoskeletal: full muscle strength Psychiatric: encephalopathic ICD10 Worksheet Patient Problems: Problems Problem Status Onset Alcohol withdrawal Acute Contusion of left knee Acute Contusion of right elbow Acute Acute alcoholic pancreatitis Acute Alcohol abuse Acute Alcoholic pancreatitis Acute
[2018-06-06] MEDS ORDERED: NICOTINE 21 MG/24 HR PATCH TD SCH (10:16)
--- NOTE | 2018-06-06 11:19 | PDINTPN ---
Sales Leader Progress Note Assessment/Plan: ASSESSMENT 28 yo male with etoh dependence admitted with etoh w/d seizure, AGMA and RUQ # etoh w/d seizure. none since admission # etoh w/d, severe. H/o high requirements. Clinically improving after phenobarb # alcoholic hepatitis. Discriminant function low. # AGMA, resolved # abdominal pain, improved # hypokalemia # bipolar mood disorder, non compliant with medications # leukopenia. etoh suppression # thrombocytopenia etoh suppression # h/o IVDU prior HCV and HIV eval negative PLAN # continue CIWA # phenobarbital as needed. # avoid precedex given history of withdrawal seizures and mechanism of action # aggressively replete electrolytes # psych consult given bipolar mood disorder with poor coping mechanisms # scheduled QHS seroquel given insomnia and BMD, however happy to have Psychiatry change dosing/meds # high dose thiamine # multivitamin # Feeding - reg diet # Analgesia APAP, # Sedation none # Thromboprophylaxis - SQ hep # Head of bed elevated # Ulcer prophylaxis - H2 bhanu # Glucose SSI # Skin no skin breakdown # Delirium - delirium precautions ABX none IMAGING Personally reviewed interpreted patient's radiographic images well as formal radiology reads 06/05/2018 CXR normal cardiac silhouette. Clear lungs 06/05/2018 CT right arm no fracture, mild soft tissue swelling 06/05/2018 CT head negative for intracranial process 06/05/2018 knee x-ray no fracture 06/06/18 11:18 Subjective: Briefly in Precedex overnight although patient was sleeping prior to initiating. Has received multiple Ativan and phenobarb boluses. Alcohol withdrawal significantly improved today. No new fevers, chills, nausea vomiting , no chest pain Objective: Vital Signs Temp Pulse Resp BP Pulse Ox 37.2 C 93 18 138/109 H 92 06/06/18 07:54 06/06/18 07:54 06/06/18 07:54 06/06/18 07:54 06/06/18 07:54 Laboratory Results 06/06/18 06:30 06/06/18 06:30 06/05/18 06/06/18 06/07/18 05:59 05:59 05:59 Intake Total 3548.8 Output Total 1850 Balance 1698.8 Physical Exam - Physical Exam General Appearance: alert, no apparent distress EENT: PERRL/EOMI, normal ENT inspection Neck: non-tender, full range of motion Respiratory: chest non-tender, lungs clear, normal breath sounds Cardiac/Chest: normal peripheral pulses, regular rate, rhythm, No edema Abdomen: normal bowel sounds, non-tender, soft Back: Normal inspection Skin: normal color, warm/dry, No cyanosis Extremities: normal range of motion, non-tender, normal inspection Neuro/Psych: no motor/sensory deficits, alert, normal mood/affect, oriented x 3 ICD10 Worksheet Patient Problems: Problems Problem Status Onset Alcohol withdrawal Acute Contusion of left knee Acute Contusion of right elbow Acute Acute alcoholic pancreatitis Acute Alcohol abuse Acute Alcoholic pancreatitis Acute
--- NOTE | 2018-06-06 11:42 | PDMN ---
Medical Necessity Medical necessity: [place] and [facility] (Sub[place] Related Disorders): est los > 2 mn for ongoing tx and management of acute alcohol withdrawal seizure in a pt with hx of repetitive seizures due to alcohol withdrawal. Initial CIWA score of 26 with tremor, headache, agitation, anxiety, visual and auditory disturbances, disorientation, and headache; requiring step-down unit level of care, CIWA protocol with repeat doses of IV Ativan, cardiac monitoring and serial labs. Hx seizure disorder, PTSD, anxiety, and pancreatitis.
[2018-06-06] MEDS: MAGNESIUM OXIDE 400 MG TAB PO SCH ×2 (13:52→21:07)
[2018-06-06] MEDS: POTASSIUM CL 20 MEQ TAB PO SCH ×2 (13:52→14:44)
[2018-06-06] MEDS ORDERED: PHENobarbital 30 MG TAB PO ONE (15:50)
[2018-06-06] MEDS ORDERED: POTASSIUM CL 20 MEQ TAB PO ONE (17:28)
[2018-06-06] MEDS ORDERED: QUEtiapine FUMARATE 50 MG TAB PO SCH (21:00)
[2018-06-07 07:15] VITALS: BP 117/86
--- NOTE | 2018-06-07 08:14 | PDINTPN ---
Account Collector Progress Note Assessment/Plan: ASSESSMENT 28 yo male with etoh dependence admitted with etoh w/d seizure, AGMA and RUQ # etoh w/d seizure. none since admission # etoh w/d, severe. H/o high requirements. Clinically improving after phenobarb. phenobarb total 425 mg, 29 mg ativan. # alcoholic hepatitis. Discriminant function low. # AGMA, resolved # abdominal pain, improved # hypokalemia # bipolar mood disorder, non compliant with medications # leukopenia. etoh suppression # thrombocytopenia etoh suppression # h/o IVDU prior HCV and HIV eval negative PLAN # completed w/d. received total phenobarb 425 mg, ativan 29 mg # okay to discharge from a critical care standpoint # psych consult given bipolar mood disorder with poor coping mechanisms # scheduled QHS seroquel given insomnia and BMD, however happy to have Psychiatry change dosing/meds # high dose thiamine # multivitamin # Feeding - reg diet # Analgesia APAP, # Sedation none # Thromboprophylaxis - SQ hep # Head of bed elevated # Ulcer prophylaxis - H2 bhanu # Glucose SSI # Skin no skin breakdown # Delirium - delirium precautions ABX none IMAGING Personally reviewed interpreted patient's radiographic images well as formal radiology reads 06/05/2018 CXR normal cardiac silhouette. Clear lungs 06/05/2018 CT right arm no fracture, mild soft tissue swelling 06/05/2018 CT head negative for intracranial process 06/05/2018 knee x-ray no fracture 06/06/18 11:18 06/07/18 08:11 Subjective: Received 90 mg of phenobarb yesterday, CIWA 0, tolerating diet, no fever, chills , nausea, vomiting. phenobarb total 425 mg, 29 mg ativan, Objective: Vital Signs Temp Pulse Resp BP Pulse Ox 37.3 C 71 20 117/86 H 94 06/06/18 20:00 06/07/18 07:12 06/07/18 07:12 06/07/18 07:12 06/07/18 07:12 Laboratory Results 06/07/18 05:15 06/07/18 05:15 06/06/18 06/07/18 06/08/18 05:59 05:59 05:59 Intake Total 3548.8 2462 Output Total 1850 3500 Balance 1698.8 -1038 Physical Exam - Physical Exam General Appearance: alert, no apparent distress EENT: PERRL/EOMI, normal ENT inspection Neck: non-tender, full range of motion Respiratory: chest non-tender, lungs clear, normal breath sounds Cardiac/Chest: normal peripheral pulses, regular rate, rhythm Skin: normal color, warm/dry, No cyanosis Neuro/Psych: no motor/sensory deficits, alert, normal mood/affect, other (no tremor ciwa 0) ICD10 Worksheet Patient Problems: Problems Problem Status Onset Alcohol withdrawal Acute Contusion of left knee Acute Contusion of right elbow Acute Acute alcoholic pancreatitis Acute Alcohol abuse Acute Alcoholic pancreatitis Acute
[2018-06-07] MEDS: MAGNESIUM OXIDE 400 MG TAB PO SCH (08:18)
--- NOTE | 2018-06-07 09:24 | ASMTDCNOTE ---
Case Management Discharge Discharge Order Complete? Answers: Yes Patient to Obtain Answers: Independently Medications Transportation Arranged Answers: Bus Tokens Discharge Comments Notes: Patient discharged to [facility]. Instructed to give his d/c paperwork to his orthoptist there. Bus pass provided. Date Signed: 06/07/2018 09:23 AM Electronically Signed By:Zohra Talavera RN
--- NOTE | 2018-06-07 09:26 | GDS ---
[f rep st] DISCHARGE SUMMARY DISCHARGE DIAGNOSES: 1. Alcohol withdrawal seizure. 2. Alcohol dependence. 3. Thrombocytopenia secondary to bone marrow suppression in the setting of alcohol abuse. 4. History of intravenous drug abuse. 5. Homelessness. HISTORY OF DETAILS: Please see History and Physical dated June 05, 2018. In brief, this patient is a 28-year-old homeless male with history of alcohol dependence and IV drug abuse, who presented to [facility] emergency department after a seizure. This was thought to be secondary to alcohol withdrawal. He was admitted to the ICU for further management. HOSPITAL COURSE: Patient was admitted to the ICU on CIWA protocol. He received several doses of phe nobarbital, which did reduce his benzodiazepine needs. His withdrawal resolved without complication. His CIWA score this morning is 0-2. He wishes to discharge back to the homeless group home. DISPOSITION: Patient is discharged to the homeless group home in stable condition. FOLLOWUP: Recommend patient follow up at [facility] for ongoing support and assistance with man aging a sobriety plan. DISCHARGE MEDICATIONS: Please see [employer] for completed outpatient medication list. There are no n ew medications at discharge. /[id number]/MODL
[2018-06-08] MEDS ORDERED: THIAMINE HCL 100 MG TAB PO SCH (14:28)
== END 2018-06-07 09:28 | disposition home or self-care (01) | DRG 775 ==
LOC: EDUNIT# → F2N 13:35
PROVIDERS: ADMIT Student in an Organized Health Care Education/Training Program; ATTEND Hospitalist
DX: F10.239 Alcohol dependence with withdrawal, unspecified (principal); G40.89 Other seizures; D69.6 Thrombocytopenia, unspecified; F31.9 Bipolar disorder, unspecified; E87.6 Hypokalemia; F43.10 Post-traumatic stress disorder, unspecified; Z59.0 Homelessness; F17.210 Nicotine dependence, cigarettes, uncomplicated
CPT/HCPCS: 96374; J1650; J2060; J2405; J2560; J3411

== ENCOUNTER 2018-07-09 05:28 | Inpatient (IN) | payer MEDICAID ==
[2018-07-09] MEDS ORDERED: NS 1,000 ML IV ONE (05:35)
[2018-07-09 05:46] LABS: PLATELET COUNT 248 10^3/uL (150-400)
[2018-07-09] MEDS ORDERED: LORazepam 2 MG/ML INJ IVP ONE ×2 (05:50→06:02)
[2018-07-09] MEDS ORDERED: PHENobarbital NA 130 MG/ML VIAL IVP ONE ×2 (05:50→05:58)
[2018-07-09] MEDS ORDERED: FAMOTIDINE 20 MG/NACL 50 ML IV ONE (05:50)
--- NOTE | 2018-07-09 05:53 | EDPHY ---
H & P Stated Complaint: abd pain and vomiting Time Seen by Provider: 07/09/18 05:35 HPI/ROS: HPI The patient presents with nausea, vomiting, abdominal pain which all began about 8 or 9 hr ago, patient is brought in by ambulance. He drinks alcohol daily approximately 1 pt of hard alcohol. His last drink was 24 hr ago. He began to experience symptoms of withdrawal about 9 hr ago and then began to vomit. He says he is currently vomiting every few minutes and is unable to even take a sip of water. He reports a dull upper abdominal pain which has been constant over the last several hours. He feels shaky and unsteady. His symptoms feel like when he has had alcoholic pancreatitis in the past.. REVIEW OF SYSTEMS 10 systems were reviewed and negative with the exception of the elements mentioned in the history of present illness. PMHx: History of alcohol withdrawal, history of alcoholic pancreatitis Soc Hx: Currently homeless, daily alcohol abuse, history of bipolar disorder PHYSICAL General Appearance: Alert, tremulous Eyes: Pupils equal and round no pallor or injection ENT, Mouth: Mucous membranes dry Respiratory: There are no retractions, lungs are clear to auscultation Cardiovascular: Tachycardic rate and regular rhythm Gastrointestinal: Abdomen is soft and tender in the epigastrium, no masses, bowel sounds normal Neurological: A&O, moves all extremities Skin: Warm and dry, no rashes Musculoskeletal: Neck is supple non tender Extremities: symmetrical, full range of motion Psychiatric: Patient is oriented X 3, there is no agitation Source: Patient Exam Limitations: No limitations - Personal History Current Tetanus/Diphtheria Vaccine: Yes Current Tetanus Diphtheria and Acellular Pertussis (TDAP): Yes - Medical/Surgical History Hx Asthma: No Hx Chronic Respiratory Disease: Yes Hx Diabetes: No Hx Cardiac Disease: No Hx Renal Disease: No Hx Cirrhosis: No Hx Alcoholism: Yes Hx HIV/AIDS: No Hx Splenectomy or Spleen Trauma: No Other PMH: Fillings in teeth, wisdom tooth Right lower jaw, Bipolar, HTN, anxiety, PTSD, ETOH - Social History Smoking Status: Current every day smoker Constitutional: Initial Vital Signs Temperature (C) 36.4 C 07/09/18 05:34 Heart Rate 102 H 07/09/18 05:34 Respiratory Rate 18 07/09/18 05:34 Blood Pressure 129/85 H 07/09/18 05:34 O2 Sat (%) 97 07/09/18 05:34 O2 Delivery Mode Nasal Cannula O2 (L/minute) 2 Allergies/Adverse Reactions: gabapentin [From Neurontin] Allergy (Verified 07/09/18 05:36) Home Medications: Medication Instructions Recorded NK [No Known Home Meds] 06/05/18 Medical Decision Making Differential Diagnosis: This is a 28-year-old male brought in by ambulance for nausea, vomiting, abdominal pain in the setting of stopping drinking alcohol 24 hr ago. The patient has a history of alcoholic pancreatitis and this feels very similar. He also is exhibiting symptoms of alcohol withdrawal. Plan for IV fluids, antiemetics, phenobarbital, basic labs and reassessment. Patient somewhat better with above treatment. He continues to have nausea and vomiting. Labs demonstrate acute pancreatitis, anion gap acidosis likely suggestive of AKA, hepatitis. I discussed the case with Dr. Lucio, we will admit him to the hospital. - Data Points Laboratory Results: Laboratory Results 07/09/18 05:30 07/09/18 05:30 Medications Given: Acetaminophen (Tylenol) 650 mg PO Q4HRS PRN PRN Reason: Pain, Mild/Fever, Can Take PO Stop: 01/05/19 06:56 Last Admin: 07/09/18 22:32 Dose: 650 mg Enoxaparin Sodium (Lovenox) 40 mg SC DAILY DE Stop: 01/05/19 14:14 Last Admin: 07/09/18 14:34 Dose: 40 mg Famotidine (Pepcid) 20 mg PO BID DE Stop: 01/05/19 14:14 Last Admin: 07/09/18 20:57 Dose: 20 mg Folic Acid (Folic Acid) 1 mg PO DAILY DE Stop: 01/05/19 08:59 Last Admin: 07/09/18 10:09 Dose: 1 mg Lorazepam (Ativan) 0 mg PO Q4HRS PRN; Protocol PRN Reason: Alcohol W/D w/ No IV Access Stop: 01/05/19 19:49 Last Admin: 07/10/18 01:18 Dose: 2 mg Multivitamins (Tab-A-Patricia) 1 each PO DAILY DE Stop: 01/05/19 08:59 Last Admin: 07/09/18 10:09 Dose: 1 each Ondansetron HCl (Zofran Odt) 4 mg PO Q4HRS PRN PRN Reason: Nausea/Vomiting, Use 1st Stop: 01/05/19 06:56 Last Admin: 07/09/18 22:33 Dose: 4 mg Oxycodone HCl (Oxycodone Ir) 5 - 10 mg PO Q3HRS PRN PRN Reason: Pain, Severe Able to Take PO Stop: 07/19/18 06:56 Last Admin: 07/09/18 22:33 Dose: 10 mg Discontinued Medications Sodium Chloride (Ns) 1,000 mls @ 0 mls/hr IV EDNOW ONE; Wide Open PRN Reason: Protocol Stop: 07/09/18 05:36 Last Admin: 07/09/18 05:45 Dose: 1,000 mls Famotidine/Sodium Chloride (Pepcid 20 Mg (Premix)) 50 mls @ 200 mls/hr IV EDNOW ONE Stop: 07/09/18 06:04 Last Admin: 07/09/18 06:10 Dose: 50 mls Phenobarbital Sodium 950 mg/ (Syringe) 7.3077 mls @ 21.923 mls/hr IVP EDNOW ONE Stop: 07/09/18 06:49 Last Admin: 07/09/18 06:41 Dose: 7.3077 mls Sodium Chloride (Ns) 1,000 mls @ 150 mls/hr IV CONT DE Stop: 01/05/19 06:59 Last Admin: 07/09/18 07:47 Dose: 1,000 mls Lactated Ringer's (Lr) 1,000 mls @ 250 mls/hr IV ONCE ONE Stop: 07/09/18 18:07 Last Admin: 07/09/18 14:19 Dose: 1,000 mls Lorazepam (Ativan) 0 mg PO Q4H PRN; Protocol PRN Reason: Alcohol Withdrawal w/IV access Stop: 07/09/18 17:57 Last Admin: 07/09/18 17:10 Dose: 2 mg Lorazepam (Ativan Injection) 0 mg IVP Q1H PRN; Protocol PRN Reason: Alcohol Withdrawal w/IV access Stop: 07/09/18 17:57 Last Admin: 07/09/18 13:02 Dose: 2 mg Lorazepam (Ativan Injection) 2 mg IVP EDNOW ONE Stop: 07/09/18 06:03 Last Admin: 07/09/18 06:06 Dose: 2 mg Pantoprazole Sodium (Protonix) 80 mg IVP EDNOW ONE Stop: 07/09/18 06:57 Last Admin: 07/09/18 07:11 Dose: 80 mg Permethrin (Elimite 5%) 1 francesco TP ONCE ONE Stop: 07/09/18 09:32 Last Admin: 07/09/18 10:09 Dose: 1 francesoc Phenobarbital (Phenobarbital) 120 mg PO ONCE ONE Stop: 07/09/18 14:02 Last Admin: 07/09/18 14:18 Dose: 120 mg Phenobarbital Sodium (Phenobarbital) 260 mg IVP ONCE ONE Stop: 07/09/18 05:51 Last Admin: 07/09/18 06:22 Dose: Not Given Departure - Departure Disposition: [facility] Acute Clinical Impression: Hepatitis, Alcoholic ketoacidosis Alcohol withdrawal Qualifiers: Complication of substance-induced condition: with delirium Qualified Code(s): F10.231 - Alcohol dependence with withdrawal delirium Acute alcoholic pancreatitis Qualifiers: Acute pancreatitis complication: unspecified Qualified Code(s): K85.20 - Alcohol induced acute pancreatitis without necrosis or infection Condition: Fair
[2018-07-09] MEDS ORDERED: LORazepam 1 MG TAB PO PRN (05:57)
[2018-07-09] MEDS ORDERED: [UNRECOGNIZED DRUG - MIXTURE] IVP ONE (06:30)
[2018-07-09] MEDS ORDERED: PANTOPRAZOLE SODIUM 40 MG VIAL IVP ONE (06:56)
[2018-07-09] MEDS ORDERED: HYDROmorphONE/DILAUDID 1 MG/ML INJ IVP PRN (06:57)
[2018-07-09] MEDS ORDERED: ACETAMINOPHEN 325 MG TAB PO PRN (06:57)
[2018-07-09] MEDS ORDERED: ONDANSETRON 4 MG/2 ML VIAL IVP PRN (06:57)
[2018-07-09] MEDS ORDERED: LORazepam 2 MG/ML INJ IVP PRN (06:59)
[2018-07-09] MEDS ORDERED: FLUMAZENIL 0.5 MG/5 ML MDV IVP PRN (06:59)
[2018-07-09] MEDS ORDERED: NS 1,000 ML IV SCH (07:00)
--- NOTE | 2018-07-09 07:22 | PDGENHP ---
History and Physical - Chief Complaint Alcohol withdrawal, abdominal pain - History of Present Illness 28 yo M w/ hx of ETOH use d/o presents with alcohol withdrawal and abdominal pain. The patient is quite sedated during my evaluation so the majority of my history comes from my discussion with the ED physician. Per report, he began to experience withdrawal symptoms about 9 hours ago. He then also developed abdominal pain and vomiting. He is unable to tolerate any significant PO intake at this time. He tells me his last drink was about 26 hours ago. He has a prior history of severe withdrawal and seizures. He admits to marijuana use but denies other drug use to me. He was in significant withdrawal upon arrival to the ED, now much more calm after phenobarbital administration. He will be admitted to the SDU for close monitoring. Case discussed with ED physician Dr. Isaacs; records reviewed and summarized above. History Information - Allergies/Home Medication List Allergies/Adverse Reactions: gabapentin [From Neurontin] Allergy (Verified 07/09/18 05:36) Home Medications: NK [No Known Home Meds] 06/05/18 [Last Taken Unknown] I have personally reviewed and updated: family history, medical history - Past Medical History Additional medical history: Bipolar disorder, PTSD, anxiety, alcohol dependence/ pancreatitis, withdrawal seizures - Surgical History Reports: no pertinent surgical hx - Family History Additional family history: Diabetes in grandparents. Grandfather with history of stroke and [place]. mother - Crohn's. etoh, bipolar, anxiet/depression - Social History Smoking Status: Current every day smoker Additional social history: Patient is currently homeless. Recently relocated from [place]. Review of Systems Review of Systems: ROS: 10pt was reviewed & negative except for what was stated in HPI & below Physical Exam Physical Exam: Temp Pulse Resp BP Pulse Ox 36.4 C 107 H 16 133/84 H 94 07/09/18 05:34 07/09/18 06:41 07/09/18 06:41 07/09/18 06:41 07/09/18 06:41 Constitutional: uncomfortable, unkempt Eyes: PERRL, EOMI Ears, Nose, Mouth, Throat: moist mucous membranes, no oral mucosal ulcers Cardiovascular: regular rate and rhythym, no murmur, rub, or gallop Respiratory: no respiratory distress, clear to auscultation Gastrointestinal: normoactive bowel sounds, tenderness (Epi-gastric), No guarding, No rebound, No distension Skin: warm, normal color Musculoskeletal: full muscle strength, no muscle tenderness Neurologic: AAOx3, CN II-XII Intact Psychiatric: interacting appropriately, not anxious Lab Data & Imaging Review 07/09/18 05:30 07/09/18 05:30 WBC 8.93 10^3/uL (3.80-9.50) 07/09/18 05:30 RBC 4.83 10^6/uL (4.40-6.38) 07/09/18 05:30 Hgb 16.5 g/dL (13.7-17.5) 07/09/18 05:30 Hct 45.9 % (40.0-51.0) 07/09/18 05:30 MCV 95.0 fL (81.5-99.8) 07/09/18 05:30 MCH 34.2 pg (27.9-34.1) H 07/09/18 05:30 MCHC 35.9 g/dL (32.4-36.7) 07/09/18 05:30 RDW 12.6 % (11.5-15.2) 07/09/18 05:30 Plt Count 248 10^3/uL (150-400) 07/09/18 05:30 MPV 10.0 fL (8.7-11.7) 07/09/18 05:30 Neut % (Auto) 68.2 % (39.3-74.2) 07/09/18 05:30 Lymph % (Auto) 21.6 % (15.0-45.0) 07/09/18 05:30 [place] % (Auto) 8.4 % (4.5-13.0) 07/09/18 05:30 Eos % (Auto) 0.6 % (0.6-7.6) 07/09/18 05:30 Baso % (Auto) 0.9 % (0.3-1.7) 07/09/18 05:30 Nucleat RBC Rel Count 0.0 % (0.0-0.2) 07/09/18 05:30 Absolute Neuts (auto) 6.09 10^3/uL (1.70-6.50) 07/09/18 05:30 Absolute Lymphs (auto) 1.93 10^3/uL (1.00-3.00) 07/09/18 05:30 Absolute Monos (auto) 0.75 10^3/uL (0.30-0.80) 07/09/18 05:30 Absolute Eos (auto) 0.05 10^3/uL (0.03-0.40) 07/09/18 05:30 Absolute Basos (auto) 0.08 10^3/uL (0.02-0.10) 07/09/18 05:30 Absolute Nucleated RBC 0.00 10^3/uL (0-0.01) 07/09/18 05:30 Immature Gran % 0.3 % (0.0-1.1) 07/09/18 05:30 Immature Gran # 0.03 10^3/uL (0.00-0.10) 07/09/18 05:30 Sodium 141 mEq/L (135-145) 07/09/18 05:30 Potassium 4.0 mEq/L (3.5-5.2) 07/09/18 05:30 Chloride 96 mEq/L (97-110) L 07/09/18 05:30 Carbon Dioxide 23 mEq/l (22-31) 07/09/18 05:30 Anion Gap 22 mEq/L (6-14) H 07/09/18 05:30 BUN 8 mg/dL (7-23) 07/09/18 05:30 Creatinine 0.8 mg/dL (0.7-1.3) 07/09/18 05:30 Estimated GFR > 60 07/09/18 05:30 Glucose 143 mg/dL (70-100) H 07/09/18 05:30 Calcium 9.5 mg/dL (8.5-10.4) 07/09/18 05:30 Total Bilirubin 0.9 mg/dL (0.1-1.4) 07/09/18 05:30 AST 318 IU/L (17-59) H 07/09/18 05:30 ALT 296 IU/L (21-72) H 07/09/18 05:30 Alkaline Phosphatase 148 IU/L (38-126) H 07/09/18 05:30 Total Protein 8.3 g/dL (6.3-8.2) H 04/23/19 05:30 Albumin 5.2 g/dL (3.5-5.0) H 07/09/18 05:30 Lipase 693 IU/L (23-300) H 07/09/18 05:30 Assessment & Plan Assessment: 28 yo M w/ ETOH use d/o presents with ETOH withdrawal and pancreatitis. Plan: 1. ETOH use disorder with acute withdrawal - Presented in severe withdrawal, now calmer after phenobarbital administration in the ED. He reports his last drink is about 24 hours [employer]. He has a hx of severe withdrawal and seizures. - Observe in step down unit - CIWA protocol ordered - Daily folate, thiamine, MVI - Case management consult for resources 2. ETOH pancreatitis - Epi-gastric pain and vomiting present for several hours prior to admission. Lipase of 693 on presentation. - NPO, mIVF, pain control - Advance diet as tolerated 3. ETOH hepatitis - AST/ALT 318/296. - Monitor CMP 4. Homelessness - CM Consult placed. Diet - NPO, mIVF, ADAT Code - Full Ppx - SCDs Dispo - Admit under observation status
[2018-07-09] MEDS ORDERED: PERMETHRIN 5% 60 GM CREAM TP ONE (09:31)
--- NOTE | 2018-07-09 09:34 | HOSPPROG ---
Hospitalist Progress Note Assessment/Plan: 28 yo M w/ ETOH use d/o presents with ETOH withdrawal and pancreatitis. ETOH abuse in acute withdrawal - S/P Phenobarb in ED - repeat phenobarb this afternoon, 120 mg po once - Cont CIWA - Daily folate, thiamine, MVI - Case management consult for resources ETOH pancreatitis - Epi-gastric pain and vomiting present for several hours prior to admission. Lipase of 693 on presentation. - NPO, IVF's, pain control ETOH hepatitis - AST/ALT 318/296. - follow Scabies - tx with permethrin, will throw out and replace his clothes as unlikely we can launder these Homelessness - CM Consult placed. Diet - NPO, IVF's Code - Full Ppx - SCDs Dispo - admit to inpt, transfer to med/surg Subjective: Pt awake, alert, mild tremor. Says he had a seizure last night. No N/V. No bleeding. He wants to get sober, but doesn't have support, homeless. Objective: Vital Signs Temp Pulse Resp BP Pulse Ox 37.2 C 113 H 20 139/88 H 96 07/09/18 09:17 07/09/18 09:17 07/09/18 09:17 07/09/18 09:17 07/09/18 09:17 07/08/18 07/09/18 07/10/18 05:59 05:59 05:59 Intake Total 1200 Balance 1200 - Physical Exam Constitutional: no apparent distress Eyes: PERRL Ears, Nose, Mouth, Throat: moist mucous membranes Cardiovascular: regular rate and rhythym Respiratory: no respiratory distress Gastrointestinal: normoactive bowel sounds, soft, non-tender abdomen Skin: warm Musculoskeletal: full muscle strength Neurologic: AAOx3, other (mild tremor) Psychiatric: interacting appropriately ICD10 Worksheet Patient Problems: Problems Problem Status Onset Acute alcoholic pancreatitis Acute Alcohol withdrawal Acute Alcoholic ketoacidosis Acute Hepatitis Acute Alcohol abuse Acute Alcoholic pancreatitis Acute Contusion of left knee Acute Contusion of right elbow Acute
--- NOTE | 2018-07-09 09:58 | PDMN ---
Medical Necessity Medical necessity: [facility] M595 Substance-Related Disorders, 2 days: 28 yo in acute etoh w/d w/ known hx etoh w/d seizures in addition to comorbids - etoh pancreatitis and hepatitis. Tachy 102-113, CIWA protocol, NPO, IVF, pain management. Pt is high risk. Admit IP status to SDU. Hx bipolar, PTSd, anxiety, Etoh dependence, pancreatitis, w/d seizures, homeless.
[2018-07-09] MEDS: MULTIVITAMINS 1 EACH TAB PO SCH (10:09)
[2018-07-09] MEDS: FOLIC ACID 1 MG TAB PO SCH (10:09)
[2018-07-09] MEDS: LORazepam 2 MG/ML INJ IVP PRN ×2 (10:37→13:02)
[2018-07-09] MEDS: ONDANSETRON DISINTEGRATING 4 MG TAB PO PRN ×2 (10:45→22:33)
--- NOTE | 2018-07-09 11:36 | ASMTLACE ---
ROSALBA Acuity / Level of Answers: Yes Care: Did the patient have an inpatient admission? Comorbidities - select Answers: Opioid dependence all that apply / Chronic pain # of Emergency department Answers: 5-8 visits in the last 6 months Social determinants Answers: History of substance abuse (ETOH, street drugs, prescription drugs, etc.) Homelessness (street, senior care) Mental health diagnosis (anxiety, depression, pers onality disorders, etc.) Score: 20 Date Signed: 07/09/2018 11:36 AM Electronically Signed By:Ciara Brooks
--- NOTE | 2018-07-09 13:57 | PDCONSULT ---
Organizational Research Consultant Note: ASSESSMENT 28-year-old male with homelessness, bipolar mood disorder and alcohol dependence admitted with alcohol withdrawal seizure # ETOH withdrawal seizure. Status post phenobarb load in the emergency department. # pancreatitis. Mild # rash. Concerning for scabies. # bipolar mood disorder. Declines outpatient prescribed medications. He is noncompliant with his treatment regimen # marijuana abuse PLAN # status post IV phenobarbital load 950 mg in ED, will continues to give additional oral doses and as needed given withdrawal seizure and excellent interval improvement symptoms with phenobarbital # IV fluids for pancreatitis # permethrin cream for scabies # counseled on alcohol cessation. # Feeding - clear liquid diet # Analgesia none # Sedation none # Thromboprophylaxis - SQ hep # Head of bed elevated # Ulcer prophylaxis - not indicated # Glucose SSI # Skin no skin breakdown # Delirium - delirium precautions Chief complaint Seizure HPI As per Dr. Zuniga of [facility] to evaluate this patient for ICU care in the setting of alcohol withdrawal seizure and electrolyte abnormalities. Co is a 28-year-old homeless male well known to [facility] with recurrent admissions for alcohol withdrawal with withdrawal seizures in the setting of copious alcohol and cannabis abuse, bipolar mood disorder. Patient asleep present to the emergency department with abdominal pain, tremors, anxiety and said he took had a seizure. Last drink was 24 hr prior to admission. He denies fevers, chills, nausea, vomiting, hematemesis, hematochezia. Further history was unable to be obtained due to initial somnolence. Emergency emergency department he was given a fluid bolus and a phenobarbital bolus of 950 mg IV with immediate improvement withdrawal symptoms. He drinks approximately 1-2 L of vodka per day. Allergies Gabapentin Past medical history Bipolar mood disorder, PTSD, anxiety, alcohol dependence, pancreatitis, alcohol withdrawal seizures Medication Medication reconciliation was performed. See EMR for full details Social history Lives in [place] homeless residential. Intermittently smokes tobacco, marijuana, alcohol remote history of IV drug use Family history No history of recurrent withdrawal seizures Review of systems Complete review of systems unable to be obtained secondary to patient's mental status and cooperation Exam Heart rate 103, blood pressure 135/83, respiratory rate 24 96% on room air GEN: NAD, up in chair, interactive NEURO: Somnolent, arousable, interactive but intermittently not answering questions. No focal neurologic deficit. Mild tremors HEENT: PERRL, EOMI, MMM, OP clear NECK: supple, trachea midline CHEST normal shape, no pes excavatum CVS: rrr no m/r/g, no JVD appreciated PULM: CTAB, no wheezes/rales/rhonchi ABD: soft, NT, ND, NABS EXT: no swelling, no cyanosis, full ROM SKIN: Rash around waist band Concern for scabies PSYCH CAM negative, appropriate affect Labs Reviewed, potassium 4.0, bicarb 23, creatinine 0.8, glucose 143, lipase 693
[2018-07-09] MEDS ORDERED: PHENobarbital 30 MG TAB PO ONE (14:01)
[2018-07-09] MEDS ORDERED: LR 1,000 ML IV ONE (14:08)
[2018-07-09] MEDS: FAMOTIDINE 20 MG TAB PO SCH ×2 (14:34→20:57)
[2018-07-09] MEDS: ENOXAPARIN 40 MG/0.4 ML SYR SC SCH (14:34)
--- NOTE | 2018-07-09 16:45 | ASMTCMCOM ---
CM Note CM Note Notes: Patient admitted with ETOH use, has a hx of Bipolar, PTSD, Anxiety. He is currently homeless and stays at the [facility]. Patient will likely benefit from receiving follow-up resources for ETOH and possibly [facility] referral. Attempted to discuss case with RN, not available at the moment. CM will follow-up when able. Plan: Likely return to [facility] with resources Date Signed: 07/09/2018 04:44 PM Electronically Signed By:Dimple Subramanian RN
[2018-07-09] MEDS: LORazepam 1 MG TAB PO PRN (20:57)
[2018-07-09] MEDS: oxyCODONE IR 5 MG TAB PO PRN (22:33)
[2018-07-10] MEDS: LORazepam 1 MG TAB PO PRN ×2 (01:18→08:42)
[2018-07-10] MEDS ORDERED: POTASSIUM CL 20 MEQ TAB PO ONE (07:03)
[2018-07-10] MEDS: FOLIC ACID 1 MG TAB PO SCH (08:23)
[2018-07-10] MEDS: MULTIVITAMINS 1 EACH TAB PO SCH (08:23)
[2018-07-10] MEDS: FAMOTIDINE 20 MG TAB PO SCH (08:23)
[2018-07-10] MEDS: ENOXAPARIN 40 MG/0.4 ML SYR SC SCH (08:23)
[2018-07-10] MEDS: oxyCODONE IR 5 MG TAB PO PRN (08:42)
[2018-07-10 11:42] VITALS: BP 127/91
--- NOTE | 2018-07-10 16:34 | ASMTCMCOM ---
CM Note CM Note Notes: Met with pt briefly, he is homeless and has a history of etoh. CM provided him with clothes, shoes, a bus pass and a halfway bed. RN notified me that pt left out the back door without medications or dc paperwork. DC: Independent Date Signed: 07/10/2018 04:34 PM Electronically Signed By:Melina Tracy RN
--- NOTE | 2018-07-11 08:50 | GDS ---
[f rep st] DISCHARGE SUMMARY DISCHARGE DIAGNOSES: 1. Alcohol abuse with acute withdrawal. 2. Alcohol-induced pancreatitis. 3. Alcohol-induced hepatitis. 4. Scabies. 5. Homelessness. CONSULTANTS: Dr. Sudheer Ernandez, pulmonology/critical care. HISTORY OF DETAILS: Please see history and physical dated July 09, 2018. In brief, the patient is a 28-year-old homeless male with a history of alcohol abuse and a recent hospitalization for acute wi thdrawal, who returns to the emergency department in acute alcohol withdrawal with epigastric abdomin al pain. He was admitted to the step-down unit for further management. HOSPITAL COURSE: The patient received phenobarbital in the emergency department as well as an additi onal dose in the step-down unit. This significantly reduced his benzodiazepine need. His CIWA score on the morning of discharge has been 2-4. He has no tremor and feels well. His epigastric pain is completely resolved and he has tolerated a regular diet. He was treated for scabies with permethrin and given a prescription to repeat this treatment in 1 week. He has been [facility] to assist with a sobriety plan given his recurrent hospitalizations for ongoing alcohol withd mauricio issues. DISCHARGE PHYSICAL EXAMINATION: VITAL SIGNS: Stable. Blood pressure 127/91, heart rate 37, respira tory rate 16. He is 91% on room air. DISPOSITION: Patient is discharged to the homeless custodial in stable condition. FOLLOWUP: Patient is referred to [facility]. DISCHARGE MEDICATIONS: Please see [facility] for completed outpatient medication list. New medication s on discharge include Librium 25 mg p.o. t.i.d. for 1 day, then 25 mg p.o. b.i.d. for 1 day, then 25 mg once daily, then off. Multivitamin once daily, thiamine 100 mg p.o. daily, and permethrin cream application to be administered on July 16 to complete treatment for scabies. /[id number]/MODL
[2018-07-12] MEDS ORDERED: THIAMINE HCL 100 MG TAB PO SCH (06:59)
== END 2018-07-10 16:00 | disposition home or self-care (01) | DRG 775 ==
LOC: EDUNIT# → F2N 08:46 → F3E 07-10 08:18
PROVIDERS: ADMIT Student in an Organized Health Care Education/Training Program; ATTEND Hospitalist
DX: F10.239 Alcohol dependence with withdrawal, unspecified (principal); R56.9 Unspecified convulsions; K85.20 Alcohol induced acute pancreatitis without necrosis or infection; K70.10 Alcoholic hepatitis without ascites; F43.10 Post-traumatic stress disorder, unspecified; F31.9 Bipolar disorder, unspecified; B86 Scabies; F12.10 Cannabis abuse, uncomplicated; Z59.0 Homelessness
CPT/HCPCS: 96374; 97161-GP; J1650; J2060; J2560

== ENCOUNTER 2018-08-02 18:46 | Inpatient (IN) | payer MEDICAID ==
--- NOTE | 2018-08-02 18:38 | EDPHY ---
H & P Time Seen by Provider: 08/02/18 18:55 Constitutional: Initial Vital Signs Temperature (C) 36.7 C 08/02/18 18:45 Heart Rate 101 H 08/02/18 18:45 Respiratory Rate 18 08/02/18 18:45 Blood Pressure 139/115 H 08/02/18 18:45 O2 Sat (%) 90 L 08/02/18 18:45 O2 Delivery Mode Nasal Cannula O2 (L/minute) 3 Allergies/Adverse Reactions: gabapentin [From Neurontin] Allergy (Verified 08/02/18 18:59) Home Medications: Medication Instructions Recorded Unobtainable 08/02/18 Medical Decision Making ED Course/Re-evaluation: CHIEF COMPLAINT: Abdominal pain, vomiting HISTORY OF PRESENT ILLNESS: The patient is a 28 y/o male with a history of alcoholism, pancreatitis, and anxiety arriving via EMS for abdominal pain and vomiting. The patient is unable to elaborate information regarding this pain. He does admit to drinking alcohol today. He received 4mg IV Zofran while en route to the hospital. No fever, headache, body aches, lightheadedness, chest pain, heart palpitations, shortness of breath, cough, urinary or bowel complaints, numbness, paresthesias. REVIEW OF SYSTEMS: A comprehensive 10 system review of systems is otherwise negative aside from elements mentioned in the history of present illness and medical decision making. PHYSICAL EXAM: HR, BP, O2 Sat, RR. Temp noted General Appearance: Actively vomiting, appears intoxicated, alert, well hydrated, appropriate, and non-toxic appearing. Head: Atraumatic without scalp tenderness or obvious injury Eyes: Pupils equal, round, reactive to light and accommodation, EOMI, no trauma , no injection. Ears: Clear bilaterally, no perforation, normal landmarks Nose: Atraumatic, no rhinorrhea, clear. Throat: There is no erythema or exudates, no lesions, normal tonsils, mucus membranes moist. Neck: Supple, 2+ carotid upstroke, nontender, no lymphadenopathy. Respiratory: No retractions, no distress, no wheezes, and no accessory muscle use. Lungs are clear to auscultation bilaterally. Cardiovascular: Regular rate and rhythm, no murmurs, rubs, or gallops. Bilateral carotid, radial, dorsalis pedis, and posterior tibial pulses intact. Good capillary refill all extremities. Gastrointestinal: Abdomen is soft, nontender, non-distended, no masses, no rebound, no guarding, no peritoneal signs. Musculoskeletal: Normal active ROM of all extremities, atraumatic. Neurological: Alert, appropriate, and interactive. The patient has normal DTRs and non-focal cranial nerves, motor, sensory, and cerebellar exam. Skin: No rashes, good turgor, no nodules on palpation. PAST MEDICAL HISTORY: Hypertension,pancreatitis, anxiety, PTSD, alcoholism with withdrawal seizures PAST SURGICAL HISTORY: Denies SOCIAL HISTORY: Transient, single, not employed DIAGNOSTICS/PROCEDURES/CRITICAL CARE TIME: Not indicated DIFFERENTIAL DIAGNOSIS: The differential diagnosis for the patient's abdominal pain included but was not limited to pancreatitis, alcohol withdrawal, appendicitis, cholecystitis, hernias, testicular torsion, gastritis, and urinary tract infection. MEDICAL DECISION MAKING: The patient is a 28 y/o male with a history of alcoholism, pancreatitis, and anxiety arriving via EMS for abdominal pain and vomiting. He received 4mg IV Zofran while en route to the hospital. On exam he appears intoxicated and is actively vomiting. Labs ordered. 1925: Reassessed patient and discussed labs.He is still nauseated and anxious; 1L IV NS, 4mg PO Zofran and 1mg PO Ativan administered. 2049: Patient's lipase is 4939; he will need to be admitted. 2050: I consulted with the hospitalist service, Dr. Golden accepts admission of this patient for his pancreatitis and elevated lipase. - Data Points Laboratory Results: Laboratory Results 08/02/18 18:55 08/02/18 18:55 08/02/18 08/02/18 08/02/18 18:55 18:55 18:55 WBC 9.83 10^3/uL H 10^3/uL (3.80-9.50) RBC 5.16 10^6/uL 10^6/uL (4.40-6.38) Hgb 17.4 g/dL g/dL (13.7-17.5) Hct 47.8 % % (40.0-51.0) MCV 92.6 fL fL (81.5-99.8) MCH 33.7 pg pg (27.9-34.1) MCHC 36.4 g/dL g/dL (32.4-36.7) RDW 12.6 % % (11.5-15.2) Plt Count 168 10^3/uL 10^3/uL (150-400) MPV 10.2 fL fL (8.7-11.7) Neut % (Auto) 85.8 % H % (39.3-74.2) Lymph % (Auto) 7.2 % L % (15.0-45.0) [place] % (Auto) 6.1 % % (4.5-13.0) Eos % (Auto) 0.0 % L % (0.6-7.6) Baso % (Auto) 0.5 % % (0.3-1.7) Nucleat RBC Rel Count 0.0 % % (0.0-0.2) Absolute Neuts (auto) 8.43 10^3/uL H 10^3/uL (1.70-6.50) Absolute Lymphs (auto) 0.71 10^3/uL L 10^3/uL (1.00-3.00) Absolute Monos (auto) 0.60 10^3/uL 10^3/uL (0.30-0.80) Absolute Eos (auto) 0.00 10^3/uL L 10^3/uL (0.03-0.40) Absolute Basos (auto) 0.05 10^3/uL 10^3/uL (0.02-0.10) Absolute Nucleated RBC 0.00 10^3/uL 10^3/uL (0-0.01) Immature Gran % 0.4 % % (0.0-1.1) Immature Gran # 0.04 10^3/uL 10^3/uL (0.00-0.10) PT 12.3 SEC SEC (12.0-15.0) INR 0.95 (0.83-1.16) APTT 34.2 SEC SEC (23.0-38.0) Sodium 137 mEq/L mEq/L (135-145) Potassium 4.0 mEq/L mEq/L (3.5-5.2) Chloride 88 mEq/L L mEq/L (97-110) Carbon Dioxide 27 mEq/l mEq/l (22-31) Anion Gap 22 mEq/L H mEq/L (6-14) BUN 11 mg/dL mg/dL (7-23) Creatinine 0.6 mg/dL L mg/dL (0.7-1.3) Estimated GFR > 60 Glucose 121 mg/dL H mg/dL (70-100) Calcium 8.9 mg/dL mg/dL (8.5-10.4) Total Bilirubin 1.2 mg/dL mg/dL (0.1-1.4) Conjugated Bilirubin 0.8 mg/dL H mg/dL (0.0-0.5) Unconjugated Bilirubin 0.4 mg/dL mg/dL (0.0-1.1) AST 274 IU/L H IU/L (17-59) ALT 210 IU/L H IU/L (21-72) Alkaline Phosphatase 205 IU/L H IU/L (38-126) Total Protein 7.9 g/dL g/dL (6.3-8.2) Albumin 4.7 g/dL g/dL (3.5-5.0) Lipase 4939 IU/L H IU/L (23-300) Ethyl Alcohol 401 mg/dL H* mg/dL (0-10) Medications Given: Discontinued Medications Sodium Chloride (Ns) 1,000 mls @ 0 mls/hr IV EDNOW ONE; Wide Open PRN Reason: Protocol Stop: 08/02/18 19:26 Last Admin: 08/02/18 19:29 Dose: 1,000 mls Lorazepam (Ativan Injection) 1 mg IVP EDNOW ONE Stop: 08/02/18 19:26 Last Admin: 08/02/18 19:29 Dose: 1 mg Ondansetron HCl (Zofran) 4 mg IVP EDNOW ONE Stop: 08/02/18 19:26 Last Admin: 08/02/18 19:29 Dose: 4 mg Departure - Departure Disposition: [facility] Inpatient Acute Clinical Impression: Elevated lipase Vomiting Qualifiers: Vomiting type: unspecified Vomiting Intractability: intractable Nausea presence : with nausea Qualified Code(s): R11.2 - Nausea with vomiting, unspecified Abdominal pain Qualifiers: Abdominal location: generalized Qualified Code(s): R10.84 - Generalized abdominal pain Alcohol intoxication Qualifiers: Complication of substance-induced condition: uncomplicated Qualified Code(s): F10.920 - Alcohol use, unspecified with intoxication, uncomplicated Pancreatitis Qualifiers: Chronicity: acute Pancreatitis type: alcohol induced Acute pancreatitis complication: unspecified Qualified Code(s): K85.20 - Alcohol induced acute pancreatitis without necrosis or infection Alcohol withdrawal Qualifiers: Complication of substance-induced condition: uncomplicated Qualified Code(s): F10.230 - Alcohol dependence with withdrawal, uncomplicated Condition: Good Report Scribed for: Kristofer Davila Report Scribed by: Audra Lance Date of Report: 08/02/18 Time of Report: 18:40
[2018-08-02 19:06] LABS: PLATELET COUNT 168 10^3/uL (150-400)
[2018-08-02 19:14] LABS: INR 0.95 (0.83-1.16); PROTIME(PATIENT) 12.3 SEC (12.0-15.0)
[2018-08-02] MEDS ORDERED: NS 1,000 ML IV ONE (19:25)
[2018-08-02] MEDS ORDERED: ONDANSETRON 4 MG/2 ML VIAL IVP ONE (19:25)
[2018-08-02] MEDS ORDERED: LORazepam 2 MG/ML INJ IVP ONE (19:25)
[2018-08-02] MEDS ORDERED: HYDROmorphONE/DILAUDID 1 MG/ML INJ IVP PRN (21:05)
[2018-08-02] MEDS ORDERED: ONDANSETRON DISINTEGRATING 4 MG TAB PO PRN (21:05)
[2018-08-02] MEDS ORDERED: NS 500 ML IV PRN (21:05)
[2018-08-02] MEDS ORDERED: MAG HYDROX/AL HYDROX/SIMETH 30 ML UDCUP PO PRN (21:05)
[2018-08-02] MEDS ORDERED: oxyCODONE IR 5 MG TAB PO PRN (21:05)
[2018-08-02] MEDS ORDERED: FLUMAZENIL 0.5 MG/5 ML MDV IVP PRN (21:05)
[2018-08-02] MEDS ORDERED: PROMETHAZINE HCL 25 MG/ML INJ IVP ONE (21:09)
[2018-08-02] MEDS ORDERED: PROMETHAZINE HCL 25 MG/ML INJ ONE (21:10)
[2018-08-02] MEDS ORDERED: PHENobarbital NA 130 MG/ML VIAL IVP ONE (21:15)
--- NOTE | 2018-08-02 21:19 | PDGENHP ---
History and Physical - Chief Complaint abdominal pain/n/v - History of Present Illness 28 yo M with PMH that includes etoh abuse and withdrawal including severe withdrawal with DTs and withdrawal seizure, recurrent alcohol induced pancreatitis and alcoholic hepatitis presenting with complaints of abdominal pain, nausea and vomiting. Patient notes that he has been trying to cut down in his drinking and that while he previously drank about 1/2 gallon/day of vodka he has cut down to more like 1 pint per day. He presents with a BAL of 400 however, appears sober, and states that he is already beginning to experience tremulousness and anxiety consistent with his usual withdrawal sxs. He notes he has had abdominal pain, n/v that has been getting progressively worse over the course of the day today. He notes it is similar to his prior sxs of pancreatitis. In ER it was noted that his lipase was nearly 5000, his last hospitalization it was only in the 600s and at that time he complained of similar issues. He also notes that he has not had a BM in at least 3 days. History Information - Allergies/Home Medication List Allergies/Adverse Reactions: gabapentin [From Neurontin] Allergy (Verified 08/02/18 18:59) Home Medications: NK [No Known Home Meds] 08/02/18 [Last Taken Unknown] I have personally reviewed and updated: family history, medical history, social history, surgical history - Past Medical History psychiatric history Additional medical history: Bipolar disorder, PTSD, anxiety, alcohol dependence/ pancreatitis, withdrawal seizures, alcoholic hepatitis, MSSA bacteremia related to superficial thrombophlebitis - Surgical History Reports: no pertinent surgical hx - Family History Additional family history: Diabetes in grandparents. Grandfather with history of stroke and NC. mother - Crohn's. etoh, bipolar, anxiet/depression - Social History Smoking Status: Current every day smoker Alcohol Use: Heavy Drug Use: Marijuana, Other (prior IVDA) Additional social history: Patient is currently homeless. Recently relocated from [place]. Review of Systems Review of Systems: ROS: 10pt was reviewed & negative except for what was stated in HPI & below Physical Exam Physical Exam: Temp Pulse Resp BP Pulse Ox 36.7 C 111 H 19 138/98 H 99 08/02/18 18:45 08/02/18 20:20 08/02/18 20:20 08/02/18 20:20 08/02/18 20:20 Constitutional: uncomfortable, unkempt Eyes: PERRL, anicteric sclera Ears, Nose, Mouth, Throat: poor dentition, dry mucous membranes Cardiovascular: no murmur, rub, or gallop, tachycardia, No edema Respiratory: no respiratory distress, no rales or rhonchi Gastrointestinal: tenderness, No normoactive bowel sounds, No guarding, No rebound Genitourinary: no bladder tenderness Skin: warm, normal color Musculoskeletal: no muscle tenderness, No asymmetric calves Neurologic: AAOx3 Psychiatric: interacting appropriately, not anxious, not encephalopathic Lab Data & Imaging Review 08/02/18 18:55 08/02/18 18:55 WBC 9.83 10^3/uL (3.80-9.50) H 08/02/18 18:55 RBC 5.16 10^6/uL (4.40-6.38) 08/02/18 18:55 Hgb 17.4 g/dL (13.7-17.5) 08/02/18 18:55 Hct 47.8 % (40.0-51.0) 08/02/18 18:55 MCV 92.6 fL (81.5-99.8) 08/02/18 18:55 MCH 33.7 pg (27.9-34.1) 08/02/18 18:55 MCHC 36.4 g/dL (32.4-36.7) 08/02/18 18:55 RDW 12.6 % (11.5-15.2) 08/02/18 18:55 Plt Count 168 10^3/uL (150-400) 08/02/18 18:55 MPV 10.2 fL (8.7-11.7) 08/02/18 18:55 Neut % (Auto) 85.8 % (39.3-74.2) H 08/02/18 18:55 Lymph % (Auto) 7.2 % (15.0-45.0) L 08/02/18 18:55 [place] % (Auto) 6.1 % (4.5-13.0) 08/02/18 18:55 Eos % (Auto) 0.0 % (0.6-7.6) L 08/02/18 18:55 Baso % (Auto) 0.5 % (0.3-1.7) 08/02/18 18:55 Nucleat RBC Rel Count 0.0 % (0.0-0.2) 08/02/18 18:55 Absolute Neuts (auto) 8.43 10^3/uL (1.70-6.50) H 08/02/18 18:55 Absolute Lymphs (auto) 0.71 10^3/uL (1.00-3.00) L 08/02/18 18:55 Absolute Monos (auto) 0.60 10^3/uL (0.30-0.80) 08/02/18 18:55 Absolute Eos (auto) 0.00 10^3/uL (0.03-0.40) L 08/02/18 18:55 Absolute Basos (auto) 0.05 10^3/uL (0.02-0.10) 08/02/18 18:55 Absolute Nucleated RBC 0.00 10^3/uL (0-0.01) 08/02/18 18:55 Immature Gran % 0.4 % (0.0-1.1) 08/02/18 18:55 Immature Gran # 0.04 10^3/uL (0.00-0.10) 08/02/18 18:55 PT 12.3 SEC (12.0-15.0) 08/02/18 18:55 INR 0.95 (0.83-1.16) 08/02/18 18:55 APTT 34.2 SEC (23.0-38.0) 08/02/18 18:55 Sodium 137 mEq/L (135-145) 08/02/18 18:55 Potassium 4.0 mEq/L (3.5-5.2) 08/02/18 18:55 Chloride 88 mEq/L (97-110) L 08/02/18 18:55 Carbon Dioxide 27 mEq/l (22-31) 08/02/18 18:55 Anion Gap 22 mEq/L (6-14) H 08/02/18 18:55 BUN 11 mg/dL (7-23) 08/02/18 18:55 Creatinine 0.6 mg/dL (0.7-1.3) L 08/02/18 18:55 Estimated GFR > 60 08/02/18 18:55 Glucose 121 mg/dL (70-100) H 08/02/18 18:55 Calcium 8.9 mg/dL (8.5-10.4) 08/02/18 18:55 Total Bilirubin 1.2 mg/dL (0.1-1.4) 08/02/18 18:55 Conjugated Bilirubin 0.8 mg/dL (0.0-0.5) H 08/02/18 18:55 Unconjugated Bilirubin 0.4 mg/dL (0.0-1.1) 08/02/18 18:55 AST 274 IU/L (17-59) H 08/02/18 18:55 ALT 210 IU/L (21-72) H 08/02/18 18:55 Alkaline Phosphatase 205 IU/L (38-126) H 08/02/18 18:55 Total Protein 7.9 g/dL (6.3-8.2) 08/02/18 18:55 Albumin 4.7 g/dL (3.5-5.0) 08/02/18 18:55 Lipase 4939 IU/L (23-300) H 08/02/18 18:55 Ethyl Alcohol 401 mg/dL (0-10) H* 08/02/18 18:55 Visualized and Interpreted imaging results: Yes Interpretation: abd CT 2018: acute pancreatitis, hepatic steatosis Assessment & Plan Assessment: Abdominal pain (Acute) Alcohol intoxication (Acute) Alcohol withdrawal (Acute) Elevated lipase (Acute) Pancreatitis (Acute) Vomiting (Acute) 28 yo M w/PMH of etoh abuse and dependence with hx of severe withdrawal as well as recurrent pancreatitis presenting with abdominal pain, nausea and vomiting and acute pancreatitis # acute alcohol induced pancreatitis: with lipase of nearly 5000, abdominal pain and decreased bowel sounds. In the setting of continued heavy etoh use, although patient reports cutting down on alcohol ingestion his BAL and evident lack of intoxication with that suggest otherwise. Will treat conservatively with IVF, pain medication, antiemetics and bowel rest. Patient understands and agrees with this plan. # alcohol use disorder and withdrawal: patient with hx of prior severe withdrawal, currently developing withdrawal sxs with BAL of 400. Last hospitalization he responded well to phenobarbital load--ordered 800mg phenobarbital and can continue lower doses prn if needed in am. Started on CIWA protocol, mvi, thiamine, folate. # alcoholic hepatitis: with ast/alt in the 200s but essentially normal bili and coags, will trend lfts # anxiety/ptsd/depression/bipolar: patient reports previously being on medication for these issues including seroquel and trazodone but not on any medications currently and on review of recent hospitalizations was not on medications then either. Undoubtedly contributing to his etoh abuse, would benefit from Melina mahan if he remains in house until Sunday # constipation: bowel protocol # hx of MSSA bacteremia and superficial thrombophlebitis # IP status, will likely require > 48 hours stay given high risk for severe withdrawal and acute pancreatitis Patient new to my care. Old records reviewed and summarized as above. Care plan reviewed with ER doctor as above.
[2018-08-02] MEDS ORDERED: LACTULOSE 20 GM/30 ML UDCUP PO PRN (21:22)
[2018-08-02] MEDS ORDERED: MAGNESIUM HYDROXIDE 30 ML UDCUP PO PRN (21:22)
[2018-08-02] MEDS ORDERED: BISACODYL 10 MG SUPP PR PRN (21:22)
[2018-08-02] MEDS ORDERED: POLYETHYLENE GLYCOL 3350 17 GM PKT PO PRN (21:22)
[2018-08-02] MEDS: NS 1,000 ML IV SCH ×3 (21:59→22:05)
[2018-08-02] MEDS ORDERED: PHENOBARBITAL NA IV ONE (22:00)
[2018-08-02] MEDS ORDERED: NS IV ONE (22:00)
[2018-08-02] MEDS: LORazepam 2 MG/ML INJ IVP PRN ×2 (22:18→22:22)
[2018-08-03] MEDS: LORazepam 2 MG/ML INJ IVP PRN ×7 (01:25→23:59)
[2018-08-03] MEDS: PROMETHAZINE HCL 25 MG/ML INJ IVP PRN (03:19)
[2018-08-03 05:48] LABS: PLATELET COUNT 114 10^3/uL (150-400)
[2018-08-03] MEDS: NS 1,000 ML IV SCH ×2 (06:33→08:19)
[2018-08-03] MEDS ORDERED: PROTOCOL MAGNESIUM 1 DOSE IV PRN ×2 (09:12→09:49)
[2018-08-03] MEDS ORDERED: PROTOCOL POTASSIUM 1 DOSE MISC PRN (09:49)
[2018-08-03] MEDS: THIAMINE HCL 500 MG in NS 100 ML IV SCH (09:59)
[2018-08-03] MEDS: ENOXAPARIN 40 MG/0.4 ML SYR SC SCH (09:59)
[2018-08-03] MEDS: FAMOTIDINE 20 MG/NACL 50 ML IV SCH ×2 (09:59→19:52)
[2018-08-03] MEDS: DEXMEDETOMIDINE HCL 400 MCG in NS 100 ML IV SCH ×3 (09:59→19:52)
[2018-08-03] MEDS: FOLIC ACID 1 MG TAB PO SCH (10:11)
[2018-08-03] MEDS: MULTIVITAMINS 1 EACH TAB PO SCH (10:11)
[2018-08-03] MEDS: SENNOSIDES/DOCUSATE SODIUM TAB PO SCH ×2 (10:12→20:58)
[2018-08-03] MEDS ORDERED: MAGNESIUM SULF 1 GM/DEXTROSE 100 ML IV ONE (10:15)
[2018-08-03] MEDS: POTASSIUM Cl (KCl) 100 ML IV SCH ×5 (11:55→21:09)
[2018-08-03] MEDS: ACETAMINOPHEN 325 MG TAB PO PRN ×2 (12:35→18:23)
--- NOTE | 2018-08-03 12:35 | ASMTCMCOM ---
CM Note CM Note Notes: Pt is a 28 yo M who presents with Pancreatitis and ETOH abuse. Pt has a history of Bipolar Disorder, PTSD, anxiety, ETOH dependence, reoccuring alcohol pancreatitis, and alcohol hepatitis. Pt has had numerous admissions to [facility] for similar presentation. Pt last left the hospital without discharge ppwk. Pt has low compliance with outpatient providers, no PCP listed. Pt's last admission he came from [facility]. CM left message for [facility] requesting information if he is able to return. CM to follow. Pt needs CAGE/MHP linkage prior to dc. Plan: TBD Date Signed: 08/03/2018 12:34 PM Electronically Signed By:JUNIE Castrejon
--- NOTE | 2018-08-03 12:36 | PDMN ---
Medical Necessity Medical necessity: Pt meets IP criteria per MD & MCG M-250; est los >2 mn for eval/tx of pancreatitis w/lipase of nearly 5000, abdominal pain & decreased bowel sounds in the setting of heavy etoh use; admit for IVFs, pain management, IV antiemetics, bowel rest & CIWA protocol; hx severe alcohol withdrawal, recurrent pancreatitis; per H&P & order 08/02/18
[2018-08-03] MEDS: LORazepam 2 MG/ML INJ IVP SCH ×3 (13:56→21:14)
[2018-08-03] MEDS ORDERED: PROTOCOL K PHOSPHATE 1 DOSE IV PRN (14:01)
--- NOTE | 2018-08-03 16:18 | GCON ---
[f rep st] CONSULTATION PULMONOLOGY/CRITICAL CARE CONSULTATION DATE OF CONSULTATION: 08/03/2018 REASON FOR CONSULTATION: Intensive care unit evaluation and management of alcohol withdrawal and alc oholic pancreatitis. HISTORY: The patient is a 28-year-old, homeless, chronic alcoholic with a history of DTs and withdra wal seizures in the past, alcoholic pancreatitis, and alcoholic hepatitis, admitted yesterday with ab dominal pain, nausea and vomiting. Blood alcohol on admission was 400. He was admitted as he was be ginning to withdraw and because he had persistent nausea, vomiting and abdominal pain. Lipase was 50 0. PAST MEDICAL HISTORY: Remarkable for issues related to alcohol abuse. He smokes as well daily, 1-1/ 2 to 1 packs of cigarettes per day. SOCIAL HISTORY: As above. FAMILY HISTORY: Unobtainable from the patient. Anxiety, depression, alcoholism, etcetera, listed in the H and P from others. REVIEW OF SYSTEMS: Unobtainable currently from the patient as he is quite sedated. PHYSICAL EXAMINATION: GENERAL: Somewhat unkept young man who is in no acute distress. He is arousa ble, oriented to person and hospital. VITAL SIGNS: Blood pressure is 112/75, heart rate 105 with si nus tachycardia on the monitor. Respiratory rate is 20. He is on 4 L saturations of 97%. He is feb rile to 39.2. HEENT/NECK: Unremarkable for lymphadenopathy or thyromegaly. Pupils appear equal. M ucous membranes are dry. There is no jugular venous distention. CHEST: Clear. Breath sounds are s omewhat distant. With voluntary cough, there is some central airway congestion. HEART: Tachycardic . There is a soft systolic murmur. No gallop. ABDOMEN: Somewhat distended and tender. Hepatomega ly is difficult to assess. Bowel sounds are present, but markedly diminished. EXTREMITIES: Unremar kable for significant edema, rash or significant lesions. NEUROLOGIC: Remarkable for somnolence. H e does arouse, responds to simple questions. He is being sedated with Precedex and receiving schedul ed Ativan. IMAGING STUDIES: Chest x-ray on admission showed hypoventilatory changes with some mild bibasilar at electasis. Abdominal ultrasound shows hepatomegaly and mild splenomegaly. The visualized portions o f the pancreas appeared normal. LABORATORY DATA: White blood cell count is 7000, hematocrit 41.8, platelets are 114,000. PT and PTT were normal on admission. Sodium is 138, potassium 3.6, initial CO2 27 with an anion gap of 22, cre atinine 0.7, BUN 9, glucose is 81, calcium 7.8, phosphorus 2.9, magnesium 1.5, total bilirubin 0.9, A ST 222, ALT 157. Albumin 3.7. Lipase on admission 4939. ASSESSMENT: 1. Chronic and acute alcoholism. 2. Alcohol withdrawal, severe: He is requiring Precedex. He is on the CIWA protocol, receiving thi amine, etcetera. 3. History of alcohol withdrawal seizures: He will be kept on scheduled Ativan, 1 mg q.4 hours intr avenously for now. 4. Pancreatitis: Associated with abdominal pain, nausea and vomiting. This has subsided with initi al treatment. Intravenous fluids are being given. 5. Metabolic: At risk for metabolic abnormalities associated with chronic alcoholism. He is on rep lacement protocols. 6. Gastrointestinal prophylaxis: On famotidine. Some of his nausea and vomiting may be secondary t o alcoholic gastritis as well. RECOMMENDATIONS: The patient will be kept in the intensive care unit on step-down status for now. C IWA protocol will be continued. Intravenous fluids will be continued. Precedex will be weaned when tolerated. Scheduled Ativan will be continued for now. Laboratory and electrolytes will be followed . A nicotine patch will be prescribed. Followup chest x-ray will be obtained in a.m. Further plans and recommendations will be made based on his progress over the next 12 to 24 hours. /[id number]/MODL
--- NOTE | 2018-08-03 17:02 | HOSPPROG ---
Hospitalist Progress Note Assessment/Plan: * Etoh withdrawal -high dose IV ativan required - IV precedex gtt added * Fever -cultures sent * Etoh pancreatitis -NPO * Toxic/metabolic encephalopathy -arousable but otherwise not interactive at this time * Etoh hepatitis * Anxiety/depression/PTSD/Bipolar -refer to psych outpatient Subjective: somnolent and only breifly arousable Objective: Vital Signs Temp Pulse Resp BP Pulse Ox 37.3 C 94 24 H 114/73 98 08/03/18 15:48 08/03/18 15:48 08/03/18 15:48 08/03/18 15:48 08/03/18 15:48 Laboratory Results 08/03/18 05:16 08/03/18 05:16 08/02/18 08/03/18 08/04/18 05:59 05:59 05:59 Intake Total 2250 Output Total 540 425 Balance 1710 -425 PT 12.3 SEC (12.0-15.0) 08/02/18 18:55 INR 0.95 (0.83-1.16) 08/02/18 18:55 CXR viewed, my personal interpretation is - low lung volume, no infiltrate abd us - fatty liver - Physical Exam Constitutional: no apparent distress, appears nourished, not in pain Cardiovascular: regular rate and rhythym, no murmur, rub, or gallop Respiratory: no respiratory distress, no rales or rhonchi, clear to auscultation Gastrointestinal: normoactive bowel sounds, soft, non-tender abdomen, no palpable masses Neurologic: No AAOx3 Psychiatric: encephalopathic, poor insight, poor judgement, poor memory, No interacting appropriately, No agitated ICD10 Worksheet Patient Problems: Problems Problem Status Onset Acute alcoholic pancreatitis Acute Alcohol withdrawal Acute Alcohol abuse Acute Alcoholic pancreatitis Acute Contusion of right elbow Acute Contusion of left knee Acute Hepatitis Acute Alcoholic ketoacidosis Acute Vomiting Acute Abdominal pain Acute Alcohol intoxication Acute Pancreatitis Acute Elevated lipase Acute
[2018-08-03] MEDS: NICOTINE 21 MG/24 HR PATCH TD SCH (17:49)
[2018-08-03] MEDS: ONDANSETRON 4 MG/2 ML VIAL IVP PRN (18:02)
[2018-08-04] MEDS: LORazepam 2 MG/ML INJ IVP SCH ×2 (02:39→06:00)
[2018-08-04] MEDS: DEXMEDETOMIDINE HCL 400 MCG in NS 100 ML IV SCH ×3 (02:41→19:57)
[2018-08-04] MEDS: LORazepam 2 MG/ML INJ IVP PRN ×3 (02:47→08:19)
--- NOTE | 2018-08-04 03:38 | HOSPPROG ---
Hospitalist Progress Note Assessment/Plan: XC: Notified by micro lab of / blood cultures positive for Strep Pyogenes. Will start ceftriaxone 2 g IV q24h. Objective: Vital Signs Temp Pulse Resp BP Pulse Ox 38.7 C H 96 26 H 129/84 H 94 08/04/18 02:00 08/04/18 02:00 08/04/18 02:00 08/04/18 02:00 08/04/18 02:00 Laboratory Results 08/03/18 05:16 08/03/18 18:45 08/02/18 08/03/18 08/04/18 05:59 05:59 05:59 Intake Total 2250 2391.5 Output Total 540 675 Balance 1710 1716.5 PT 12.3 SEC (12.0-15.0) 08/02/18 18:55 INR 0.95 (0.83-1.16) 08/02/18 18:55 ICD10 Worksheet Patient Problems: Problems Problem Status Onset Acute alcoholic pancreatitis Acute Alcohol withdrawal Acute Alcohol abuse Acute Alcoholic pancreatitis Acute Contusion of right elbow Acute Contusion of left knee Acute Hepatitis Acute Alcoholic ketoacidosis Acute Vomiting Acute Abdominal pain Acute Alcohol intoxication Acute Pancreatitis Acute Elevated lipase Acute
[2018-08-04 05:32] LABS: PLATELET COUNT 82 10^3/uL (150-400)
[2018-08-04] MEDS ORDERED: MAGNESIUM SULF 1 GM/DEXTROSE 100 ML IV ONE (06:00)
[2018-08-04] MEDS: POTASSIUM Cl (KCl) 100 ML IV SCH ×2 (06:01→08:11)
[2018-08-04] MEDS: THIAMINE HCL 500 MG in NS 100 ML IV SCH (08:21)
[2018-08-04] MEDS: SENNOSIDES/DOCUSATE SODIUM TAB PO SCH ×2 (08:21→21:54)
[2018-08-04] MEDS: NICOTINE 21 MG/24 HR PATCH TD SCH (08:21)
[2018-08-04] MEDS: MULTIVITAMINS 1 EACH TAB PO SCH (08:21)
[2018-08-04] MEDS: FOLIC ACID 1 MG TAB PO SCH (08:21)
[2018-08-04] MEDS: FAMOTIDINE 20 MG/NACL 50 ML IV SCH (08:22)
[2018-08-04] MEDS: ENOXAPARIN 40 MG/0.4 ML SYR SC SCH (08:22)
[2018-08-04] MEDS: PENICILLIN G POTASSIUM 4,000,000 UNIT in D5W 100 ML IV SCH ×4 (11:34→21:56)
--- NOTE | 2018-08-04 11:35 | GCON ---
[f rep st] CONSULTATION INFECTIOUS DISEASE CONSULTATION DATE OF CONSULTATION: 08/04/2018 REASON FOR CONSULT: To assist in the management of this unfortunate 28-year- old male, admitted with alcohol withdrawal, alcoholic hepatitis and pancreatitis , and found to have group A strep bacteremia. HISTORY OF PRESENT ILLNESS: The patient is a 28-year-old male whose previous medical history is notable for the followin. Homelessness: The patient moved from [place] in the summer of last year and has been homeless since then. 2. Alcoholism: The patient is a severe alcoholic and has been admitted multiple times for withdrawal seizures and alcoholic pancreatitis and hepatitis. Most recent admission was in June. 3. Hypertension. 4. Admission to [facility] December 2017 for low-grade MSSA bacteremia secondary to a right arm superficial thrombophlebitis. 5. History of psoriasis. 6. History of scabies. 7. Tobacco use disorder. Regarding his present issues, the patient was brought in by EMS to [facility] on August 02 in the evening, complaining of abdominal pain and vomiting. He was found to have an ethyl alcohol level of 401 and a lipase of 4939. He did not have a significantly elevated white blood cell count at the time, and temperature on the day of admission was as high as 38 degrees. Unfortunately the patient spiked a temperature yesterday afternoon to 103 degrees. Blood cultures were sent and last night grew group A strep. The on- call hospitalist started ceftriaxone 2 g IV daily, which he has received 1 dose. I am now asked to assist in his management. The patient is somnolent but could provide a minimal history. He states that he has been chronically homeless and drinking an excessive amount of alcohol. He adamantly denies any intravenous drug use of any sort although he admits to using intravenous heroin 2 years ago. He states that he only drinks alcohol and uses marijuana presently. He states he has a very mild sore throat but nothing excessive. He denies any rash. He states he has had a cough that he attributes to smoking. He states that he has been feeling unwell for approximately 2-3 days prior to admission. He is sleeping on the street. REVIEW OF SYSTEMS: Very difficult to obtain given his somnolence. PREVIOUS MEDICAL HISTORY: As outlined above. ALLERGIES: Gabapentin: When I asked the patient about this, he told me "it made my legs swell." MEDICATIONS: Presently include ceftriaxone 2 g IV daily, folate, Dilaudid, Precedex, Zofran, Phenergan, Senokot, thiamine, and vitamin B1. SOCIAL HISTORY: The patient is originally from [place] but moved here last summer. He is homeless and unemployed. He admits to drinking excessively. Could not quantify for me today. Marijuana use. History of intravenous drug use 2 years ago with heroin. He smokes tobacco heavily as well. No recent travel within or outside the [place]. He does not have any pets. PHYSICAL EXAM: VITAL SIGNS: T current is 38.8, T-max 39.2, heart rate 102, blood pressure 125/82. He is not on any pressors. GENERAL: Disheveled, somnolent male, in bed, nontoxic appearing. HEENT: Atraumatic, normocephalic. Pupils are equal, round, and reactive. Mild conjunctival injection bilaterally. No petechiae. There is no discharge from the nares or sinus process tenderness. I was able to use a tongue depressor and see his oropharynx. His uvula is midline. There is no posterior oropharyngeal erythema or evidence of swollen tonsils or fullness to suggest parapharyngeal or retropharyngeal abscess. His dentition is in poor repair. Trachea is midline. No cervical or supraclavicular adenopathy. CARDIOVASCULAR: S1, S2. No rubs, gallops, or murmurs audible. LUNGS: No increased respiratory effort. Clear to auscultation bilaterally although poor inspiratory effort. No wheeze or rhonchi audible. ABDOMEN: No distention. No Dallas Nunez sign. There is a very small erythematous patch on his lower left abdomen that blanches. His abdomen is diffusely tender. No stigmata of end-stage liver disease, with no caput medusae or evidence of ascites. GENITAL: The patient has a circumcised phallus, with no penile discharge or other lesions noted. EXTREMITIES: No clubbing, cyanosis, or edema. No lower extremity edema. The patient looks as if he has not showered. His hands are somewhat caked in dirt. His right hand dorsum 4th MCP joint is notable for a small superficial ulceration that is tender, with a minimal amount of erythema. No swelling of the digit at all, no vesicles. There are no track montero on his arms. SKIN: Notable for some psoriatic patches on his scalp as well as a patch on his right knee and the lesion on the dorsum of his hand on the right. No stigmata of endocarditis. Back is under whelming, with no evident abnormality. Buttocks are normal, and perianal region looks fine. NEUROLOGIC: He is somnolent but arousable. He is oriented x3. LABORATORY DATA: Microbiologic data: Blood cultures 3/4 bottles drawn on August 03 are growing gram-positive cocci in chains, identified by PCR testing as group A strep. White blood cell count is 6.5, hematocrit 38.6, platelet count of 82, 80.7% neutrophils. BUN and creatinine are normal at 11 and 0.7, AST is 335, ALT is 147, alkaline phosphatase 158, albumin of 3.3, total bilirubin of 1.1. Ethyl alcohol level of 401. Previous hepatitis testing December 2017 reveals immunity to hepatitis A, hepatitis B surface antigen negative, hepatitis B surface antibody negative, and core antibody was negative. Hepatitis C testing was negative at that time, along with an HIV test. RADIOGRAPHIC DATA: Chest x-ray, AP view only showed "hypoventilatory chest with bibasilar atelectasis. Abdominal ultrasound on August 03 showed hepatomegaly and hepatic steatosis and mild splenomegaly. IMPRESSION: Unfortunate 28-year-old male with alcohol abuse disorder, admitted for complications related to this disease including alcoholic hepatitis and pancreatitis. The patient mounted an impressive fever yesterday and has been found to have group A strep bacteremia of unclear source. He does not have evidence of toxic shock syndrome or necrotizing fasciitis, thankfully. There is no evidence of ear, nose, and throat pathology, either. He does have some breaks in the skin, with an ulceration on his right hand which could be the portal of entry. PLAN: 1. Discontinue Ceftriaxone as this antibiotic can cause biliary sludging and confound his already abnormal liver function tests secondary to alcoholic hepatitis. 2. Start Penicillin 4 million units IV q.4 hours and Clindamycin 600 mg IV q.8 hours, with plans on discontinuing clindamycin at 48 hours. 3. Repeat blood cultures tomorrow. 4. The patient is immune to hepatitis A and had recent HIV testing that was negative. At his admission last January, I administered a hepatitis B vaccine which hopefully boosted his immunity. Will obtain hepatitis B surface antibody during this admission. 5. Although the patient is on minimal oxygen, with no obvious evidence of pneumonia on AP chest x-ray, would like him to have a PA and lateral at some point as group A strep bacteremia can come from bacteremic pneumonia as well. This seems less likely. Will also try to obtain sputum culture. Thank you very much for consulting Infectious Disease. We will continue to follow this patient with you. /[id number]/MODL MTDD
[2018-08-04] MEDS: CLINDAMYCIN 600 MG/DEXTROSE 50 ML IV SCH ×2 (11:55→17:52)
[2018-08-04] MEDS: LORazepam 1 MG TAB PO SCH ×3 (11:55→23:40)
[2018-08-04] MEDS ORDERED: K PHOS 15 MMOL in D5W 250 ML IV ONE (12:00)
[2018-08-04] MEDS: NS 1,000 ML IV SCH (12:33)
--- NOTE | 2018-08-04 12:34 | PDINTPN ---
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 Relatively severe. On Ativan and Precedex. On CIWA protocol. Acute and chronic alcoholism. Alcoholic hepatitis, pancreatitis. Apparently also has a history of hepatitis B or C. Serology pending. Fevers, blood cultures positive for group a strep. Possibly from skin. Appreciate ID consultation. On clindamycin, penicillin. Metabolic: On replacement protocols. Prophylaxis: On enoxaparin and famotidine. Nutrition: Starting regular diet Plan: Continue care in the intensive care unit. Continue IV fluids. Antibiotics per ID. Continue CIWA protocol. Wean Precedex as he improves. Continue scheduled Ativan as well as p.r.n. Follow laboratory. Continue electrolyte replacement protocols. Await hepatitis serologies. Mobilize as tolerated. 25 min of clinic time spent directly with the patient. Discussed with nursing and the ICU multi disciplinary team. Subjective: Somnolent, on Precedex, arouses weakly, responsive to simple questions/commands Objective: Vital Signs Temp Pulse Resp BP Pulse Ox 39.5 C H 91 29 H 119/79 97 08/04/18 11:57 08/04/18 11:57 08/04/18 11:57 08/04/18 11:57 08/04/18 11:57 Microbiology 08/03/18 13:10 Blood Panel (PCR) - Final Blood Strep Pyogenes Group A Laboratory Results 08/04/18 05:10 08/04/18 05:10 08/03/18 08/04/18 08/05/18 05:59 05:59 05:59 Intake Total 2250 3891.5 480 Output Total 540 1275 1200 Balance 1710 2616.5 -720 PT 12.3 SEC (12.0-15.0) 08/02/18 18:55 INR 0.95 (0.83-1.16) 08/02/18 18:55 Microbiology 08/03/18 13:10 Blood Blood Panel (PCR) - Final Strep Pyogenes Group A 08/03/18 13:10 Blood Blood Culture - Preliminary 08/03/18 13:10 Blood Gram Positive Cocci Chains Laboratory Tests 08/04/18 05:10 Calcium 8.0 L Phosphorus 1.4 L Magnesium 1.7 Total Bilirubin 1.1 AST 335 H ALT 147 H Albumin 3.3 L CXR: Small lung volumes secondary to hypoventilation. No infiltrates/ consolidation. Physical Exam - Physical Exam General Appearance: other (Somnolent/sedated) EENT: PERRL/EOMI, other (Nasal cannula in place at 2 L), No pharyngeal erythema Neck: No lymphadenopathy (R), No lymphadenopathy (L) Respiratory: lungs clear, decreased breath sounds (At bases), No rhonchi, No wheezing Cardiac/Chest: regular rate, rhythm (High 90s), No gallop Abdomen: soft, distended, hepatomegaly, No normal bowel sounds (Decreased, present), No non-tender (Mild tenderness) Skin: normal color, warm/dry, other (No evidence of cellulitis. Areas of psoriasis) Extremities: No pedal edema Neuro/Psych: no motor/sensory deficits (Moves all extremities), cognition abnormalities (Sedated with Ativan and Precedex, oriented to person, hospital) ICD10 Worksheet Patient Problems: Problems Problem Status Onset Acute alcoholic pancreatitis Acute Alcohol withdrawal Acute Alcohol abuse Acute Alcoholic pancreatitis Acute Contusion of right elbow Acute Contusion of left knee Acute Hepatitis Acute Alcoholic ketoacidosis Acute Vomiting Acute Abdominal pain Acute Alcohol intoxication Acute Pancreatitis Acute Elevated lipase Acute
--- NOTE | 2018-08-04 15:39 | HOSPPROG ---
Hospitalist Progress Note Assessment/Plan: * Etoh withdrawal -IV Precedex gtt added -schedule Ativan while on Precedex * Group A strep sepsis - high fever, tachycardia, clinically very unwell appearing -IV PCN + IV Clinda -unclear source - suspect skin/soft tissue * Etoh pancreatitis -advancing diet * Toxic/metabolic encephalopathy -slowly improving * Etoh hepatitis * Anxiety/depression/PTSD/Bipolar -refer to psych outpatient * Psoriasis * h/o IVDA - but not current - check HIV Subjective: No new complaints. Objective: Vital Signs Temp Pulse Resp BP Pulse Ox 39.5 C H 86 36 H 97/55 L 92 08/04/18 11:57 08/04/18 14:00 08/04/18 14:00 08/04/18 14:00 08/04/18 14:00 Microbiology 08/03/18 13:10 Blood Panel (PCR) - Final Blood Strep Pyogenes Group A Laboratory Results 08/04/18 05:10 08/04/18 05:10 08/03/18 08/04/18 08/05/18 05:59 05:59 05:59 Intake Total 2250 3891.5 480 Output Total 540 1275 1200 Balance 1710 2616.5 -720 PT 12.3 SEC (12.0-15.0) 08/02/18 18:55 INR 0.95 (0.83-1.16) 08/02/18 18:55 d/w DR. rouse regarding ID consult CXR viewed, my personal interpretation is - low lung volume, no infiltrate - Physical Exam Constitutional: no apparent distress, appears nourished, not in pain Cardiovascular: regular rate and rhythym, no murmur, rub, or gallop Respiratory: no respiratory distress, no rales or rhonchi, clear to auscultation Gastrointestinal: normoactive bowel sounds, soft, non-tender abdomen, no palpable masses Skin: no rashes or abrasions, no fluctuance, no induration, other (psoriasis plaques) Psychiatric: encephalopathic, flat affect, poor insight, poor judgement ICD10 Worksheet Patient Problems: Problems Problem Status Onset Abdominal pain Acute Alcohol intoxication Acute Alcohol withdrawal Acute Elevated lipase Acute Pancreatitis Acute Vomiting Acute Acute alcoholic pancreatitis Acute Alcohol abuse Acute Alcoholic ketoacidosis Acute Alcoholic pancreatitis Acute Contusion of left knee Acute Contusion of right elbow Acute Hepatitis Acute
[2018-08-04] MEDS: ACETAMINOPHEN 325 MG TAB PO PRN (16:06)
[2018-08-04] MEDS ORDERED: POTASSIUM CL 10 MEQ TAB PO ONE (22:59)
[2018-08-05] MEDS: LORazepam 2 MG/ML INJ IVP PRN ×8 (00:55→22:31)
[2018-08-05] MEDS: CLINDAMYCIN 600 MG/DEXTROSE 50 ML IV SCH ×3 (01:56→17:40)
[2018-08-05 03:12] LABS: HEPATITIS B SURFACE ANTIGEN NEGATIVE (NEGATIVE)
[2018-08-05 03:48] LABS: HEPATITIS A ANTIBODY IGM (BCH) NEGATIVE (NEGATIVE); HEPATITIS B CORE AB IGM NEGATIVE (NEGATIVE); HEPATITIS C ANTIBODY TOTAL NEGATIVE (NEGATIVE)
[2018-08-05] MEDS: PENICILLIN G POTASSIUM 4,000,000 UNIT in D5W 100 ML IV SCH ×6 (03:51→22:10)
[2018-08-05] MEDS: LORazepam 1 MG TAB PO SCH ×3 (05:38→17:40)
[2018-08-05] MEDS: PROMETHAZINE HCL 25 MG/ML INJ IVP PRN (06:20)
[2018-08-05] MEDS: DEXMEDETOMIDINE HCL 400 MCG in NS 100 ML IV SCH ×3 (07:33→22:10)
[2018-08-05] MEDS: THIAMINE HCL 500 MG in NS 100 ML IV SCH (07:34)
[2018-08-05] MEDS: FOLIC ACID 1 MG TAB PO SCH (08:41)
[2018-08-05] MEDS: MULTIVITAMINS 1 EACH TAB PO SCH (08:41)
[2018-08-05] MEDS: SENNOSIDES/DOCUSATE SODIUM TAB PO SCH (08:41)
[2018-08-05] MEDS: ENOXAPARIN 40 MG/0.4 ML SYR SC SCH (08:41)
[2018-08-05] MEDS: NICOTINE 21 MG/24 HR PATCH TD SCH (08:45)
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
[2018-08-05] MEDS ORDERED: MAGNESIUM SULF 2 GM/WATER 50 ML IV ONE (09:09)
[2018-08-05] MEDS ORDERED: POTASSIUM CL 10 MEQ TAB PO ONE ×2 (09:10→23:33)
--- NOTE | 2018-08-05 11:11 | ASMTCMCOM ---
CM Note CM Note Notes: Pt continues to remain on unit. Going through withdrawls, on CIWA protocol. Unable to engage in meaningful conversation about assessing use/ getting resources. CM contacted [facility], they are familiar with pt and will reach out tomorrow. CM to follow. Plan: Pt needs CAGE and possible linkage with PCP and [facility] Date Signed: 08/05/2018 11:10 AM Electronically Signed By:JUNIE Castrejon
[2018-08-05] MEDS ORDERED: K PHOS 10 MMOL in D5W 250 ML IV ONE (12:00)
--- NOTE | 2018-08-05 12:46 | PDINTPN ---
Supervisor Diagnostic Progress Note Assessment/Plan: Assessment/Plan: * Alcohol withdrawal. Relatively severe. On Ativan and Precedex. -continue CIWA protocol. * Acute and chronic alcoholism. * Alcoholic hepatitis, pancreatitis. Apparently also has a history of hepatitis B or C. -await Serology. * Fevers, blood cultures positive for group a strep. Possibly from skin. Appreciate ID consultation. -clindamycin, penicillin. * Metabolic: On replacement protocols. * Prophylaxis: On enoxaparin and famotidine. * Nutrition: Starting regular diet Subjective: Resting comfortably. No current complaints. Objective: Vital Signs Temp Pulse Resp BP Pulse Ox 36.8 C 77 22 H 111/74 90 L 08/05/18 11:49 08/05/18 11:49 08/05/18 11:49 08/05/18 11:49 08/05/18 11:49 Microbiology 08/03/18 13:10 Blood Panel (PCR) - Final Blood Strep Pyogenes Group A Laboratory Results 08/04/18 05:10 08/05/18 04:56 08/04/18 08/05/18 08/06/18 05:59 05:59 05:59 Intake Total 3891.5 4508 Output Total 1275 2850 750 Balance 2616.5 1658 -750 PT 12.3 SEC (12.0-15.0) 08/02/18 18:55 INR 0.95 (0.83-1.16) 08/02/18 18:55 - Time Spent With Patient Time Spent With Patient: 35 min of time spent with patient, over 1/2 involved with coordination of care or counseling. Case discussed with Nursing and infectious disease Physical Exam - Physical Exam General Appearance: other (Somnolent), No alert EENT: PERRL/EOMI Neck: non-tender, full range of motion Respiratory: chest non-tender, lungs clear Cardiac/Chest: normal peripheral pulses, regular rate, rhythm Peripheral Pulses: 2+: carotid (R), carotid (L), femoral (R), femoral (L), dorsalis-pedis (R), dorsalis-pedis (L) Abdomen: normal bowel sounds, non-tender, soft Male Genitalia: deferred Rectal: deferred Skin: normal color, warm/dry Extremities: normal range of motion, non-tender, normal inspection, normal capillary refill Neuro/Psych: No alert ICD10 Worksheet Patient Problems: Problems Problem Status Onset Abdominal pain Acute Alcohol intoxication Acute Alcohol withdrawal Acute Elevated lipase Acute Pancreatitis Acute Vomiting Acute Acute alcoholic pancreatitis Acute Alcohol abuse Acute Alcoholic ketoacidosis Acute Alcoholic pancreatitis Acute Contusion of left knee Acute Contusion of right elbow Acute Hepatitis Acute
--- NOTE | 2018-08-05 15:59 | HOSPPROG ---
Hospitalist Progress Note Assessment/Plan: * Etoh withdrawal -IV Precedex gtt + scheduled ativan * Group A strep sepsis - high fever, tachycardia, encephalopathy -IV PCN + IV Clinda -unclear source - suspect skin/soft tissue * Etoh pancreatitis -advancing diet * Toxic/metabolic encephalopathy -remains severely altered * Etoh hepatitis * Anxiety/depression/PTSD/Bipolar -refer to psych outpatient * Psoriasis * h/o IVDA - but not current - HIV negative Subjective: Remaind very altered, diaphoretic, minimally responsive Objective: Vital Signs Temp Pulse Resp BP Pulse Ox 36.8 C 75 36 H 112/84 H 90 L 08/05/18 11:49 08/05/18 15:35 08/05/18 15:35 08/05/18 15:35 08/05/18 15:35 Microbiology 08/03/18 13:10 Blood Panel (PCR) - Final Blood Strep Pyogenes Group A Laboratory Results 08/04/18 05:10 08/05/18 04:56 08/04/18 08/05/18 08/06/18 05:59 05:59 05:59 Intake Total 3891.5 4508 Output Total 1275 2850 1050 Balance 2616.5 1658 -1050 PT 12.3 SEC (12.0-15.0) 08/02/18 18:55 INR 0.95 (0.83-1.16) 08/02/18 18:55 - Physical Exam Constitutional: obese, unkempt Cardiovascular: regular rate and rhythym, no murmur, rub, or gallop Respiratory: no respiratory distress, no rales or rhonchi, clear to auscultation Gastrointestinal: normoactive bowel sounds, soft, non-tender abdomen, no palpable masses Skin: no rashes or abrasions, no fluctuance, no induration Neurologic: No AAOx3 Psychiatric: encephalopathic, poor insight, poor judgement, poor memory, No interacting appropriately, No agitated ICD10 Worksheet Patient Problems: Problems Problem Status Onset Abdominal pain Acute Alcohol intoxication Acute Alcohol withdrawal Acute Elevated lipase Acute Pancreatitis Acute Vomiting Acute Acute alcoholic pancreatitis Acute Alcohol abuse Acute Alcoholic ketoacidosis Acute Alcoholic pancreatitis Acute Contusion of left knee Acute Contusion of right elbow Acute Hepatitis Acute
--- NOTE | 2018-08-05 17:38 | PCMIDPN ---
Assessment/Plan: Assessment: Group a strep bacteremia with sepsis in a patient with underlying chronic alcohol issues. Patient is on penicillin 4 million units IV q.4 hours plus clindamycin 600 mg IV q.8 hours. Will continue this regimen going forward. There is a possible 2nd isolate in the blood cultures which is being separately worked up. It is also a gram-positive cocci in chains. Will await identification to see if this is indeed a 2nd species. Repeat blood cultures drawn today. Overall signs and laboratory values appear to be improving gradually. Plan: 1. Continue both IV penicillin and clindamycin. 2. Follow laboratory data as well as microbiologic identification. 3. Follow patient's clinical examination and complaints. Subjective: Patient is resting in a recliner in his ICU room. He complains of some stomach pain. He had some breakfast earlier today which was the 1st food he has eaten since admission. No fevers or chills subjectively. Denies rash. Objective: IV penicillin G # 1 IV clindamycin # 1 Vital Signs Temp Pulse Resp BP Pulse Ox 36.8 C 75 25 H 112/79 90 L 08/05/18 11:49 08/05/18 16:00 08/05/18 16:00 08/05/18 16:00 08/05/18 16:00 Microbiology 08/03/18 13:10 Blood Panel (PCR) - Final Blood Strep Pyogenes Group A Laboratory Results 08/04/18 05:10 08/05/18 04:56 08/04/18 08/05/18 08/06/18 05:59 05:59 05:59 Intake Total 3891.5 4508 Output Total 1275 2850 1050 Balance 2616.5 1658 -1050 - Physical Exam General Appearance: WD/WN, alert, no apparent distress, toxic (Mildly) Respiratory: lungs clear, normal breath sounds, No respiratory distress Cardiac/Chest: regular rate, rhythm, No tachycardia Extremities: non-tender, normal inspection Skin: normal color, warm/dry, No rash Neuro/Psych: alert, normal mood/affect, oriented x 3 ICD10 Worksheet Patient Problems: Problems Problem Status Onset Abdominal pain Acute Alcohol intoxication Acute Alcohol withdrawal Acute Elevated lipase Acute Pancreatitis Acute Vomiting Acute Acute alcoholic pancreatitis Acute Alcohol abuse Acute Alcoholic ketoacidosis Acute Alcoholic pancreatitis Acute Contusion of left knee Acute Contusion of right elbow Acute Hepatitis Acute
[2018-08-05] MEDS: NS 1,000 ML IV SCH (20:38)
[2018-08-06] MEDS: LORazepam 1 MG TAB PO SCH ×2 (00:12→07:41)
[2018-08-06] MEDS: LORazepam 2 MG/ML INJ IVP PRN ×4 (00:20→19:48)
[2018-08-06] MEDS: PENICILLIN G POTASSIUM 4,000,000 UNIT in D5W 100 ML IV SCH ×6 (02:00→22:18)
[2018-08-06] MEDS: CLINDAMYCIN 600 MG/DEXTROSE 50 ML IV SCH ×3 (03:17→18:58)
[2018-08-06] MEDS: SENNOSIDES/DOCUSATE SODIUM TAB PO SCH ×3 (03:25→22:19)
[2018-08-06] MEDS: DEXMEDETOMIDINE HCL 400 MCG in NS 100 ML IV SCH ×5 (04:08→23:36)
[2018-08-06 06:07] LABS: PLATELET COUNT 110 10^3/uL (150-400)
[2018-08-06] MEDS ORDERED: MAGNESIUM SULF 1 GM/DEXTROSE 100 ML IV ONE (08:12)
[2018-08-06] MEDS ORDERED: THIAMINE HCL 100 MG TAB PO SCH (09:00)
[2018-08-06] MEDS: ENOXAPARIN 40 MG/0.4 ML SYR SC SCH (09:10)
[2018-08-06] MEDS: NICOTINE 21 MG/24 HR PATCH TD SCH (09:10)
--- NOTE | 2018-08-06 09:20 | PDINTPN ---
Shot Coat Tender Progress Note Assessment/Plan: Assessment/Plan: * Alcohol withdrawal. Relatively severe. On Ativan and Precedex. CIWA score high again today -continue CIWA protocol. * Acute and chronic alcoholism. * Alcoholic hepatitis, pancreatitis. Apparently also has a history of hepatitis B or C. -await Serology. * Fevers, blood cultures positive for group a strep. Possibly from skin. Appreciate ID consultation. -clindamycin, penicillin. * Metabolic: On replacement protocols. * Prophylaxis: On enoxaparin and famotidine. * Nutrition: Starting regular diet Subjective: Resting comfortably. Somewhat somnolent. Still confused and tremulous. Objective: Vital Signs Temp Pulse Resp BP Pulse Ox 38.6 C H 79 33 H 132/92 H 92 08/06/18 07:47 08/06/18 07:47 08/06/18 07:47 08/06/18 07:47 08/06/18 07:47 Microbiology 08/03/18 13:20 Blood Culture - Final Blood Streptococcus Pyogenes Grp A 08/03/18 13:10 Blood Culture - Final Blood Streptococcus Pyogenes Grp A Blood Panel (PCR) - Final Strep Pyogenes Group A Laboratory Results 08/06/18 05:32 08/06/18 05:32 08/05/18 08/06/18 08/07/18 05:59 05:59 05:59 Intake Total 4508 3379 Output Total 2850 2650 Balance 1658 729 PT 12.3 SEC (12.0-15.0) 08/02/18 18:55 INR 0.95 (0.83-1.16) 08/02/18 18:55 - Time Spent With Patient Time Spent With Patient: 35 min of time spent with patient, over 1/2 involved coordination of care or counseling. Case discussed with nursing Physical Exam - Physical Exam General Appearance: alert, other (Confused) EENT: PERRL/EOMI Neck: non-tender Respiratory: lungs clear, No accessory muscle use, No wheezing Cardiac/Chest: normal peripheral pulses, regular rate, rhythm Peripheral Pulses: 2+: carotid (R), carotid (L), femoral (R), femoral (L), dorsalis-pedis (R), dorsalis-pedis (L) Abdomen: normal bowel sounds, non-tender, soft Male Genitalia: deferred Rectal: deferred Skin: normal color, warm/dry Extremities: normal range of motion, non-tender, normal inspection, normal capillary refill Neuro/Psych: alert, disoriented to place, disoriented to time ICD10 Worksheet Patient Problems: Problems Problem Status Onset Abdominal pain Acute Alcohol intoxication Acute Alcohol withdrawal Acute Elevated lipase Acute Pancreatitis Acute Vomiting Acute Acute alcoholic pancreatitis Acute Alcohol abuse Acute Alcoholic ketoacidosis Acute Alcoholic pancreatitis Acute Contusion of left knee Acute Contusion of right elbow Acute Hepatitis Acute
--- NOTE | 2018-08-06 11:01 | PCMIDPN ---
Assessment/Plan: Assessment/Plan: * Sepsis due to group A strep bacteremia likely related to skin and soft tissue infection with focus of erythema over abdominal wall: Persistent fever which may be related to group a strep bacteremia versus alcohol withdrawal. Given the persistent erythema over the abdominal wall and ongoing fever, will proceed with CT scan of the abdomen and pelvis to ensure no deeper seated process as this can occasionally be seen with group A Streptococcus. Continue penicillin and clindamycin (initially plan to discontinue today but in the setting of ongoing fever will continue). Repeat blood cultures are pending to assess for clearing of bacteremia. Reviewed with lab and 2nd isolate of GPC in chains is also group A Streptococcus. 08/06/18 10:58 Subjective: Patient is somnolent on Precedex drip. Complains of pain in his "diaphragm". Points to area over lower abdomen. Objective: Vital Signs Temp Pulse Resp BP Pulse Ox 38.6 C H 79 33 H 132/92 H 92 08/06/18 07:47 08/06/18 07:47 08/06/18 07:47 08/06/18 07:47 08/06/18 07:47 Microbiology 08/03/18 13:20 Blood Culture - Final Blood Streptococcus Pyogenes Grp A 08/03/18 13:10 Blood Culture - Final Blood Streptococcus Pyogenes Grp A Blood Panel (PCR) - Final Strep Pyogenes Group A Laboratory Results 08/06/18 05:32 08/06/18 05:32 08/05/18 08/06/18 08/07/18 05:59 05:59 05:59 Intake Total 4508 3379 Output Total 2850 2650 Balance 1658 729 Temperature 38.6 degrees Penicillin # 2 Clindamycin # 2 Blood cultures 08/03/2018 2/2 sets group A Streptococcus Blood cultures 08/05/2018 x2 sets pending Laboratory Tests 08/05/18 08/06/18 04:56 05:32 Total Bilirubin 1.4 AST 173 H ALT 121 H Alkaline Phosphatase 133 H HIV 1&2 Ab/P24 Ag 4thGn NEGATIVE - Physical Exam General Appearance: other (Diaphoretic, somnolent but responds to questions slowly) EENT: No scleral icterus, No thrush Respiratory: lungs clear, No respiratory distress Cardiac/Chest: regular rate, rhythm, No systolic murmur Extremities: inflammation (Abrasions over both hands without active cellulitis) Abdomen: non-tender, other (Erythematous patch over left lower abdomen which is slightly extended beyond previously demarcated line; mild induration without fluctuance; mild tenderness to palpation; erythema does not extend into inguinal region or flank) Skin: No embolic lesions Neuro/Psych: other (Somnolent but arousable) ICD10 Worksheet Patient Problems: Problems Problem Status Onset Abdominal pain Acute Alcohol intoxication Acute Alcohol withdrawal Acute Elevated lipase Acute Pancreatitis Acute Vomiting Acute Acute alcoholic pancreatitis Acute Alcohol abuse Acute Alcoholic ketoacidosis Acute Alcoholic pancreatitis Acute Contusion of left knee Acute Contusion of right elbow Acute Hepatitis Acute
[2018-08-06] MEDS: THIAMINE HCL 100 MG in NS 100 ML IV SCH (11:17)
[2018-08-06] MEDS: LORazepam 2 MG/ML INJ IV SCH ×2 (11:20→17:43)
[2018-08-06] MEDS: FOLIC ACID 1 MG TAB PO SCH (11:33)
[2018-08-06] MEDS: MULTIVITAMINS 1 EACH TAB PO SCH (11:34)
[2018-08-06] MEDS ORDERED: K PHOS 10 MMOL in D5W 250 ML IV ONE (12:00)
[2018-08-06] MEDS: NS 1,000 ML IV SCH (12:33)
[2018-08-06] MEDS ORDERED: IOPAMIDOL (ISOVUE 370) 100 ML BTL IV ONE (13:15)
--- NOTE | 2018-08-06 14:47 | HOSPPROG ---
Hospitalist Progress Note Assessment/Plan: * Etoh withdrawal -IV Precedex gtt + ativan * Group A strep sepsis - high fever, tachycardia, encephalopathy -IV PCN + IV Clinda -suspect skin/soft tissue - has focus of cellulitis LLQ abdominal wall * Etoh pancreatitis -advancing diet * Toxic/metabolic encephalopathy -remains severely altered * Etoh hepatitis * Anxiety/depression/PTSD/Bipolar -refer to psych outpatient * Psoriasis * h/o IVDA - but not current - HIV negative Subjective: Bad night - severe agitation Objective: Vital Signs Temp Pulse Resp BP Pulse Ox 37.4 C 68 37 H 121/92 H 93 08/06/18 11:23 08/06/18 11:23 08/06/18 11:23 08/06/18 11:23 08/06/18 11:23 Microbiology 08/03/18 13:20 Blood Culture - Final Blood Streptococcus Pyogenes Grp A 08/03/18 13:10 Blood Culture - Final Blood Streptococcus Pyogenes Grp A Blood Panel (PCR) - Final Strep Pyogenes Group A Laboratory Results 08/06/18 05:32 08/06/18 05:32 08/05/18 08/06/18 08/07/18 05:59 05:59 05:59 Intake Total 4508 3379 Output Total 2850 2650 Balance 1658 729 PT 12.3 SEC (12.0-15.0) 08/02/18 18:55 INR 0.95 (0.83-1.16) 08/02/18 18:55 d/w Dr. Carrillo regarding plan for CT scan CT abd - small focus of gas SubQ corresponding with LLQ erythema - Physical Exam Constitutional: no apparent distress, appears nourished, not in pain Cardiovascular: regular rate and rhythym, no murmur, rub, or gallop Respiratory: no respiratory distress, no rales or rhonchi, clear to auscultation Gastrointestinal: normoactive bowel sounds, soft, non-tender abdomen, no palpable masses Skin: erythema (small focus LLQ abdominal wall) Neurologic: No AAOx3 Psychiatric: encephalopathic, poor insight, poor judgement, poor memory, No interacting appropriately ICD10 Worksheet Patient Problems: Problems Problem Status Onset Acute alcoholic pancreatitis Acute Alcohol withdrawal Acute Alcohol abuse Acute Alcoholic pancreatitis Acute Contusion of right elbow Acute Contusion of left knee Acute Hepatitis Acute Alcoholic ketoacidosis Acute Vomiting Acute Abdominal pain Acute Alcohol intoxication Acute Pancreatitis Acute Elevated lipase Acute
--- NOTE | 2018-08-06 16:18 | ASMTCMCOM ---
CM Note CM Note Notes: Patient remains severely altered. CAGE and resources on hold for now. CM following. Date Signed: 08/06/2018 04:17 PM Electronically Signed By:Kristen Guerra LCSW
[2018-08-07] MEDS: LORazepam 2 MG/ML INJ IV SCH ×2 (01:52→07:12)
[2018-08-07] MEDS: CLINDAMYCIN 600 MG/DEXTROSE 50 ML IV SCH ×2 (01:52→11:30)
[2018-08-07] MEDS: PENICILLIN G POTASSIUM 4,000,000 UNIT in D5W 100 ML IV SCH ×5 (01:53→18:36)
[2018-08-07] MEDS: LORazepam 2 MG/ML INJ IVP PRN ×2 (03:29→08:39)
[2018-08-07] MEDS: NICOTINE 21 MG/24 HR PATCH TD SCH (03:30)
--- NOTE | 2018-08-07 08:33 | PDINTPN ---
Attending Pathologist Progress Note Assessment/Plan: Assessment/Plan: * Alcohol withdrawal. Relatively severe. On Ativan and Precedex. CIWA remains high. Mental status is somewhat better today. -continue CIWA protocol. * Acute and chronic alcoholism. * Alcoholic hepatitis, pancreatitis. Apparently also has a history of hepatitis B * Fevers, blood cultures positive for group a strep. Possibly from skin. Appreciate ID consultation. -clindamycin, penicillin. * Metabolic: On replacement protocols. * Prophylaxis: On enoxaparin and famotidine. * Nutrition: Eating well. Subjective: Sitting up in bed. Comfortable. Does complain of some back pain. Objective: Vital Signs Temp Pulse Resp BP Pulse Ox 37.2 C 78 18 117/91 H 93 08/07/18 08:00 08/07/18 08:00 08/07/18 08:00 08/07/18 08:00 08/07/18 08:00 Microbiology 08/03/18 13:20 Blood Culture - Final Blood Streptococcus Pyogenes Grp A 08/03/18 13:10 Blood Culture - Final Blood Streptococcus Pyogenes Grp A Blood Panel (PCR) - Final Strep Pyogenes Group A Laboratory Results 08/06/18 05:32 08/07/18 05:00 08/06/18 08/07/18 08/08/18 05:59 05:59 05:59 Intake Total 3379 5503 Output Total 2650 4800 Balance 729 703 PT 12.3 SEC (12.0-15.0) 08/02/18 18:55 INR 0.95 (0.83-1.16) 08/02/18 18:55 Laboratory Results 08/06/18 05:32 08/07/18 05:00 08/06/18 08/04/18 05:32 11:31 Calcium 7.7 mg/dL L mg/dL (8.5 - 10.4) Phosphorus 1.9 mg/dL L mg/dL (2.5 - 4.5) Magnesium 1.5 mg/dL L mg/dL (1.6 - 2.3) Total Bilirubin 1.4 mg/dL mg/dL (0.1 - 1.4) Conjugated Bilirubin 0.8 mg/dL H mg/dL (0.0 - 0.5) Unconjugated Bilirubin 0.6 mg/dL mg/dL (0.0 - 1.1) AST 173 IU/L H IU/L (17 - 59) ALT 121 IU/L H IU/L (21 - 72) Alkaline Phosphatase 133 IU/L H IU/L (38 - 126) Total Protein 5.5 g/dL L g/dL (6.3 - 8.2) Albumin 2.9 g/dL L g/dL (3.5 - 5.0) Hep Bs Antibody Positive Hep Bs Antibody, Quant 222 mIU/mL mIU/mL 08/03/18 13:20 Blood Culture - Preliminary Blood Streptococcus Pyogenes Grp A 08/03/18 13:10 Blood Culture - Preliminary Blood Blood Panel (PCR) - Final Streptococcus Pyogenes Grp A Strep Pyogenes Group A - Time Spent With Patient Time Spent With Patient: 35 min of time spent with patient, over 1/2 involved coordination of care or counseling. Case discussed with nursing Physical Exam - Physical Exam General Appearance: alert, no apparent distress EENT: PERRL/EOMI Neck: non-tender, full range of motion, supple Respiratory: chest non-tender, lungs clear, normal breath sounds Cardiac/Chest: normal peripheral pulses, regular rate, rhythm Peripheral Pulses: 2+: carotid (R), carotid (L), femoral (R), femoral (L), dorsalis-pedis (R), dorsalis-pedis (L) Abdomen: normal bowel sounds, non-tender, soft Male Genitalia: deferred Rectal: deferred Skin: normal color, warm/dry Extremities: non-tender Neuro/Psych: alert, oriented x 3 ICD10 Worksheet Patient Problems: Problems Problem Status Onset Abdominal pain Acute Alcohol intoxication Acute Alcohol withdrawal Acute Elevated lipase Acute Pancreatitis Acute Vomiting Acute Acute alcoholic pancreatitis Acute Alcohol abuse Acute Alcoholic ketoacidosis Acute Alcoholic pancreatitis Acute Contusion of left knee Acute Contusion of right elbow Acute Hepatitis Acute
[2018-08-07] MEDS: DEXMEDETOMIDINE HCL 400 MCG in NS 100 ML IV SCH (08:39)
[2018-08-07] MEDS: SENNOSIDES/DOCUSATE SODIUM TAB PO SCH (08:47)
[2018-08-07] MEDS: FOLIC ACID 1 MG TAB PO SCH (08:47)
[2018-08-07] MEDS: MULTIVITAMINS 1 EACH TAB PO SCH (08:47)
[2018-08-07] MEDS: ENOXAPARIN 40 MG/0.4 ML SYR SC SCH (08:47)
[2018-08-07] MEDS: THIAMINE HCL 100 MG in NS 100 ML IV SCH (08:48)
--- NOTE | 2018-08-07 10:59 | PCMIDPN ---
Assessment/Plan: #Fever: last fever 38.6 in AM 08/06 #GAS bacteremia and Abdominal wall cellulitis, CT without focal abscess. C/o of upper L spine/lower T spine back pain and ANGELES today. Concern for discitis/OM spine. Also c/o ANGELES and meningitis possible but we would be covering GAS meningitis w high dose PEN G therefore can hold off on LP. More important to eval spine in cases of need for surgical intervention. Blood cultures are clear as of 08/05. --MRI T and L spine w/ w/o contrast --DC clinda s/p 3 days --continue high dose PEN G, no toxicity noted #Elevated LFTS: likely EtOH, trending down # h/o MSSA bacteremia related to PIV Microbiology 08/03/18 13:20 Blood Cx 2/2: Streptococcus Pyogenes Grp A 08/05/18 09:00 Blood Cx 2/2: NGTD HIV, HCV negative HBV immune Meds Clinda 600mg IV q8h, 08/04 Pen G 4MU IV 4h, 08/04 Subjective: Complaining of mid thoracic back pain that has been progressive over the last several weeks as well as diffuse headache with light sensitivity He feels like something is wrong with him Objective: Vital Signs Temp Pulse Resp BP Pulse Ox 36.9 C 66 39 H 133/98 H 91 L 08/07/18 08:57 08/07/18 09:58 08/07/18 09:58 08/07/18 09:58 08/07/18 09:58 Microbiology 08/03/18 13:20 Blood Culture - Final Blood Streptococcus Pyogenes Grp A 08/03/18 13:10 Blood Culture - Final Blood Streptococcus Pyogenes Grp A Blood Panel (PCR) - Final Strep Pyogenes Group A Laboratory Results 08/06/18 05:32 08/07/18 05:00 08/06/18 08/07/18 08/08/18 05:59 05:59 05:59 Intake Total 2492 5503 Output Total 6970 4690 1025 Balance 729 153 1020 - Physical Exam General Appearance: alert, no apparent distress EENT: scleral icterus, dry mucous membranes Respiratory: lungs clear, No accessory muscle use Neck: supple, No meningismus Cardiac/Chest: regular rate, rhythm Extremities: pedal edema Abdomen: other (small area focal faint erythema LLQ, no crepitis, mild tendernss ) Skin: No rash Neuro/Psych: no motor/sensory deficits, alert, normal mood/affect, oriented x 3 , No facial droop (care coordinated with Dr. Toth) - Time Spent With Patient Time Spent with Patient: greater than 35 minutes Time Spent with Patient: Greater than 35 minutes spent on this patients care, greater than 50% of time spent counseling, educating, and coordinating care regarding the above mentioned plan. ICD10 Worksheet Patient Problems: Problems Problem Status Onset Abdominal pain Acute Alcohol intoxication Acute Alcohol withdrawal Acute Elevated lipase Acute Pancreatitis Acute Vomiting Acute Acute alcoholic pancreatitis Acute Alcohol abuse Acute Alcoholic ketoacidosis Acute Alcoholic pancreatitis Acute Contusion of left knee Acute Contusion of right elbow Acute Hepatitis Acute
[2018-08-07] MEDS: chlordiazePOXIDE 25 MG CAP PO SCH ×2 (11:31→14:21)
[2018-08-07] MEDS ORDERED: POTASSIUM CL 10 MEQ TAB PO ONE (11:54)
[2018-08-07] MEDS: ONDANSETRON 4 MG/2 ML VIAL IVP PRN (13:15)
[2018-08-07] MEDS: LORazepam 1 MG TAB PO PRN ×2 (14:21→19:56)
[2018-08-07 14:47] VITALS: BP 104/79
--- NOTE | 2018-08-07 15:29 | HOSPPROG ---
Hospitalist Progress Note Assessment/Plan: * Etoh withdrawal -IV Precedex gtt + ativan -continue to wean benzos * Group A strep sepsis - high fever, tachycardia, encephalopathy -IV PCN + IV Clinda -c/o severe mid back pain - d/w Dr. Bruce -check MRI T/L spine * Etoh pancreatitis -advancing diet * Toxic/metabolic encephalopathy -improving * Etoh hepatitis * Anxiety/depression/PTSD/Bipolar -refer to psych outpatient * Psoriasis * h/o IVDA - but not current - HIV negative Subjective: c/o severe mid back pain and headache. Originally from [facility]. Mom and dad are . Half siblings that he doesn't speak to. 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 Objective: Vital Signs Temp Pulse Resp BP Pulse Ox 37.4 C 83 27 H 104/79 95 08/07/18 14:46 08/07/18 14:46 08/07/18 14:46 08/07/18 14:46 08/07/18 14:46 Laboratory Results 08/06/18 05:32 08/07/18 05:00 08/06/18 08/07/18 08/08/18 05:59 05:59 05:59 Intake Total 3379 5503 Output Total 2650 4800 1025 Balance 729 703 -1025 PT 12.3 SEC (12.0-15.0) 08/02/18 18:55 INR 0.95 (0.83-1.16) 08/02/18 18:55 - Physical Exam Constitutional: no apparent distress, appears nourished, not in pain Cardiovascular: regular rate and rhythym, no murmur, rub, or gallop Respiratory: no respiratory distress, no rales or rhonchi, clear to auscultation Gastrointestinal: normoactive bowel sounds, soft, non-tender abdomen, no palpable masses Skin: warm, normal color, other (diaphoretic), No mottled, No abrasion Neurologic: AAOx3 Psychiatric: interacting appropriately, encephalopathic, other (slow to respond but able to give history today), No agitated ICD10 Worksheet Patient Problems: Problems Problem Status Onset Abdominal pain Acute Alcohol intoxication Acute Alcohol withdrawal Acute Elevated lipase Acute Pancreatitis Acute Vomiting Acute Acute alcoholic pancreatitis Acute Alcohol abuse Acute Alcoholic ketoacidosis Acute Alcoholic pancreatitis Acute Contusion of left knee Acute Contusion of right elbow Acute Hepatitis Acute
[2018-08-07] MEDS: PROMETHAZINE HCL 25 MG/ML INJ IVP PRN (16:52)
[2018-08-08] MEDS ORDERED: THIAMINE HCL 100 MG TAB PO SCH (09:00)
[2018-08-09] MEDS ORDERED: LORazepam 1 MG TAB PO SCH (11:40)
--- NOTE | 2018-08-09 13:28 | GDS ---
[f rep st] DISCHARGE SUMMARY Please note, this was an against medical advice exit from the hospital. Patient had a blood stream i nfection for which he left without receiving any antibiotics. DIAGNOSES: 1. Group A strep sepsis. 2. Alcohol withdrawal. 3. Alcohol pancreatitis. 4. Toxic metabolic encephalopathy. 5. Alcohol hepatitis. 6. Anxiety, depression, posttraumatic stress disorder and bipolar. 7. Psoriasis. 8. History of distant IV drug abuse. HISTORY: The patient is a 28-year-old male, heavy alcoholic, who presented with alcohol withdrawal. He spiked a very high fever within the first 24 hours of admission and blood cultures were drawn th at showed group A strep. Infectious Disease was consulted. He received IV antibiotics during his ti me with us. When his mental status improved he did complain of severe back pain. We ordered MRI of thoracic and lumbar spine. The patient left AMA prior to this being obtained. He left AMA urgently without any physician visit. He left without any antibiotics. The patient went through very severe alcohol withdrawal. He required IV Precedex for multiple days. He was very confused, consistent with toxic metabolic encephalopathy. Once his mental status improv ed, he left AMA shortly thereafter. He does have a distant history of IV drug abuse but nothing curr ent. His HIV and hep C are negative. /[id number]/MODL
== END 2018-08-07 22:00 | disposition left against medical advice (07) | DRG 720 ==
LOC: EDUNIT# → OBSVTOIN 21:11 → F3N 21:51 → F2N 23:30
PROVIDERS: ADMIT Internal Medicine; ATTEND Internal Medicine
DX: A40.0 Sepsis due to streptococcus, group A (principal); K85.20 Alcohol induced acute pancreatitis without necrosis or infection; G92 Toxic encephalopathy; K70.10 Alcoholic hepatitis without ascites; Y90.8 Blood alcohol level of 240 mg/100 ml or more; E86.9 Volume depletion, unspecified; F10.239 Alcohol dependence with withdrawal, unspecified; F10.220 Alcohol dependence with intoxication, uncomplicated; K59.00 Constipation, unspecified; F41.9 Anxiety disorder, unspecified; F32.9 Major depressive disorder, single episode, unspecified; F43.10 Post-traumatic stress disorder, unspecified; F31.9 Bipolar disorder, unspecified; L40.9 Psoriasis, unspecified; Z72.0 Tobacco use; Z59.0 Homelessness; Z86.19 Personal history of other infectious and parasitic diseases
CPT/HCPCS: 96374; 97116-GP; 97162-GP; 97166-GO; 97530-GO; 97530-GP; 97535-GO; G0472; G0480; J0696; J1650; J2060; J2405; J2540; J2550; J2560; J3411; J3475; J3480; Q9967

== ENCOUNTER 2018-08-10 06:42 | Emergency (ER) | payer MEDICAID ==
[2018-08-10] MEDS ORDERED: NS 1,000 ML IV ONE (06:46)
[2018-08-10 07:18] LABS: PLATELET COUNT 488 10^3/uL (150-400)
--- NOTE | 2018-08-10 07:51 | EDPHY ---
H & P Time Seen by Provider: 08/10/18 06:57 HPI/ROS: HPI Alcohol withdrawal seizure. 28-year-old male by ambulance. [place]. He reportedly had a witnessed seizure by bystander who called EMS. He does have a history of alcohol abuse. He is homeless. He has a history of alcohol withdrawal seizures. There is no history of trauma or assault. He states his last drink was sometime yesterday. ROS: Constitutional: No fever, no chills. As above. Eyes: No discharge. No changes in vision. ENT: No sore throat. No nasal congestion or rhinorrhea. Respiratory: No cough. No shortness of breath. Cardiac: No chest pain, no palpitations. Gastrointestinal: No abdominal pain, no vomiting, no diarrhea. Genitourinary: No hematuria. No dysuria or increased frequency with urination. Musculoskeletal: No back pain. No neck pain. No myalgias or arthralgias. Skin: No rashes. Neurological: No headache. No focal weakness or altered sensation. Past medical history: Bipolar, PTSD, anxiety, alcohol abuse, alcohol withdrawal seizures, psoriasis, homeless. Social history: Smoker. History of alcohol abuse. Homeless. Currently here by himself. Physical Exam: General Appearance: Alert, mildly tremulous but not in distress. This patient is responding to questions appropriately and in full sentences. This patient appears well-hydrated and well-nourished. Head: Normocephalic atraumatic. Eyes: Pupils equal and round no pallor or injection. No lid edema, erythema or injection. ENT, Mouth: Mucous membranes are moist. The pharyngeal tissues are unremarkable. No edema or swelling. No asymmetry suggestive of abscess. No erythema or exudates. No tongue bite wounds. Respiratory: There are no retractions, lungs are clear to auscultation with good air movement bilaterally. Cardiovascular: Regular rate and rhythm. Borderline tachycardia. No murmur. Gastrointestinal: Abdomen is soft and nontender, no masses, bowel sounds normal. No focal tenderness at McBurney's point. No Sparks sign. Neurological: Motor sensory function is grossly intact. Cranial nerves are normal. Gait is normal. Skin: Warm and dry, no rashes. Musculoskeletal: Neck is supple and nontender. No midline cervical, thoracic, lumbar, sacral tenderness on palpation. Extremities are symmetrical. All joints range without pain or impingement. Psychiatric: No agitation. No depression. Database: EKG: Imaging: Procedures: Emergency department course: Triage vital signs reviewed. He is afebrile. He is mildly tachycardic. An IV was placed per EMS. The patient was placed on a cardiac tech. On my evaluation his neurologic Assessment is nonfocal. He is now requesting discharge. I explained to him that I could give him some medication to help prevent seizure and that there is some probability of him having another seizure. In my professional opinion he understands this but is requesting discharge regardless. Follow-up and return to emergency department precautions reviewed with him. All of his questions were answered. He was discharged from the emergency department in good condition. Differential Diagnosis: The differential diagnosis on this patient includes but is not limited to alcohol withdrawal seizure. Traumatic brain injury, hypoglycemia, hyponatremia , meningitis, encephalitis unlikely. This represents a partial list of diagnoses considered. These considerations are based on history, physical exam , past history, reassessment and diagnostic testing. Smoking Status: Current every day smoker Constitutional: Initial Vital Signs Temperature (C) 36.7 C 08/10/18 06:44 Heart Rate 109 H 08/10/18 06:44 Respiratory Rate 20 08/10/18 06:44 Blood Pressure 125/72 H 08/10/18 06:44 O2 Sat (%) 93 08/10/18 06:44 O2 Delivery Mode Room Air Allergies/Adverse Reactions: gabapentin [From Neurontin] Allergy (Verified 08/10/18 06:44) Home Medications: Medication Instructions Recorded NK [No Known Home Meds] 08/02/18 Medical Decision Making - Data Points Laboratory Results: Laboratory Results 08/10/18 07:10 08/10/18 07:10 08/10/18 08/10/18 07:10 07:10 WBC 7.19 10^3/uL 10^3/uL (3.80-9.50) RBC 3.87 10^6/uL L 10^6/uL (4.40-6.38) Hgb 13.2 g/dL L g/dL (13.7-17.5) Hct 38.1 % L % (40.0-51.0) MCV 98.4 fL fL (81.5-99.8) MCH 34.1 pg pg (27.9-34.1) MCHC 34.6 g/dL g/dL (32.4-36.7) RDW 13.1 % % (11.5-15.2) Plt Count 488 10^3/uL H 10^3/uL (150-400) MPV 10.6 fL fL (8.7-11.7) Neut % (Auto) 56.6 % % (39.3-74.2) Lymph % (Auto) 27.5 % % (15.0-45.0) [place] % (Auto) 12.8 % % (4.5-13.0) Eos % (Auto) 1.5 % % (0.6-7.6) Baso % (Auto) 1.0 % % (0.3-1.7) Nucleat RBC Rel Count 0.0 % % (0.0-0.2) Absolute Neuts (auto) 4.07 10^3/uL 10^3/uL (1.70-6.50) Absolute Lymphs (auto) 1.98 10^3/uL 10^3/uL (1.00-3.00) Absolute Monos (auto) 0.92 10^3/uL H 10^3/uL (0.30-0.80) Absolute Eos (auto) 0.11 10^3/uL 10^3/uL (0.03-0.40) Absolute Basos (auto) 0.07 10^3/uL 10^3/uL (0.02-0.10) Absolute Nucleated RBC 0.00 10^3/uL 10^3/uL (0-0.01) Immature Gran % 0.6 % % (0.0-1.1) Immature Gran # 0.04 10^3/uL 10^3/uL (0.00-0.10) Sodium 140 mEq/L mEq/L (135-145) Potassium 3.6 mEq/L mEq/L (3.5-5.2) Chloride 103 mEq/L mEq/L (97-110) Carbon Dioxide 17 mEq/l L mEq/l (22-31) Anion Gap 20 mEq/L H mEq/L (6-14) BUN 2 mg/dL L mg/dL (7-23) Creatinine 0.7 mg/dL mg/dL (0.7-1.3) Estimated GFR > 60 Glucose 105 mg/dL H mg/dL (70-100) Calcium 9.0 mg/dL mg/dL (8.5-10.4) Ethyl Alcohol < 10 mg/dL mg/dL (0-10) Medications Given: Discontinued Medications Sodium Chloride (Ns) 1,000 mls @ 0 mls/hr IV EDNOW ONE; Wide Open PRN Reason: Protocol Stop: 08/10/18 06:47 Last Admin: 08/10/18 07:09 Dose: 1,000 mls Departure - Departure Disposition: Home, Routine, Self-Care Clinical Impression: Alcohol abuse, Seizure Condition: Good Instructions: Alcohol Withdrawal (ED) Additional Instructions: Read and follow provided instructions. Follow-up with your primary care physician on Sunday or Sunday of this coming week for re-evaluation and to discuss alcohol detox options. Return to the emergency department for worsening symptoms, seizure or other serious concerns. Referrals: [facility],. [Clinic] - As per Instructions
[2018-08-10 08:19] VITALS: BP 110/79
== END 2018-08-10 08:16 | disposition home or self-care (01) ==
LOC: EDUNIT#
DX: F10.230 Alcohol dependence with withdrawal, uncomplicated (principal); G40.909 Epilepsy, unspecified, not intractable, without status epilepticus; E86.9 Volume depletion, unspecified
CPT/HCPCS: G0480

== ENCOUNTER 2018-09-04 15:15 | Inpatient (IN) | payer MEDICAID | END 2018-09-10 12:00 | disposition home or self-care (01) | LOC: F3E 09-08 11:11 → F2N 09-06 17:30 → F3E 20:40 ==